=== PATIENT | female | born 1935 | race Caucasian/White ===

== ENCOUNTER 2018-04-28 04:44 | Inpatient (IN) ==
--- NOTE | 2018-04-28 04:56 | Emergency Department Report ---
General Adult HPI - General Stated complaint: dec LOC <Lincoln Lopez - 04/28/18 04:55> Time Seen by Provider: 04/28/18 04:54 <Lincoln Lopez - 04/28/18 04:55> Source: EMS, other (residential staff) <Lincoln Lopez - 04/28/18 05:04> Mode of arrival: EMS <Lincoln Lopez - 04/28/18 05:04> Limitations: other (dementia/non-verbal) <Lincoln Lopez - 04/28/18 05:04> - History of Present Illness HPI narrative: 82-year-old female presents to the emergency department for evaluation of a decline in mental status over the past 48 hours. Patient resides at [facility]. Patient has been requiring supplemental oxygen at 3 L by nasal cannula. She does not typically use supplemental oxygen. Patient does have dementia and is only typically able to say simple statements. Patient had been having difficulty staying awake and when sleeping was more difficult to arouse. History is limited by the patient's current clinical condition. <Lincoln Lopez - 04/28/18 05:14> - Related Data Home Medications Medication Instructions Recorded Confirmed Acetaminophen [Acetaminophen 8 650 mg PO PRN PRN 04/28/18 04/28/18 Hour] Aspirin [Ecotrin] 81 mg PO DAILY 04/28/18 04/28/18 Digoxin [Lanoxin] 125 mcg PO DAILY 04/28/18 04/28/18 Furosemide [Lasix] 40 mg PO DAILY 04/28/18 04/28/18 Ibuprofen [Ibu] 600 mg PO PRN PRN 04/28/18 04/28/18 Levothyroxine Sodium 50 mcg PO DAILY 04/28/18 04/28/18 Metoprolol Succinate [Toprol Xl] 50 mg PO DAILY 04/28/18 04/28/18 Milk of Magnesia [Mom] 30 ml PO PRN PRN 04/28/18 04/28/18 Ondansetron HCl 4 mg PO PRN PRN 04/28/18 04/28/18 Potassium Chloride [Klor-Con M20] 20 meq PO DAILY 04/28/18 04/28/18 Sertraline [Zoloft] 25 mg PO DAILY 04/28/18 04/28/18 <Lincoln Lopez - 04/28/18 05:22> Allergies Allergy/AdvReac Type Severity Reaction Status Date / Time Cephalosporins Allergy Verified 04/28/18 05:03 Sulfonylureas Allergy Verified 04/28/18 05:03 <Lincoln Lopez 04/28/18 05:04> Review of Systems Limitations: ROS unobtainable due to patient's medical condition <Lincoln Lopez 04/28/18 05:06> [facility] Patient Stated Medical History Dementia Yes Cataracts Yes Cardiac Arrhythmia Yes: afib Hypertension Yes Chronic Obstructive Pulmonary Yes Disease (COPD) Other Respiratory Yes: emphysema Other GI Yes: diaphragmatic hernia Hx Incontinence Yes Depression Yes <Isaias Varner - 04/28/18 07:04> Coronary artery disease, anxiety, dementia, depression, cataracts, hypertension , atrial fibrillation, COPD, constipation, altered mental status, generalized weakness, difficulty with gait <Lincoln Lopez 04/28/18 05:14> Surgical History: TKR <Lincoln Lopez 04/28/18 05:06> Family History: Reviewed and Noncontributory. <Lincoln Lopez 04/28/18 05:06> - Social History Smoking status: Unknown if ever smoked <Lincoln Lopez 04/28/18 05:14> Substance use type: does not use <Lincoln Lopez 04/28/18 05:06> Alcohol intake frequency: does not drink <Lincoln Lopez 04/28/18 05:06> Physical Exam - Limitations Limitations: other (Dementia, AMS) <Lincoln Lopez 04/28/18 05:14> - General General appearance: alert, in no apparent distress <Lincoln Lopez 04/28/18 05:14> - Normal Exams: Head:: Normocephalic without trauma <Lincoln Lopez 04/28/18 05:14> Eyes:: Pupils are PERRLA w/ EOMI, No scleral icterus, irritation, or foreign bodies noted <Lincoln Lopez 04/28/18 05:14> ENMT:: No facial trauma, nasal exudates, pharyngeal erythema, or exudates are noted <Lincoln Lopez 04/28/18 05:14> Neck:: Full range of motion, without adenopathy, JVD, bruits or thyromegaly < Lincoln Lopez [facility] 04/28/18 05:14> Chest/Respirations:: with good airflow (Bibasilar rales. ), and symmetry bilaterally <Lincoln Lopez 04/28/18 05:22> Cardiovascular:: Regular rate and rhythm, without murmur or gallop, Pulses 2+ all extremities, capillary refill, <2 seconds all extremities <Lincoln Lopez [facility] 04/28/18 05:14> Abdomen:: Bowel sounds positive, soft, non-tender, non-distended, no hepatosplenomegaly, masses or bruits noted <Lincoln Lopez 04/28/18 05:14> Lymphatic:: No lymphadenopathy, or lymphedema noted <Lincoln Lopez [facility] 04/28/18 05:14> Musculoskeletal:: No tenderness, or deformity noted, good range of motion, all extremities <Lincoln Lopez [facility] 04/28/18 05:14> Integumentary:: No rashes, hives, or bruising noted, hair and nails, without abnormality <Lincoln Lopez [facility] 04/28/18 05:14> Neurological:: Patient is alert <Lincoln Lopez [facility] 04/28/18 05:14> Course Vital Signs Temperature 97.6 F 04/28/18 04:44 Pulse Rate 78 04/28/18 04:44 Respiratory Rate 20 04/28/18 04:44 Blood Pressure 114/72 04/28/18 04:44 Pulse Oximetry 76 L 04/28/18 04:44 Temperature 97.6 F 04/28/18 04:44 Pulse Rate 63 04/28/18 05:33 Respiratory Rate 20 04/28/18 04:44 Blood Pressure 118/59 04/28/18 05:33 Pulse Oximetry 96 04/28/18 05:33 <Isaias Varner Q - 04/28/18 07:08> Medical Decision Making - [facility] Narrative Medical decision making narrative: Patient showing acute left frontal CVA, urinary tract infection, CHF exacerbation. Currently in the emergency Department patient is received 750 mg of Levaquin IV 1, 20 mg of Lasix IV 1. Discuss case with Dr. Owens, she will admit to the floor. <Isaias Varner - 04/28/18 07:08> Patient care turned over to Dr. Almaz Varner at 0600. She was given Levaquin 750 mg IV 1 at 0615 when sepsis was considered. Patient had a lactic acid less than 4 and was never hypotensive in the emergency department. <Lincoln Lopez - 04/28/18 06:11> - Medical Records Medical records reviewed: Yes: I reviewed the patient's medical records. < Isaias Varner Q - 04/28/18 07:08> - Lab Data Lab results reviewed: Yes: I reviewed the patient's lab results. <Isaias Varner - 04/28/18 07:08> Result diagrams: 04/28/18 05:24 04/28/18 05:25 <Lincoln Lopez - 04/28/18 04:55> Lab Results 04/28/18 04/28/18 04/28/18 Range/Units 05:24 05:25 05:25 WBC 5.6 (4.5-11.0) T/MM3 RBC 4.12 (4.00-5.20) M/MM3 Hgb 12.2 (12-16) GM/DL Hct 40.0 (36-46) % MCV 97.1 (80-100) UM3 MCH 29.6 (26-34) UUG MCHC 30.5 L (31-37) GM/DL RDW Std Deviation 51.7 H (36.9-50.2) FL Plt Count 170 (130-400) T/MM3 MPV 9.5 (9.4-12.4) UM3 Immature Gran % (Auto) 0.0 (0.0-0.5) % Neut % (Auto) 62.7 (33-66) % Lymph % (Auto) 24.6 (23-45) % [place] % (Auto) 11.2 H (0-9.0) % Eos % (Auto) 1.1 (0-4) % Baso % (Auto) 0.4 (0-2) % Neut # (Auto) 3.5 (1.8-7.7) T/MM3 Lymph # (Auto) 1.4 (1-4.8) T/MM3 [place] # (Auto) 0.6 (0-0.8) T/MM3 Eos # (Auto) 0.1 (0-0.5) T/MM3 Baso # (Auto) 0.0 (0-0.2) T/MM3 Abs Immat Gran (auto) 0.00 (0.00-0.03) T/MM3 Turbidity < 20 (0-20) Sodium 141 (134-144) MEQ/L Potassium 5.2 H (3.6-5) MEQ/L Chloride 100 (98-107) MEQ/L Carbon Dioxide 32 H (22-30) MEQ/L Anion Gap 9 (5-15) meq/L BUN 24.0 H (7-17) MG/DL Creatinine 0.5 L (0.7-1.2) mg/dL GFR Calculation 118 BUN/Creatinine Ratio 48 H (6-26) RATIO Glucose 90 (65-110) MG/DL Calculated Osmolality 275 (261-280) MOSM/KG Calcium 8.5 (8.4-10.2) MG/DL Total Bilirubin 0.90 (0.20-1.30) MG/DL Icterus Index < 2 (0-7) AST 23 (14-36) U/L ALT 19 (1-35) U/L Alkaline Phosphatase 66 (38-126) U/L Troponin I < 0.012 (0-0.12) ng/ml NT-Pro-B Natriuret Pep 1480 H (0-175) pg/mL Total Protein 6.5 (6.3-8.2) g/dL Albumin 3.8 (3.5-5.0) g/dL Globulin 2.7 (2.4-3.6) G/DL Albumin/Globulin Ratio 1.4 (1.1-2.2) RATIO Plasma Lactate (0.6-2.2) MMOL/L TSH 4.64 (0.47-4.68) mIU/L Specimen Hemolysis 22 (0-25) Ur Collection Type Urine, cath straight Urine Color Yellow (YELLOW) Urine Clarity Cloudy Urine pH 6.0 (5.0-8.0) Ur Specific [place] >=1.030 H (1.015-1.025) Urine Protein Trace A (NEGATIVE) Urine Glucose (UA) Negative (NEGATIVE) Urine Ketones Negative (NEGATIVE) Urine Occult Blood 1+ A (NEGATIVE) Urine Nitrate Positive A (NEGATIVE) Urine Bilirubin Negative (NEGATIVE) Urine Urobilinogen 0.2 (NORMAL) EU/DL Ur Leukocyte Esterase 2+ A (NEGATIVE) Urine RBC 5-10 H (0-3) /HPF Urine WBC 50-200 H (0-5) /HPF Urine Bacteria 3+ H (NEGATIVE) Ur Culture Indicated? Cult reflexed &setup Digoxin 0.6 L (0.8-2.0) NG/ML 04/28/18 Range/Units 06:27 WBC (4.5-11.0) T/MM3 RBC (4.00-5.20) M/MM3 Hgb (12-16) GM/DL Hct (36-46) % MCV (80-100) UM3 MCH (26-34) UUG MCHC (31-37) GM/DL RDW Std Deviation (36.9-50.2) FL Plt Count (130-400) T/MM3 MPV (9.4-12.4) UM3 Immature Gran % (Auto) (0.0-0.5) % Neut % (Auto) (33-66) % Lymph % (Auto) (23-45) % [place] % (Auto) (0-9.0) % Eos % (Auto) (0-4) % Baso % (Auto) (0-2) % Neut # (Auto) (1.8-7.7) T/MM3 Lymph # (Auto) (1-4.8) T/MM3 [place] # (Auto) (0-0.8) T/MM3 Eos # (Auto) (0-0.5) T/MM3 Baso # (Auto) (0-0.2) T/MM3 Abs Immat Gran (auto) (0.00-0.03) T/MM3 Turbidity (0-20) Sodium (134-144) MEQ/L Potassium (3.6-5) MEQ/L Chloride (98-107) MEQ/L Carbon Dioxide (22-30) MEQ/L Anion Gap (5-15) meq/L BUN (7-17) MG/DL Creatinine (0.7-1.2) mg/dL GFR Calculation BUN/Creatinine Ratio (6-26) RATIO Glucose (65-110) MG/DL Calculated Osmolality (261-280) MOSM/KG Calcium (8.4-10.2) MG/DL Total Bilirubin (0.20-1.30) MG/DL Icterus Index (0-7) AST (14-36) U/L ALT (1-35) U/L Alkaline Phosphatase (38-126) U/L Troponin I (0-0.12) ng/ml NT-Pro-B Natriuret Pep (0-175) pg/mL Total Protein (6.3-8.2) g/dL Albumin (3.5-5.0) g/dL Globulin (2.4-3.6) G/DL Albumin/Globulin Ratio (1.1-2.2) RATIO Plasma Lactate 0.9 (0.6-2.2) MMOL/L TSH (0.47-4.68) mIU/L Specimen Hemolysis (0-25) Ur Collection Type Urine Color (YELLOW) Urine Clarity Urine pH (5.0-8.0) Ur Specific [place] (1.015-1.025) Urine Protein (NEGATIVE) Urine Glucose (UA) (NEGATIVE) Urine Ketones (NEGATIVE) Urine Occult Blood (NEGATIVE) Urine Nitrate (NEGATIVE) Urine Bilirubin (NEGATIVE) Urine Urobilinogen (NORMAL) EU/DL Ur Leukocyte Esterase (NEGATIVE) Urine RBC (0-3) /HPF Urine WBC (0-5) /HPF Urine Bacteria (NEGATIVE) Ur Culture Indicated? Digoxin (0.8-2.0) NG/ML <Isaias Varner Q - 04/28/18 07:08> - Radiology Data Radiology results reviewed: Yes: I reviewed the patient's radiology results. < Isaias Varner - 04/28/18 07:08> CT head: Left frontal acute versus subacute infarct Chest x-ray cardiomegaly, edema consistent with CHF exacerbation, cannot completely rule out infiltrate <Isaias Varner - 04/28/18 07:08> - EKG Data EKG #1 EKG results narrative: Atrial Fibrillation. 61 bpm. No STEMI. <Lincoln Lopez - 04/28/18 05:49> Disposition Clinical Impression: CVA (cerebral vascular accident) Qualifiers: CVA mechanism: occlusion Precerebral and cerebral artery: anterior cerebral artery Laterality of affected vessel: left Qualified Code(s): I63.522 - Cerebral infarction due to unspecified occlusion or stenosis of left anterior cerebral artery Urinary tract infection Qualifiers: Urinary tract infection type: acute cystitis Hematuria presence: without hematuria Qualified Code(s): N30.00 - Acute cystitis without hematuria CHF exacerbation Qualifiers: Heart failure type: unspecified Qualified Code(s): I50.9 - Heart failure, unspecified <Lincoln Lopez - 04/28/18 18:13> Disposition: 02 To [facility] Acute Care <Lincoln Lopez - 04/28/18 18:13> Condition: Stable <Lincoln Lopez - 04/28/18 18:13> Instructions: <Lincoln Lopez - 04/28/18 04:55> Prescriptions: No Action Ibuprofen [Ibu] 600 mg PO PRN PRN PRN Reason: Pain Acetaminophen [Acetaminophen 8 Hour] 650 mg PO PRN PRN PRN Reason: Pain Sertraline [Zoloft] 25 mg PO DAILY Metoprolol Succinate [Toprol Xl] 50 mg PO DAILY Potassium Chloride [Klor-Con M20] 20 meq PO DAILY Levothyroxine Sodium 50 mcg PO DAILY Digoxin [Lanoxin] 125 mcg PO DAILY Aspirin [Ecotrin] 81 mg PO DAILY Ondansetron HCl 4 mg PO PRN PRN PRN Reason: Nausea Milk of Magnesia [Mom] 30 ml PO PRN PRN PRN Reason: Constipation Furosemide [Lasix] 40 mg PO DAILY <Lincoln Lopez - 04/28/18 05:22> Referrals: Ayana Woods MD [Primary Care Provider] - <Lincoln Lopez - 04:55> Forms: <Lincoln Lopez - 04/28/18 04:55> Time of Disposition: 07:06 <Isaias Varner - 04/28/18 07:08> - Seen By: physician <Isaias Varner - 04/28/18 07:08>
--- OUTSIDE RECORDS SUMMARY | 2018-04-28 05:02 | External Medical Summary | Continuity of Care Document ---
:1935 Author Organization [employer] Phone Unavailable Care Team Providers Name Role Phone LENO MIRANDA M.D. Unavailable Insurance Providers Guarantor Suki Bennett Address [address] [place] [phone] Payer [employer] Medicare Policy Number [id number] Subscriber's Name Suki Bennett Relationship 01 Self / Same As Patient Effective Date 09 Chief Complaint and Reason for Visit Chief Complaint Chest Pain Reason for Visit Chest pain Problems Active Problems Medical Problem Onset Date Status Anemia Unknown Acute Bradycardia Unknown Resolved [facility]R 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 COPD (chronic obstructive pulmonary disease) 09/30/2011 Acute COPD exacerbation Unknown Acute Chest pain Unknown Acute Encounter for long-term (current) use of other medications Unknown Acute Hypotension Unknown Acute Hypotension Unknown Acute Hypoventilation Unknown Acute Hypoxia Unknown Acute Low back pain Unknown Acute Lumbar strain Unknown Acute Minor head injury Unknown Acute Pneumonia Unknown Acute Pneumonia Unknown Acute Pulmonary HTN Unknown Chronic Respiratory failure, acute Unknown Acute UTI (urinary tract infection) Unknown Acute Urinary tract infection Unknown Acute Past Problems Medical Problem Onset Date Bronchitis Unknown Leg edema Unknown Nonspecific chest pain Unknown Peripheral edema Unknown Peripheral edema Unknown Weakness Unknown Medications Current Home Medications Medication Dose Units Route Directions Days Qty Instructions Start Date Aspirin 81 Mg Oral Daily 10/24/15 (Aspir-81) 81 Mg Tab Digoxin 0.125 Mg 1 Tablet Oral Daily 30 Tablet 12/09/16 Tab Furosemide 40 Mg 2 Tab Oral Daily 65 Tablet TAKE 2 IN THE 03/07/17 Tab AM AND 1 IN THE AFTERNOON FOR 5 DAYS, THEN BACK TO 2 IN THE AM. Levothyroxine 50 Mcg Oral Daily 30 Tablet 03/11/17 Sodium 50 Mcg Tab Metoprolol 1 Tab Oral Daily 30 Tablet 12/09/16 Succinate (Toprol Xl) 50 Mg Tab Potassium 10 Meq Oral Twice A Day 65 Tablet TAKE TID FOR 5 01/27/17 Chloride (K-Tabs) DAYS, THEN BACK 10 Meq Tab TO BID Past Home Medications Medication Directions Ordered Status Albuterol Sulfate (Proventil Hfa) 05/07/16 Discontinued Hfa Aer, 1 Inhalation Ciprofloxacin Hcl (Cipro) 500 Mg Twice A Day 12/03/16 Discontinued Tab, 500 Mg Oral Digoxin 0.125 Mg Tab, 1 Tablet Daily 09/13/16 Discontinued Oral Digoxin (Lanoxin) 0.125 Mg Tab, 1 Daily 02/13/16 Discontinued Tab Oral Digoxin 0.125 Mg Tab, 1 Tablet Daily 09/13/16 Discontinued Oral Digoxin (Lanoxin) 0.125 Mg Tab, 1 Daily 02/09/16 Discontinued Tab Oral Digoxin (Lanoxin) 0.125 Mg Tab, 1 Daily 10/14/15 Discontinued Tab Oral Digoxin (Lanoxin) 0.125 Mg Tab, 1 Daily 09/09/15 Discontinued Tab Oral Digoxin (Lanoxin) 0.125 Mg Tab, 1 Daily 02/10/15 Discontinued Tab Oral Digoxin (Lanoxin) 0.125 Mg Tab, 1 Daily 01/22/15 Discontinued Tab Oral Digoxin (Lanoxin) 0.125 Mg Tab, 1 Daily 12/23/14 Discontinued Tab Oral Digoxin (Lanoxin) 0.125 Mg Tab, 1 Daily 11/13/14 Discontinued Tab Oral Digoxin (Lanoxin) 0.125 Mg Tab, 1 Daily 10/07/14 Discontinued Tab Oral Digoxin (Lanoxin) 0.125 Mg Tab, 1 Daily 09/17/14 Discontinued Tab Oral Digoxin (Lanoxin) 0.125 Mg Tab, 1 Daily 03/13/14 Discontinued Tab Oral Digoxin (Lanoxin) 0.125 Mg Tab, 1 Daily 10/01/13 Discontinued Tab Oral Digoxin (Lanoxin) 0.125 Mg Tab, 1 Daily 08/28/13 Discontinued Tab Oral Digoxin (Lanoxin) 0.125 Mg Tab, 1 Daily 08/22/13 Discontinued Tab Oral Digoxin (Lanoxin) 0.125 Mg Tab, 1 Daily 01/19/13 Discontinued Tab Oral Digoxin (Lanoxin) 0.125 Mg Tab, 1 Daily 09/28/12 Discontinued Tab Oral Digoxin (Lanoxin) 0.125 Mg Tab, 1 Daily 06/05/12 Discontinued Tab Oral Digoxin (Lanoxin) 0.125 Mg Tab, 1 Daily 03/10/12 Discontinued Tab Oral Digoxin (Lanoxin) 0.125 Mg Tab, 1 Daily 12/06/11 Discontinued Tab Oral Digoxin (Lanoxin) 0.125 Mg Tab, 1 Daily 08/03/11 Discontinued Tab Oral Digoxin (Lanoxin) 0.125 Mg Tab, 1 Daily 07/13/10 Discontinued Tab Oral Furosemide 40 Mg Tab, 2 Tab Oral Daily 06/28/16 Discontinued Furosemide 40 Mg Tab, 2 Tab Oral Daily 06/18/16 Discontinued Furosemide 40 Mg Tab, 2 Tab Oral Daily 03/15/16 Discontinued Furosemide 40 Mg Tab, 2 Tab Oral Daily 02/13/16 Discontinued Furosemide 40 Mg Tab, 2 Tab Oral Daily 02/24/15 Discontinued Furosemide 40 Mg Tab, 1 Tab Oral Daily 02/06/15 Discontinued Furosemide (Lasix 40 Mg Po) 40 Mg Daily 12/12/13 Discontinued Tab, 2 Tab Oral Furosemide (Lasix) 40 Mg Tab, 2 Twice A Day 06/18/14 Discontinued Tab Oral Furosemide 40 Mg Tab, 2 Tab Oral Daily 08/26/14 Discontinued Furosemide (Lasix 40 Mg Po) 40 Mg Daily 09/12/13 Discontinued Tab, 2 Tab Oral Furosemide (Lasix 40 Mg Po) 40 Mg Daily 07/03/13 Discontinued Tab, 2 Tab Oral Furosemide (Lasix 40 Mg Po) 40 Mg Daily 06/15/13 Discontinued Tab, 40 Mg Oral Furosemide (Lasix) 20 Mg Tab, 1 Daily 01/19/13 Discontinued Tab Oral Furosemide (Lasix) 20 Mg Tab, 1 Daily 09/28/12 Discontinued Tab Oral Furosemide (Lasix) 20 Mg Tab, 1 Daily 06/05/12 Discontinued Tab Oral Furosemide (Lasix) 20 Mg Tab, 1 Daily 03/10/12 Discontinued Tab Oral Furosemide (Lasix) 20 Mg Tab, 1 Daily 12/06/11 Discontinued Tab Oral Furosemide (Lasix) 20 Mg Tab, 1 Daily 08/03/11 Discontinued Tab Oral Furosemide (Lasix) 20 Mg Tab, 1 Daily 07/13/10 Discontinued Tab Oral Hydrocodone-Acetaminophen (Lortab Every 6 Hours As Needed 09/16/11 Discontinued 5/500) Tab, 1 Tab Oral Levothyroxine Sodium 25 Mcg Tab, Daily 02/17/17 Discontinued 50 Mcg Oral Levothyroxine Sodium 25 Mcg Tab, Daily 12/03/16 Discontinued 25 Mcg Oral Metolazone 2.5 Mg Tab, 2.5 Mg Oral Daily 03/29/16 Discontinued Metoprolol Succinate (Toprol Xl) Daily 09/13/16 Discontinued 50 Mg Tab, 1 Tab Oral Metoprolol Succinate (Toprol Xl) Daily 02/13/16 Discontinued 50 Mg Tab, 1 Tab Oral Metoprolol Succinate (Toprol Xl) Daily 09/09/15 Discontinued 50 Mg Tab, 1 Tab Oral Metoprolol Succinate (Toprol Xl) Daily 02/10/15 Discontinued 50 Mg Tab, 1 Tab Oral Metoprolol Succinate (Toprol Xl) Daily 01/22/15 Discontinued 50 Mg Tab, 1 Tab Oral Metoprolol Succinate (Toprol Xl) Daily 12/23/14 Discontinued 50 Mg Tab, 1 Tab Oral Metoprolol Succinate (Toprol Xl) Daily 11/13/14 Discontinued 50 Mg Tab, 1 Tab Oral Metoprolol Succinate (Toprol Xl) Daily 10/07/14 Discontinued 50 Mg Tab, 1 Tab Oral Metoprolol Succinate (Toprol Xl) Daily 09/17/14 Discontinued 50 Mg Tab, 1 Tab Oral Metoprolol Succinate (Toprol Xl) Daily 03/13/14 Discontinued 50 Mg Tab, 50 Mg Oral Metoprolol Succinate (Toprol Xl) Daily 02/04/14 Discontinued 50 Mg Tab, 50 Mg Oral Metoprolol Succinate (Toprol Xl) Daily 08/22/13 Discontinued 50 Mg Tab, 50 Mg Oral Metoprolol Succinate (Toprol Xl) Daily 02/23/13 Discontinued 50 Mg Tab, 50 Mg Oral Metoprolol Succinate (Toprol Xl) Daily 08/07/12 Discontinued 50 Mg Tab, 50 Mg Oral Metoprolol Succinate (Toprol Xl) Daily 05/09/12 Discontinued 50 Mg Tab, 50 Mg Oral Metoprolol Succinate (Toprol Xl) Daily 03/02/12 Discontinued 50 Mg Tab, 50 Mg Oral Metoprolol Succinate (Toprol Xl) Daily 12/06/11 Discontinued 50 Mg Tab, 50 Mg Oral Metoprolol Succinate (Toprol Xl) Daily 06/11/11 Discontinued 50 Mg Tab, 50 Mg Oral Metoprolol Succinate (Toprol Xl) Daily 07/13/10 Discontinued 25 Mg Tab, 1 Tab Oral Nitrofurantoin Monohyd Macro Twice A Day 12/06/16 Discontinued (Macrobid) 100 Mg Cap, 100 Mg Oral Potassium Bicarbonate Daily 01/19/13 Discontinued (K-Effervescent) 25 Meq Tab, 25 Meq Oral Potassium Bicarbonate Daily 09/28/12 Discontinued (K-Effervescent) 25 Meq Tab, 25 Meq Oral Potassium Bicarbonate Daily 06/05/12 Discontinued (K-Effervescent) 25 Meq Tab, 25 Meq Oral Potassium Bicarbonate Daily 03/10/12 Discontinued (K-Effervescent) 25 Meq Tab, 25 Meq Oral Potassium Bicarbonate Daily 12/06/11 Discontinued (K-Effervescent) 25 Meq Tab, 25 Meq Oral Potassium Bicarbonate Daily 06/11/11 Discontinued (K-Effervescent) 25 Meq Tab, 25 Meq Oral Potassium Bicarbonate Daily 07/13/10 Discontinued (Klor-Con/Ef) 25 Meq Tabef, 25 Meq Oral Potassium Chloride (K-Tabs) 10 Meq Twice A Day 06/18/16 Discontinued Tab, 10 Meq Oral Potassium Chloride (K-Tabs) 10 Meq Twice A Day 02/13/16 Discontinued Tab, 10 Meq Oral Potassium Chloride (K-Tabs) 10 Meq Twice A Day 02/09/16 Discontinued Tab, 10 Meq Oral Potassium Chloride (K-Tabs) 10 Meq Twice A Day 02/09/16 Discontinued Tab, 10 Meq Oral Potassium Chloride (K-Tabs) 10 Meq Twice A Day 10/24/15 Discontinued Tab, 10 Meq Oral Potassium Chloride (Potassium Daily 02/06/15 Discontinued Chloride Er) 10 Meq Tab, 1 Tab Oral Potassium Chloride (Potassium Twice A Day 08/26/14 Discontinued Chloride Er) 10 Meq Tab, 1 Tab Oral Potassium Chloride (Potassium Twice A Day 07/26/14 Discontinued Chloride Er) 10 Meq Tab, 1 Tab Oral Potassium Chloride (Potassium Twice A Day 12/12/13 Discontinued Chloride Er) 10 Meq Tab, 1 Tab Oral Potassium Chloride (Potassium Twice A Day 10/08/13 Discontinued Chloride Er) 10 Meq Tab, 1 Tab Oral Potassium Chloride (Potassium Daily 08/28/13 Discontinued Chloride Er) 10 Meq Tab, 1 Tab Oral Potassium Chloride (Potassium Daily 07/05/13 Discontinued Chloride Er) 10 Meq Tab, 2 Tab Oral Potassium Chloride (Potassium Daily 06/15/13 Discontinued Chloride Er) 10 Meq Tab, 2 Tab Oral Potassium Chloride (Potassium Daily 06/01/13 Discontinued Chloride Er) 10 Meq Tab, 10 Meq Oral Prednisone 10 Mg Tab, 10 Mg Oral As Directed for Copd 06/26/16 Discontinued Prednisone 10 Mg Tab, 10 Mg Oral Twice A Day for Not Specified 04/07/16 Discontinued Prednisone 10 Mg Tab, 10 Mg Oral Daily for Not Specified 04/07/16 Discontinued Social History Social History Problem Response Recorded Date/Time Onset Date Status Hx Alcohol Use No 04/04/2016 7:38pm Not Applicable Not Applicable Hx Smoking Exposure Yes 04/04/2016 7:38pm Not Applicable Not Applicable Smoking Status Former smoker 04/15/2017 9:14am Not Applicable Not Applicable Query Response Start Date Stop Date Smoking Status Former smoker Hospital Discharge Instructions No hospital discharge instructions. Plan of Care Discharge Date 04/15/17 10:28am Disposition 01 HOME, SELF-CARE Condition at Discharge Stable Instructions/Education Provided Instructions from visit on: 02/16/17 Lab today.Encouraged her to explore ways with her family that might however to remember to take her medications in a more reliable manner though I think she has done pretty well for the last month probably.No change in medications. Reassess here in 6-8 weeks. Prescriptions See Medication Section Referrals LENO MIRANDA M.D. Address: [address] [place] [phone] Additional Instructions/Education Please follow up with your doctor in 2-3 days.
Please take your medications and wear oxygen.
Please call primary care doctor or return to emergency department immediately if fever, difficulty of breathing, persistent/worsening pain, or anything concerning. Functional Status No functional status results. Allergies, Adverse Reactions, Alerts Allergen Type Severity Reaction Status Last Updated Cephalosporins ([id number]) Allergy Unknown Active 03/03/17 Sulfonylureas ([id number]) Allergy Unknown Active 03/03/17 Sulfones ([id number]) Allergy Unknown Active 03/03/17 Immunizations Immunization Event Date Type Not Given Dose Number Lot Number Director Cpg Reason Tetanus, 08/31/10 Administered 1 Diphtheria Vaccine Vital Signs Acute Vital Signs Vital Response Date/Time Blood Pressure 126/69 mm Hg 04/15/2017 10:22am Blood Pressure Mean 88 mm Hg 04/15/2017 10:22am Temperature (Fahrenheit) 97.7 degrees F (96.0 - 99.9) 04/15/2017 9:01am Temperature (Calculated Celsius) 36.78994 degrees C 04/15/2017 9:01am Temperature Source Oral 04/07/2016 8:45am Temperature Source Oral 04/15/2017 9:01am Pulse Pulse Rate (adult) 72 bpm (60 - 100) 06/26/2016 7:47pm Pulse Rate: ED 90 bpm 04/15/2017 10:22am Apical Pulse Rate 85 bpm (60 - 90) 04/07/2016 8:47am Respiratory Rate 18 breaths per minute (10 - 20) 04/15/2017 10:22am Height (Feet) 5 ft 04/15/2017 9:01am Height (Inches) 2.0 in. 04/15/2017 9:01am Weight (Pounds) 142.4 lbs 04/15/2017 9:01am Height 5 ft 2 in 04/15/2017 9:01am Weight 142.40 lb 04/15/2017 9:01am Body Mass Index 26.0 kg/m^2 04/15/2017 9:01am Ambulatory Vital Signs Vital Response Date/Time Height 5 ft 1 in 02/16/2017 1:55pm Weight 128 lbs 02/16/2017 1:55pm Blood Pressure, Sitting, Left Arm 125/65 mm Hg 02/16/2017 1:55pm Body Surface Area 1.59 m2 02/16/2017 1:55pm Body Mass Index 24.2 kg/m2 02/16/2017 1:55pm Pulse Oximetry Pulse Oximetry 02/16/2017 1:55pm Results Laboratory Results Test Name Result Units Flags Reference Collection Result Comments Date/Time Date/Time Immature 2.7 % L 3.0-15.9 10/26/2015 10/26/2015 Platelet 6:00am 7:06am Fraction Activated 28.5 SECONDS 24.0-37.0 10/23/2015 10/23/2015 Partial 6:10pm 6:43pm Thromboplas t Time Urine WBC 0-1 /hpf NONE 10/25/2015 10/25/2015 Clumps 10:51am 11:21am Urine Casts 1-3 GRANULAR /lpf NONE 10/25/2015 10/25/2015 10:51am 11:21am Urine 1+ 10/25/2015 10/25/2015 Amorphous 10:51am 11:21am Sediment Urine Other Trichomonas 10/25/2015 10/25/2015 10:51am 11:21am Bedside 167 mg/dL H 70-120 10/25/2015 10/25/2015 Notify Glucose 9:26am 9:51am Nurse &#10 ; Amylase 57 U/L 16-108 10/23/2015 10/23/2015 Level 6:49pm 7:18pm Total 93 U/L 10-180 10/26/2015 10/26/2015 Creatine 6:00am 7:00am Kinase Creatine 1.2 ng/mL # 0.0-6.0 10/26/2015 10/26/2015 Kinase MB 6:00am 7:19am Lactic Acid 2.3 mmol/L H 0.5-2.2 10/23/2015 10/23/2015 Level 6:49pm 7:18pm Arterial 7.44 7.35-7.45 10/27/2015 10/27/2015 Blood pH 2:00pm 2:42pm Blood Gas 58 mmHg H 35-45 10/27/2015 10/27/2015 PCO2 2:00pm 2:42pm Blood Gas 119 mmHg H 89-100 10/27/2015 10/27/2015 PO2 2:00pm 2:42pm Blood Gas 12.9 mEq/L 10/27/2015 10/27/2015 Base Excess 2:00pm 2:42pm Arterial 41.2 mM/L H 21-27 10/27/2015 10/27/2015 Blood Total 2:00pm 2:42pm CO2 Arterial 39.4 mEq/L H 10/27/2015 10/27/2015 Blood HCO3 2:00pm 2:42pm MRSA MRSA NEGATIVE NEGATIVE 04/04/2016 04/04/2016 Surveillanc 6:40pm 9:09pm e Screen Digoxin 0.7 ng/ml L 0.8-2.0 06/26/2016 06/26/2016 Level 7:35pm 8:41pm White Blood 7.1 x10E3/uL 3.4-10.8 12/02/2016 12/03/2016 Count 2:05pm 6:08am Red Blood 4.58 x10E6/uL 3.77-5.28 12/02/2016 12/03/2016 Count 2:05pm 6:08am Hemoglobin 13.8 g/dL 11.1-15.9 12/02/2016 12/03/2016 2:05pm 6:08am Hematocrit 43.5 % 34.0-46.6 12/02/2016 12/03/2016 2:05pm 6:08am Mean 95 fL 79-97 12/02/2016 12/03/2016 Corpuscular 2:05pm 6:08am Volume Mean 30.1 pg 26.6-33.0 12/02/2016 12/03/2016 Corpuscular 2:05pm 6:08am Hemoglobin Mean 31.7 g/dL 31.5-35.7 12/02/2016 12/03/2016 Corpuscular 2:05pm 6:08am Hemoglobin Concent Red Cell 13.9 % 12.3-15.4 12/02/2016 12/03/2016 Distributio 2:05pm 6:08am n Width Platelet 206 x10E3/uL 150-379 12/02/2016 12/03/2016 Count 2:05pm 6:08am Neutrophils 74 % . 12/02/2016 12/03/2016 % (Send 2:05pm 6:08am Out) Lymphocytes 19 % . 12/02/2016 12/03/2016 2:05pm 6:08am Monocytes 6 % . 12/02/2016 12/03/2016 2:05pm 6:08am Eosinophils 1 % . 12/02/2016 12/03/2016 2:05pm 6:08am Basophils 0 % . 12/02/2016 12/03/2016 2:05pm 6:08am Absolute 5.2 x10E3/uL 1.4-7.0 12/02/2016 12/03/2016 Neutrophils 2:05pm 6:08am (auto) Absolute 1.4 x10E3/uL 0.7-3.1 12/02/2016 12/03/2016 Lymphocytes 2:05pm 6:08am (auto) Absolute 0.4 x10E3/uL 0.1-0.9 12/02/2016 12/03/2016 Monocytes 2:05pm 6:08am (auto) Absolute 0.1 x10E3/uL 0.0-0.4 12/02/2016 12/03/2016 Eosinophils 2:05pm 6:08am (auto) Absolute 0.0 x10E3/uL 0.0-0.2 12/02/2016 12/03/2016 Basophils 2:05pm 6:08am (auto) Immature 0 % . 12/02/2016 12/03/2016 Granulocyte 2:05pm 6:08am s Absolute 0.0 x10E3/uL 0.0-0.1 12/02/2016 12/03/2016 Immature 2:05pm 6:08am Granulocyte (auto Sedimentati 24 mm/hr 0-40 12/02/2016 12/03/2016 Performed at: [facility]
on Rate, 2:05pm 7:11am [address] [place] [phone]
[employer] Tech: DIDI Cao MD, Phone: [phone] &# 10; C-Reactive 1.4 mg/L 0.0-4.9 12/02/2016 12/03/2016 Performed at: [facility]
Protein, 2:05pm 11:10am [address] [place] [phone]
[employer] Tech: DIDI Cao MD, Phone: [phone] &# 10; e Serum Total 7.0 g/dL 6.0-8.5 12/02/2016 12/03/2016 Protein 2:05pm 1:02pm Albumin 4.5 g/dL 3.5-4.7 12/02/2016 12/03/2016 2:05pm 1:02pm Globulin 2.5 g/dL 1.5-4.5 12/02/2016 12/03/2016 2:05pm 1:02pm Albumin/Jenny 1.8 1.1-2.5 12/02/2016 12/03/2016 bulin Ratio 2:05pm 1:02pm Total 0.5 mg/dL 0.0-1.2 12/02/2016 12/03/2016 Bilirubin 2:05pm 1:02pm Alkaline 69 IU/L 39-117 12/02/2016 12/03/2016 Phosphatase 2:05pm 1:02pm Aspartate 12 IU/L 0-40 12/02/2016 12/03/2016 Amino 2:05pm 1:02pm Transf (AST/SGOT) Alanine 6 IU/L 0-32 12/02/2016 12/03/2016 Performed at: [facility]
Aminotransf 2:05pm 1:02pm [address] [place] [address] [address], [place], [place] [phone]
[employer] Tech: DIDI Cao MD, Phone: [phone]
(ALT/SGPT) Urine 1.024 1.005-1.030 12/02/2016 12/03/2016 Specific 2:05pm 6:08am [place] Urine pH 6.0 5.0-7.5 12/02/2016 12/03/2016 2:05pm 6:08am Urine Color Yellow Yellow 12/02/2016 12/03/2016 2:05pm 6:08am Urine Cloudy H Clear 12/02/2016 12/03/2016 Appearance 2:05pm 6:08am Urine 2+ H Negative 12/02/2016 12/03/2016 Leukocyte 2:05pm 6:08am Esterase Urine Trace 12/02/2016 12/03/2016 Reference Protein 2:05pm 6:08am Range: Negative/Trace
Urine Negative Negative 12/02/2016 12/03/2016 Glucose 2:05pm 6:08am Urine Negative Negative 12/02/2016 12/03/2016 Ketones 2:05pm 6:08am Urine 1+ H Negative 12/02/2016 12/03/2016 Occult 2:05pm 6:08am Blood Urine Negative Negative 12/02/2016 12/03/2016 Bilirubin 2:05pm 6:08am Urine 0.2 mg/dL 0.2-1.0 12/02/2016 12/03/2016 Urobilinoge 2:05pm 6:08am n Urine Positive H Negative 12/02/2016 12/03/2016 Nitrite 2:05pm 6:08am Direct See below: . 12/02/2016 12/03/2016 Microscopic was indicated and was performed.
Microscopic 2:05pm 12:10pm Performed at: [facility] - [facility] &# 10; Examination [address] [place] [address], [place], [place] [phone]&#13 ;
([facility] [employer] Tech: DIDI Cao MD, Phone: [phone]

Microscopic was indicated and was performed.

--- 12/03/16 1210 ---
MICROSCOPIC EX previously reported as:
See below:
Microscopic was indicated and was performed.
Performed at: [facility]
[address] [phone]
[employer] Tech: DIDI Cao MD, Phone: [phone]

Urine >30 /hpf H 0 - 5 12/02/2016 12/03/2016 Microscopic 2:05pm 12:10pm WBC Urine 3-10 /hpf H 0 - 2 12/02/2016 12/03/2016 Microscopic 2:05pm 12:10pm RBC Urine >10 /hpf H 0 - 10 12/02/2016 12/03/2016 Epithelial 2:05pm 12:10pm Cells Urine Mucus Present Not Estab. 12/02/2016 12/03/2016 2:05pm 12:10pm Urine Moderate H None 12/02/2016 12/03/2016 Bacteria seen/Few 2:05pm 12:10pm URINALYSIS This specimen has reflexed to a Urine Culture.
. 12/05/2016 REFLEX Performed at: [facility]
2:05pm 5:06pm [address] [place] [phone]
[employer] Tech: DIDI Cao MD, Phone: [phone]

This specimen has reflexed to a Urine Culture.

--- 12/05/16 1706 ---
URINALYSIS REFL previously reported as:

This specimen has reflexed to a Urine Culture.
Performed at: [facility]
[address] [facility] [address], [place], [place] [phone]
[employer] Tech: DIDI Cao MD, Phone: [phone]

Urine Final report H . 12/02/2016 12/05/2016 Culture 2:05pm 5:06pm Reflexed Urine Escherichia coli, identified by an automated biochemical
. 12/02/2016 12/05/2016 Culture system.
2:05pm 5:06pm Result 1 Greater than 100,000 colony forming units per mL
Urine Cult S=Susceptible; I=Intermediate; R=Resistant
. 12/02/2016 12/05/2016 Antimic P=Positive; N=Negative
2:05pm 5: 06pm Susceptibil MICS are expressed in micrograms per mL
ity Antibiotic RSLT#1 RSLT#2 RSLT#3 RSLT#4 &# 10; Amoxicillin/Clavulanic Acid I
Ampicillin R
Cefazolin R
Cefepime S
Ceftriaxone S
Cefuroxime I
Cephalothin R
Ciprofloxacin R
Ertapenem S
Gentamicin S
Imipenem S
Levofloxacin R
Nitrofurantoin S
Piperacillin R
Tetracycline S
Tobramycin S
Trimethoprim/Sulfa S
Performed at: [facility]
[address] [facility] [address], [place], [place] [phone]
[employer] Tech: DIDI Cao MD, Phone: [phone]
Urine Color YELLOW 01/03/2017 01/03/2017 7:18pm 7:39pm Urine SL CLOUDY 01/03/2017 01/03/2017 Appearance 7:18pm 7:39pm Urine NEGATIVE NEGATIVE 01/03/2017 01/03/2017 Glucose 7:18pm 7:39pm (UA) Urine NEGATIVE NEGATIVE 01/03/2017 01/03/2017 Bilirubin 7:18pm 7:39pm Urine NEGATIVE NEGATIVE 01/03/2017 01/03/2017 Ketones 7:18pm 7:39pm Urine 1.025 1.005-1.030 01/03/2017 01/03/2017 Specific 7:18pm 7:39pm [place] Urine 1+ H NEGATIVE 01/03/2017 01/03/2017 Occult 7:18pm 7:39pm Blood Urine pH 6.0 4.5-8.0 01/03/2017 01/03/2017 7:18pm 7:39pm Urine NEGATIVE NEGATIVE 01/03/2017 01/03/2017 Protein 7:18pm 7:39pm Urine 2.0 E.U./dL 0.2-1.0 01/03/2017 01/03/2017 Urobilinoge 7:18pm 7:39pm n Urine NEGATIVE NEGATIVE 01/03/2017 01/03/2017 Nitrate 7:18pm 7:39pm Urine 1+ H NEGATIVE 01/03/2017 01/03/2017 Leukocyte 7:18pm 7:39pm Esterase Urine RBC 3-5 /hpf H NONE 01/03/2017 01/03/2017 7:18pm 7:41pm Urine WBC 3-5 /hpf NONE 01/03/2017 01/03/2017 7:18pm 7:41pm Urine 75-100 /lpf 01/03/2017 01/03/2017 Epithelial 7:18pm 7:41pm Cells Urine 2+ /hpf H NONE 01/03/2017 01/03/2017 THIS SPECIMEN MEETS MEDICAL STAFF CRITERIA
Bacteria 7:18pm 7:41pm FOR A URINE CULTURE. A CULTURE HAS BEEN SET. Urine Mucus TRACE /lpf NONE 01/03/2017 01/03/2017 7:18pm 7:41pm B-Type 162 pg/mL H 15-100 01/03/2017 01/03/2017 Natriuretic 7:05pm 8:14pm Peptide Free 1.18 ng/dL 0.82-1.77 02/16/2017 02/17/2017 Thyroxine 2:15pm 8:14am (T4) Calculated Thyroid 5.670 uIU/mL H 0.450-4.500 02/16/2017 02/17/2017 Performed at: [facility] - [facility] [place]
Stimulating 2:15pm 8:14am [address] [address], [place], [place] [phone]
[employer] Tech: DIDI Cao MD, Phone: [phone]
(TSH) Glucose 99 mg/dL 65-99 02/16/2017 02/17/2017 Level 2:15pm 8:14am Blood Urea 19 mg/dL 8-02/16/2017 02/17/2017 Nitrogen 2:15pm 8:14am Creatinine 0.86 mg/dL 0.57-1.00 02/16/2017 02/17/2017 2:15pm 8:14am BUN/Creatin 22 11-02/16/2017 02/17/2017 Effective February 21, 2017 BUN/Creatinine Ratio
ine Ratio 2:15pm 8:14am reference interval will be changing to:&# 13;
Age Male Female
0 days - 7 days 9 - 9 -
8 days - 30 days 8 - 32 10 - 33
1 month - 6 months 11 - 57 11 - 54
7 months - 1 year 20 - 71 20 - 71
2 years - 5 years 19 - 51 19 - 49
6 years - 12 years 14 - 34 13 - 32
13 years - 17 years 10 - 22 10 - 22
18 years - 59 years 9 - 20 9 - 23
>59 years 10 - 24 12 - 28 &# 10; Sodium 145 mmol/L H 134-144 02/16/2017 02/17/2017 Level 2:15pm 8:14am Potassium 3.6 mmol/L 3.5-5.2 02/16/2017 02/17/2017 Level 2:15pm 8:14am Chloride 94 mmol/L L 96-106 02/16/2017 02/17/2017 Level 2:15pm 8:14am Carbon 36 mmol/L H 18-29 02/16/2017 02/17/2017 Dioxide 2:15pm 8:14am Level Calcium 8.9 mg/dL 8.7-10.3 02/16/2017 02/17/2017 Level 2:15pm 8:14am EGFR IF 64 >59 02/16/2017 02/17/2017 Result Units: NONAFRICN 2:15pm 8:14am mL/min/1.73&#1 AM 3;
EGFR IF 74 >59 02/16/2017 02/17/2017 Result Units: AFRICN AM 2:15pm 8:14am mL/min/1.73&#1 3;
White Blood 6.5 K/uL 5.0-10.0 04/15/2017 04/15/2017 Count 9:05am 9:18am Red Blood 4.66 M/uL 4.20-5.40 04/15/2017 04/15/2017 Count 9:05am 9:18am Hemoglobin 14.0 g/dL 12.0-16.0 04/15/2017 04/15/2017 9:05am 9:18am Hematocrit 43.4 % 38.0-47.0 04/15/2017 04/15/2017 9:05am 9:18am Mean 93.1 fL 82.0-100.0 04/15/2017 04/15/2017 Corpuscular 9:05am 9:18am Volume Mean 30.0 pg 26.0-33.0 04/15/2017 04/15/2017 Corpuscular 9:05am 9:18am Hemoglobin Mean 32.3 g/dL 31.0-36.0 04/15/2017 04/15/2017 Corpuscular 9:05am 9:18am Hemoglobin Concent Red Cell 14.6 % H 11.5-14.5 04/15/2017 04/15/2017 Distributio 9:05am 9:18am n Width RDW 50.2 fL H 36.4-46.3 04/15/2017 04/15/2017 Standard 9:05am 9:18am Deviation Platelet 207 K/uL 130-400 04/15/2017 04/15/2017 Count 9:05am 9:18am Mean 9.7 fL 7.0-11.0 04/15/2017 04/15/2017 Platelet 9:05am 9:18am Volume Neutrophils 69.7 % 42.0-75.0 04/15/2017 04/15/2017 (%) (Auto) 9:05am 9:18am Lymphocytes 21.2 % 16.0-44.0 04/15/2017 04/15/2017 (%) (Auto) 9:05am 9:18am Monocytes 7.3 % 2.0-9.0 04/15/2017 04/15/2017 (%) (Auto) 9:05am 9:18am Eosinophils 1.2 % 0-7.0 04/15/2017 04/15/2017 (%) (Auto) 9:05am 9:18am Basophils 0.3 % 0-1 04/15/2017 04/15/2017 (%) (Auto) 9:05am 9:18am Immature 0.3 % 0-0.5 04/15/2017 04/15/2017 Granulocyte 9:05am 9:18am % (Auto) Nucleated 0.0 /100WBC 0-0 04/15/2017 04/15/2017 Red Blood 9:05am 9:18am Cells % Neutrophils 4.5 K/uL 1.9-8.0 04/15/2017 04/15/2017 # (Auto) 9:05am 9:18am Lymphocytes 1.4 K/uL 0.9-5.2 04/15/2017 04/15/2017 # (Auto) 9:05am 9:18am Monocytes # 0.5 K/uL 0.16-1.0 04/15/2017 04/15/2017 (Auto) 9:05am 9:18am Eosinophils 0.1 K/uL 0-0.8 04/15/2017 04/15/2017 # (Auto) 9:05am 9:18am Basophils # 0.0 K/uL 0-0.2 04/15/2017 04/15/2017 (Auto) 9:05am 9:18am Immature 0.02 K/uL 0-0.40 04/15/2017 04/15/2017 Granulocyte 9:05am 9:18am # (Auto) Nucleated 0.00 K/uL 0.0-0.012 04/15/2017 04/15/2017 Red Blood 9:05am 9:18am Cells # Prothrombin 12.8 SECONDS H 9.0-12.0 04/15/2017 04/15/2017 Time 9:05am 9:21am Prothromb 1.17 L 2.0-3.0 04/15/2017 04/15/2017 Time THERAPEUTIC 9:05am 9:21am Internation al Ratio D-Dimer < 150 ng/mL 0-230 04/15/2017 04/15/2017 Results <230 ng/ mL yeild a negative
Quantitativ 9:05am 10:10am predictability for DVT or PE e (PE/DVT) Random 103 mg/dL 65-115 04/15/2017 04/15/2017 Glucose 9:05am 9:29am Blood Urea 13 mg/dL 8-25 04/15/2017 04/15/2017 Nitrogen 9:05am 9:29am Creatinine 0.69 mg/dL L 0.9-1.6 04/15/2017 04/15/2017 9:05am 9:29am Glomerular 81.86 mL/min 04/15/2017 04/15/2017 MULTIPLY RESULT BY 1.210 IF THE PATIENT IS -[place]IZ[place]
Filtration 9:05am 9:29am Units are mL/min/1.73 m2
Rate Calc
> 60 Normal kidney function
30-59 Moderately decreased kidney function
15-29 Severely decreased kidney function
<15 End-stage kidney failure
BUN/Creatin 18.8 04/15/2017 04/15/2017 ine Ratio 9:05am 9:29am Sodium 136 mEq/L 133-145 04/15/2017 04/15/2017 Level 9:05am 9:29am Potassium 3.8 mEq/L 3.5-5.1 04/15/2017 04/15/2017 Level 9:05am 9:29am Chloride 100 mEq/L 98-116 04/15/2017 04/15/2017 Level 9:05am 9:29am Carbon 31 mEq/L 22-34 04/15/2017 04/15/2017 Dioxide 9:05am 9:29am Level Anion Gap 8.8 6-13 04/15/2017 04/15/2017 9:05am 9:29am Calcium 8.8 mg/dL 8.2-10.6 04/15/2017 04/15/2017 Level 9:05am 9:29am Total 7.3 gm/dL 6.0-8.4 04/15/2017 04/15/2017 Protein 9:05am 9:29am Albumin 4.1 gm/dL 3.2-5.0 04/15/2017 04/15/2017 9:05am 9:29am Globulin 3.2 gm/dL H 2.0-3.0 04/15/2017 04/15/2017 9:05am 9:29am Albumin/Jenny 1.3 L 1.4-2.4 04/15/2017 04/15/2017 bulin Ratio 9:05am 9:29am Total 1.2 mg/dL 0.1-1.3 04/15/2017 04/15/2017 Bilirubin 9:05am 9:29am Alkaline 63 U/L 35-125 04/15/2017 04/15/2017 Phosphatase 9:05am 9:29am Aspartate 18 U/L 5-40 04/15/2017 04/15/2017 Amino 9:05am 9:29am Transf (AST/SGOT) Alanine 11 U/L 5-40 04/15/2017 04/15/2017 Aminotransf 9:05am 9:29am erase (ALT/SGPT) Troponin I 0.01 ng/mL 0.0-0.02 04/15/2017 04/15/2017 9:05am 9:32am Lipase 22 U/L 8-57 04/15/2017 04/15/2017 9:05am 9:29am Microbiology Results Procedure Source Organism/Result Collection Result Result Date/Time Date/Time Status Blood Culture Blood No growth. 10/23/2015 10/24/2015 Final 6:49pm 6:54am Urine Culture Urine,Clean >100,000 CFU/ML 01/03/2017 01/05/2017 Final Catch MIXED BODY SUSAN 7:18pm 8:57am AFTER 2 DAYS Procedures No known history of procedures. Encounters Encounter Location Arrival/Admit Date Discharge/Depart Date Attending Provider Departed [facility] 04/15/17 9:00am 04/15/17 10:28am LONNIE BISHOP M.D. Emergency Room [facility] Departed [facility] 03/03/17 1:40pm 03/03/17 3:00pm MAZIN Emergency Room [facility] MADELINE Champion D.O. Office Visit LENO MIRANDA 02/16/17 2:30pm LENO MIRANDA M.D. Registered Leno Miranda 02/16/17 2:30pm LENO MIRANDA M.D. Registered [facility] 02/16/17 2:04pm LENO MIRANDA [facility] Walker Benjamin Office Visit LENO MIRANDA 01/06/17 3:30pm LENO MIRANDA M.D. Departed [facility] 01/03/17 6:46pm 01/03/17 8:40pm LONNIE BISHOP M.D. Emergency Room [facility] Registered [facility] 12/02/16 1:49pm LEDYLENO BRANDON [facility] Pedro Cardoso M.D. Office Visit LENO MIRANDA 12/02/16 1:30pm LENO MIRANDA M.D. Registered [facility] 07/29/16 2:47pm LEDYLENO BRANDON [facility] Walker Benjamin Office Visit LENO MIRANDA 07/29/16 2:30pm LENO MIRANDA M.D. Departed [facility] 06/26/16 7:22pm 06/26/16 9:43pm LANDEN GANT Emergency Room [facility] Eliezer Benjamin Departed [facility] 05/07/16 9:50pm 05/07/16 11:45pm LANDEN GANT Emergency Room [facility] Florencio.D. Office Visit LENO MIRANDA 04/30/16 10:45am SHRAVAN WHELAN M.D. Office Visit LNEO MIRANDA 04/22/16 3:15pm LENO MIRANDA M.D. Discharged [facility] 04/05/16 8:20am 04/07/16 10:20am LENO MIRANDA Inpatient [facility] Walker Benjamin Registered [facility] Small 02/03/16 1:54pm OTHER, DOCTOR Referred [facility] Discharged [facility] Small 10/23/15 7:58pm 11/04/15 12:20pm SCOTTIE SADLER Inpatient [facility] Pedro LITTLE Registered [facility] 02/06/15 3:15pm LENO MIRANDA [facility] Walker Benjamin Office Visit LENO MIRANDA 02/06/15 3:00pm LENO MIRANDA M.D. Recent Diagnosis
--- OUTSIDE RECORDS SUMMARY | 2018-04-28 05:02 | External Medical Summary | Continuity of Care Document ---
:1935 Author Organization [facility] Phone Unavailable Care Team Providers Name Role Phone LENO MIRANDA M.D. Primary Care Physician Insurance Providers Guarantor Suki Bennett Address [address] [place] [address] Payer s Medicare Policy Number [id number] Subscriber's Name Suki Bennett Relationship 01 Self / Same As Patient Effective Date 09 Chief Complaint and Reason for Visit Chief Complaint Chest Pain Reason for Visit Nonspecific chest pain Peripheral edema Problems Active Problems Medical Problem Onset Date Status Anemia Unknown Acute Bradycardia Unknown Resolved CHR 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 COPD (chronic obstructive pulmonary disease) 09/30/2011 Acute COPD exacerbation Unknown Acute Encounter for long-term (current) use [...] Acute Past Problems Medical Problem Onset Date Nonspecific chest pain Unknown Peripheral edema Unknown Medications Current Home Medications Medication Dose Units Route Directions Days Qty Instructions Start Date Albuterol 1 Mapped 05/07/16 Sulfate To Inh, (Proventil Do Not Use Hfa) Hfa Aer Aspirin 81 Mg Oral Daily 10/24/15 (Aspir-81) 81 Mg Tab Digoxin 1 Tab Oral Daily 30 Tablet Take 1 tab po 02/13/16 (Lanoxin) every morning 0.125 Mg Tab Furosemide 40 2 Tab Oral Daily 60 Tablet 03/15/16 Mg Tab Metolazone 2.5 2.5 Mg Oral Daily 3 Tablet 03/29/16 Mg Tab Metoprolol 1 Tab Oral Daily 30 Tablet 02/13/16 Succinate (Toprol Xl) 50 Mg Tab Potassium 10 Meq Oral Twice A Day 60 Tablet 02/13/16 Chloride (K-Tabs) 10 Meq Tab Past Home Medications Medication Directions Ordered Status Digoxin (Lanoxin) 0.125 Mg Tab, 1 Daily [...] 09/16/11 Discontinued 5/500) Tab, 1 Tab Oral Metoprolol Succinate (Toprol [...] Discontinued 25 Mg Tab, 1 Tab Oral Potassium Bicarbonate Daily 01/19/13 Discontinued (K-Effervescent) [...] 25 Meq Oral Potassium Chloride (K-Tabs) 10 Twice A Day 02/09/16 Discontinued Meq Tab, 10 Meq Oral Potassium Chloride (K-Tabs) 10 Twice A Day 02/09/16 Discontinued Meq Tab, 10 Meq Oral Potassium Chloride (K-Tabs) 10 Twice A Day 10/24/15 Discontinued Meq Tab, 10 Meq Oral Potassium Chloride (Potassium [...] Applicable Not Applicable Smoking Status Former smoker 05/07/2016 10:06pm Not Applicable Not Applicable Query Response Start Date Stop Date Smoking Status Former smoker Hospital Discharge Instructions No hospital discharge instructions. Plan of Care Discharge Date 05/07/16 11:45pm Disposition 01 HOME, SELF-CARE Condition at Discharge Stable Instructions/Education Provided Chest Pain (ED) Leg Edema (ED) Prescriptions See Medication Section Referrals LENO MIRANDA M.D. Address: [address] [place] [id number] Additional Instructions/Education no signs of heart or lung problems were found tonite
make sure to see your doctor in followup this week Functional Status No functional status results. Allergies, Adverse Reactions, Alerts Allergen Type Severity Reaction Status Last Updated Cephalosporins Allergy Unknown Active 10/27/15 Sulfonylureas Allergy Unknown Active 10/23/14 Sulfones Allergy Unknown Active 10/23/14 Immunizations Immunization Event Date Type Not Given Dose Number Lot Number Label Paster Reason Tetanus, 08/31/10 Administered 1 Diphtheria Vaccine Vital Signs Acute Vital Signs Vital Response Date/Time Blood Pressure 107/58 mm Hg 05/07/2016 11:19pm Blood Pressure Mean 74 mm Hg 05/07/2016 11:19pm Temperature (Fahrenheit) 98.3 degrees F (96.0 - 99.9) 05/07/2016 9:50pm Temperature (Calculated Celsius) 36.21732 degrees C 05/07/2016 9:50pm Temperature Source Oral 04/07/2016 8:45am Temperature Source Oral 05/07/2016 9:50pm Pulse Pulse Rate (adult) 94 bpm (60 - 100) 04/07/2016 9:15am Pulse Rate: ED 74 bpm 05/07/2016 11:19pm Apical Pulse Rate 85 bpm (60 - 90) 04/07/2016 8:47am Pulse Pulse Rate (adult) 94 bpm (60 - 100) 04/07/2016 9:15am Respiratory Rate 18 breaths per minute (10 - 20) 05/07/2016 11:19pm Height (Feet) 5 ft 05/07/2016 9:50pm Height (Inches) 2.0 in. 05/07/2016 9:50pm Weight (Pounds) 139.0 lbs 05/07/2016 9:50pm Height 5 ft 2 in 05/07/2016 9:50pm Weight 139 lb 05/07/2016 9:50pm Body Mass Index 25.4 kg/m^2 05/07/2016 9:50pm Ambulatory Vital Signs Vital Response Date/Time Height 5 ft 1 in 04/30/2016 10:45am Weight 130 lbs 04/30/2016 10:45am Blood Pressure 90/60 mm Hg 04/30/2016 10:45am Body Surface Area 1.60 m2 04/30/2016 10:45am Body Mass Index 24.6 kg/m2 04/30/2016 10:45am Pulse Oximetry Pulse Oximetry 04/30/2016 10:45am Results Laboratory Results Test Name Result Units Flags Reference Collection Result Comments Date/Time Date/Time White Blood 8.1 x10E3/uL 3.4-10.8 02/06/2015 02/07/2015 Count 3:40pm 5:11am Red Blood 4.62 x10E6/uL 3.77-5.28 02/06/2015 02/07/2015 Count 3:40pm 5:11am Hemoglobin 14.2 g/dL 11.1-15.9 02/06/2015 02/07/2015 3:40pm 5:11am Hematocrit 43.6 % 34.0-46.6 02/06/2015 02/07/2015 3:40pm 5:11am Mean 94 fL 79-97 02/06/2015 02/07/2015 Corpuscular 3:40pm 5:11am Volume Mean 30.7 pg 26.6-33.0 02/06/2015 02/07/2015 Corpuscular 3:40pm 5:11am Hemoglobin Mean 32.6 g/dL 31.5-35.7 02/06/2015 02/07/2015 Corpuscular 3:40pm 5:11am Hemoglobin Concent Red Cell 14.2 % 12.3-15.4 02/06/2015 02/07/2015 Distribution 3:40pm 5:11am Width Platelet 226 x10E3/uL 150-379 02/06/2015 02/07/2015 Count 3:40pm 5:11am Neutrophils % 73 % . 02/06/2015 02/07/2015 (Send Out) 3:40pm 5:11am Lymphocytes 19 % . 02/06/2015 02/07/2015 3:40pm 5:11am Monocytes 7 % . 02/06/2015 02/07/2015 3:40pm 5:11am Eosinophils 1 % . 02/06/2015 02/07/2015 3:40pm 5:11am Basophils 0 % . 02/06/2015 02/07/2015 3:40pm 5:11am Absolute 5.8 x10E3/uL 1.4-7.0 02/06/2015 02/07/2015 Neutrophils 3:40pm 5:11am (auto) Absolute 1.5 x10E3/uL 0.7-3.1 02/06/2015 02/07/2015 Lymphocytes 3:40pm 5:11am (auto) Absolute 0.5 x10E3/uL 0.1-0.9 02/06/2015 02/07/2015 Monocytes 3:40pm 5:11am (auto) Absolute 0.1 x10E3/uL 0.0-0.4 02/06/2015 02/07/2015 Eosinophils 3:40pm 5:11am (auto) Absolute 0.0 x10E3/uL 0.0-0.2 02/06/2015 02/07/2015 Basophils 3:40pm 5:11am (auto) Immature 0 % . 02/06/2015 02/07/2015 Granulocytes 3:40pm 5:11am Absolute 0.0 x10E3/uL 0.0-0.1 02/06/2015 02/07/2015 Performed at: [facility] - [facility]
Immature 3:40pm 5:11am [address] [address], [place], [place] [id number]
Granulocyte Mult Au Matic Operator: DIDI Cao MD, Phone: [phone]; (auto Glucose Level 93 mg/dL 65-99 02/06/2015 02/07/2015 3:40pm 9:11am Blood Urea 15 mg/dL 8-27 02/06/2015 02/07/2015 Nitrogen 3:40pm 9:11am Creatinine 0.93 mg/dL 0.57-1.00 02/06/2015 02/07/2015 3:40pm 9:11am BUN/Creatinin 16 11-26 02/06/2015 02/07/2015 e Ratio 3:40pm 9:11am Sodium Level 141 mmol/L 134-144 02/06/2015 02/07/2015 3:40pm 9:11am Potassium 4.3 mmol/L 3.5-5.2 02/06/2015 02/07/2015 Level 3:40pm 9:11am Chloride 95 mmol/L L 97-108 02/06/2015 02/07/2015 Level 3:40pm 9:11am Carbon 32 mmol/L H 18-29 02/06/2015 02/07/2015 Dioxide Level 3:40pm 9:11am Calcium Level 9.1 mg/dL 8.7-10.3 02/06/2015 02/07/2015 3:40pm 9:11am Serum Total 7.2 g/dL 6.0-8.5 02/06/2015 02/07/2015 Protein 3:40pm 9:11am Albumin 4.4 g/dL 3.5-4.8 02/06/2015 02/07/2015 3:40pm 9:11am Globulin 2.8 g/dL 1.5-4.5 02/06/2015 02/07/2015 3:40pm 9:11am Albumin/Globu 1.6 1.1-2.5 02/06/2015 02/07/2015 angelito Ratio 3:40pm 9:11am Total 0.6 mg/dL 0.0-1.2 02/06/2015 02/07/2015 Bilirubin 3:40pm 9:11am Alkaline 69 IU/L 39-117 02/06/2015 02/07/2015 Phosphatase 3:40pm 9:11am Aspartate 14 IU/L 0-40 02/06/2015 02/07/2015 Amino Transf 3:40pm 9:11am (AST/SGOT) Alanine 9 IU/L 0-32 02/06/2015 02/07/2015 Performed at[facility]
Aminotransfer 3:40pm 9:11am [address] [phone]
ase Mult Au Matic Operator: DIDI Cao MD, Phone: [phone]
(ALT/SGPT) EGFR IF 59 L >59 02/06/2015 02/07/2015 Result Units: NONAFRICN AM 3:40pm 9:11am mL/min/1.73&#13 ;
EGFR IF 68 >59 02/06/2015 02/07/2015 Result Units: AFRICN AM 3:40pm 9:11am mL/min/1.73&#13 ;
Immature 2.7 % L 3.0-15.9 10/26/2015 10/26/2015 Platelet 6:00am 7:06am Fraction Prothrombin 16.9 SECONDS H 9.0-12.0 10/23/2015 10/23/2015 Time 6:10pm 6:43pm Prothromb 1.54 L 2.0-3.0 10/23/2015 10/23/2015 Time 6:10pm 6:43pm International Ratio Activated 28.5 SECONDS 24.0-37.0 10/23/2015 10/23/2015 Partial 6:10pm 6:43pm Thromboplast Time D-Dimer 2487 ng/mL <230 10/25/2015 10/25/2015 CRITICAL RESULT VERIFIED AND CALLED TO MARGARET AT 1148 BY Quantitative 9:50am 11:48am [id number].
(PE/DVT) Results <230 ng/mL yeild a negative
predictability for DVT or PE Urine Color YELLOW 10/25/2015 10/25/2015 10:51am 11:04am Urine CLOUDY 10/25/2015 10/25/2015 Appearance 10:51am 11:04am Urine Glucose TRACE NEGATIVE 10/25/2015 10/25/2015 (UA) 10:51am 11:04am Urine 1+ NEGATIVE 10/25/2015 10/25/2015 Bilirubin 10:51am 11:04am Urine Ketones TRACE NEGATIVE 10/25/2015 10/25/2015 10:51am 11:04am Urine 1.025 1.005-1.03 10/25/2015 10/25/2015 Specific 0 10:51am 11:04am Wayne Urine Occult 1+ H NEGATIVE 10/25/2015 10/25/2015 Blood 10:51am 11:04am Urine pH 6.0 4.5-8.0 10/25/2015 10/25/2015 10:51am 11:04am Urine Protein 3+ H NEGATIVE 10/25/2015 10/25/2015 10:51am 11:04am Urine 4.0 E.U./dL 0.2-1.0 10/25/2015 10/25/2015 Urobilinogen 10:51am 11:04am Urine Nitrate NEGATIVE NEGATIVE 10/25/2015 10/25/2015 10:51am 11:04am Urine NEGATIVE NEGATIVE 10/25/2015 10/25/2015 Leukocyte 10:51am 11:04am Esterase Urine RBC 5-10 /hpf H NONE 10/25/2015 10/25/2015 10:51am 11:21am Urine WBC 50-75 /hpf H NONE 10/25/2015 10/25/2015 THIS SPECIMEN MEETS MEDICAL STAFF CRITERIA
10:51am 11:21am FOR A URINE CULTURE. A CULTURE HAS BEEN SET. Urine WBC 0-1 /hpf NONE 10/25/2015 10/25/2015 Clumps 10:51am 11:21am Urine MANY /lpf 10/25/2015 10/25/2015 Epithelial 10:51am 11:21am Cells Urine 2+ /hpf H NONE 10/25/2015 10/25/2015 THIS SPECIMEN MEETS MEDICAL STAFF CRITERIA
Bacteria 10:51am 11:21am FOR A URINE CULTURE. A CULTURE HAS BEEN SET. Urine Casts 1-3 /lpf NONE 10/25/2015 10/25/2015 GRANULAR 10:51am 11:21am Urine Mucus 1+ /lpf NONE 10/25/2015 10/25/2015 10:51am 11:21am Urine 1+ 10/25/2015 10/25/2015 Amorphous 10:51am 11:21am Sediment Urine Other Trichomonas 10/25/2015 10/25/2015 10:51am 11:21am Bedside 167 mg/dL H 70-120 10/25/2015 10/25/2015 Notify Glucose 9:26am 9:51am Nurse
Amylase Level 57 U/L 16-108 10/23/2015 10/23/2015 6:49pm 7:18pm Lipase 27 U/L 8-57 10/23/2015 10/23/2015 6:49pm 7:18pm Total 93 U/L 10-180 10/26/2015 10/26/2015 Creatine 6:00am 7:00am Kinase Creatine 1.2 ng/mL # 0.0-6.0 10/26/2015 10/26/2015 Kinase MB 6:00am 7:19am Lactic Acid 2.3 mmol/L H 0.5-2.2 10/23/2015 10/23/2015 Level 6:49pm 7:18pm Digoxin Level < 0.1 ng/ml L 0.8-2.0 10/23/2015 10/23/2015 6:49pm 7:18pm Arterial 7.44 7.35-7.45 10/27/2015 10/27/2015 Blood pH 2:00pm 2:42pm Blood Gas 58 mmHg H 35-45 10/27/2015 10/27/2015 PCO2 2:00pm 2:42pm Blood Gas PO2 119 mmHg H 89-100 10/27/2015 10/27/2015 2:00pm 2:42pm Blood Gas 12.9 mEq/L 10/27/2015 10/27/2015 Base Excess 2:00pm 2:42pm Arterial 41.2 mM/L H 21-27 10/27/2015 10/27/2015 Blood Total 2:00pm 2:42pm CO2 Arterial 39.4 mEq/L H 2110/27/2015 10/27/2015 Blood HCO3 2:00pm 2:42pm MRSA MRSA NEGATIVE 04/04/2016 04/04/2016 Surveillance NEGATIVE 6:40pm 9:09pm Screen White Blood 7.2 K/uL 5.0-10.0 05/07/2016 05/07/2016 Count 10:15pm 10:24pm Red Blood 4.03 M/uL L 4.20-5.40 05/07/2016 05/07/2016 Count 10:15pm 10:24pm Hemoglobin 12.3 g/dL 12.0-16.0 05/07/2016 05/07/2016 10:15pm 10:24pm Hematocrit 37.9 % L 38.0-47.0 05/07/2016 05/07/2016 10:15pm 10:24pm Mean 94.0 fL 82.0-100.0 05/07/2016 05/07/2016 Corpuscular 10:15pm 10:24pm Volume Mean 30.5 pg 26.0-33.0 05/07/2016 05/07/2016 Corpuscular 10:15pm 10:24pm Hemoglobin Mean 32.5 g/dL 31.0-36.0 05/07/2016 05/07/2016 Corpuscular 10:15pm 10:24pm Hemoglobin Concent Red Cell 14.5 % 11.5-14.5 05/07/2016 05/07/2016 Distribution 10:15pm 10:24pm Width RDW Standard 49.8 fL H 36.4-46.3 05/07/2016 05/07/2016 Deviation 10:15pm 10:24pm Platelet 192 K/uL 130-400 05/07/2016 05/07/2016 Count 10:15pm 10:24pm Mean Platelet 9.1 fL 7.0-11.0 05/07/2016 05/07/2016 Volume 10:15pm 10:24pm Neutrophils 61.8 % 42.0-75.0 05/07/2016 05/07/2016 (%) (Auto) 10:15pm 10:24pm Lymphocytes 26.5 % 16.0-44.0 05/07/2016 05/07/2016 (%) (Auto) 10:15pm 10:24pm Monocytes (%) 10.0 % H 2.0-9.0 05/07/2016 05/07/2016 (Auto) 10:15pm 10:24pm Eosinophils 0.8 % 0-7.0 05/07/2016 05/07/2016 (%) (Auto) 10:15pm 10:24pm Basophils (%) 0.3 % 0-1 05/07/2016 05/07/2016 (Auto) 10:15pm 10:24pm Immature 0.6 % H 0-0.5 05/07/2016 05/07/2016 Granulocyte % 10:15pm 10:24pm (Auto) Nucleated Red 0.0 /100WBC 0-0 05/07/2016 05/07/2016 Blood Cells % 10:15pm 10:24pm Neutrophils # 4.5 K/uL 1.9-8.0 05/07/2016 05/07/2016 (Auto) 10:15pm 10:24pm Lymphocytes # 1.9 K/uL 0.9-5.2 05/07/2016 05/07/2016 (Auto) 10:15pm 10:24pm Monocytes # 0.7 K/uL 0.16-1.0 05/07/2016 05/07/2016 (Auto) 10:15pm 10:24pm Eosinophils # 0.1 K/uL 0-0.8 05/07/2016 05/07/2016 (Auto) 10:15pm 10:24pm Basophils # 0.0 K/uL 0-0.2 05/07/2016 05/07/2016 (Auto) 10:15pm 10:24pm Immature 0.04 K/uL 0-0.40 05/07/2016 05/07/2016 Granulocyte # 10:15pm 10:24pm (Auto) Nucleated Red 0.00 K/uL 0.0-0.012 05/07/2016 05/07/2016 Blood Cells # 10:15pm 10:24pm Random 111 mg/dL 65-115 05/07/2016 05/07/2016 Glucose 10:15pm 10:39pm Blood Urea 25 mg/dL 8-25 05/07/2016 05/07/2016 Nitrogen 10:15pm 10:39pm Creatinine 0.69 mg/dL L 0.9-1.6 05/07/2016 05/07/2016 10:15pm 10:39pm Glomerular 82.07 mL/min 05/07/2016 05/07/2016 MULTIPLY RESULT BY 1.210 IF THE PATIENT IS -[place]
Filtration 10:15pm 10:39pm Units are mL/min/1.73 m2
Rate Calc
> 60 Normal kidney function
30-59 Moderately decreased kidney function
15-29 Severely decreased kidney function
<15 End-stage kidney failure
BUN/Creatinin 36.2 05/07/2016 05/07/2016 e Ratio 10:15pm 10:39pm Sodium Level 140 mEq/L 133-145 05/07/2016 05/07/2016 10:15pm 10:39pm Potassium 3.8 mEq/L 3.5-5.1 05/07/2016 05/07/2016 Level 10:15pm 10:39pm Chloride 96 mEq/L L 98-116 05/07/2016 05/07/2016 Level 10:15pm 10:39pm Carbon 33 mEq/L 22-34 05/07/2016 05/07/2016 Dioxide Level 10:15pm 10:39pm Anion Gap 14.8 H 6-13 05/07/2016 05/07/2016 10:15pm 10:39pm Calcium Level 8.9 mg/dL 8.2-10.6 05/07/2016 05/07/2016 10:15pm 10:39pm Total Protein 6.6 gm/dL 6.0-8.4 05/07/2016 05/07/2016 10:15pm 10:39pm Albumin 3.6 gm/dL 3.2-5.0 05/07/2016 05/07/2016 10:15pm 10:39pm Globulin 3.0 gm/dL 2.0-3.0 05/07/2016 05/07/2016 10:15pm 10:39pm Albumin/Globu 1.2 L 1.4-2.4 05/07/2016 05/07/2016 angelito Ratio 10:15pm 10:39pm Total 0.5 mg/dL 0.1-1.3 05/07/2016 05/07/2016 Bilirubin 10:15pm 10:39pm Alkaline 60 U/L 35-125 05/07/2016 05/07/2016 Phosphatase 10:15pm 10:39pm Aspartate 15 U/L 5-40 05/07/2016 05/07/2016 Amino Transf 10:15pm 10:39pm (AST/SGOT) Alanine 10 U/L 5-40 05/07/2016 05/07/2016 Aminotransfer 10:15pm 10:39pm ase (ALT/SGPT) Troponin I 0.02 ng/mL 0.0-0.02 05/07/2016 05/07/2016 10:15pm 10:44pm B-Type 148 pg/mL H 15-100 05/07/2016 05/07/2016 Natriuretic 10:15pm 10:54pm Peptide Microbiology Results Procedure Source Organism/Result Collection Result Result Date/Time Date/Time Status Blood Culture Blood No growth. 10/23/2015 10/24/2015 Final 6:49pm 6:54am Urine Culture Urine,Clean NO GROWTH AFTER 2 10/25/2015 10/27/2015 Final Catch DAYS 10:51am 10:44am Procedures Procedure Status Date Provider(s) INSERTION OF ENDOTRACHEAL AIRWAY INTO TRACHEA, Completed 10/25/15 IRAJ LÓPEZ M.D. VIA OPENING Encounters Encounter Location Arrival/Admit Date Discharge/Depart Date Attending Provider Departed [facility] 05/07/16 9:50pm 05/07/16 11:45pm LANDEN GANT Emergency Room [facility] Sourav Office Visit LENO MIRANDA 04/30/16 10:45am SHRAVAN WHELAN M.D. Registered Leno Miranda 04/30/16 10:45am LENO MIRANDA M.D. Office Visit LENO MIRANDA 04/22/16 3:15pm LENO MIRANDA M.D. Discharged [facility] 04/05/16 8:20am 04/07/16 10:20am LENO MIRANDA Inpatient [facility] Walker Benjamin Registered [facility] 02/03/16 1:54pm OTHER, DOCTOR Referred [facility] Discharged [facility]ser[facility] Small 10/23/15 7:58pm 12/15/15 12:20pm SCOTTIE SADLER Inpatient [facility] Pedro LITTLE Registered [facility] 02/06/15 3:15pm LENO MIRANDA [facility] Pedro Cardoso M.D. Office Visit LENO MIRANDA 02/06/15 3:00pm LENO MIRANDA M.D. Office Visit LENO MIRANDA 10/08/13 11:00am LENO MIRANDA M.D. Departed [facility] 09/03/13 12:12am 09/03/13 1:52am LANDEN GANT Emergency Room [facility] Eliezer Benjamin Recent Diagnosis
--- OUTSIDE RECORDS SUMMARY | 2018-04-28 05:03 | External Medical Summary | Continuity of Care Document ---
:1935 Author Organization [facility] [employer] Phone Unavailable Care Team Providers Name Role Phone LENO MIRANDA M.D. Unavailable Insurance Providers Guarantor Suki Bennett Address [id number] [place] [address] Payer [employer] Medicare Policy Number [id number] Subscriber's Name Suki Bennett Relationship 01 Self / Same As Patient Effective Date 09 Chief Complaint and Reason for Visit Chief Complaint Syncope Reason for Visit Weakness Hypoxia Peripheral edema Problems Active Problems Medical Problem [...] Directions Days Qty Instructions Start Date Albuterol 2 Puffs Inhalation Every 4 Hours 1 Each Sulfate As Needed for 6 (Proair Hfa) Dyspnea/Wheez 108 Mcg/Act e Aer Albuterol 1 Mapped To Sulfate Inh, Do Not 6 (Proventil Use Hfa) Hfa Aer Aspirin 81 Mg Oral Daily (Aspir-81) 81 5 Mg Tab Digoxin 1 Tab Oral Daily 30 Tablet Take 1 tab po (Lanoxin) every morning 6 0.125 Mg Tab Furosemide 40 2 Tab Oral Daily 65 Tablet TAKE 2 IN THE Mg Tab AM AND 1 IN 6 THE AFTERNOON FOR 5 DAYS, THEN BACK TO 2 IN THE AM. Metolazone 2.5 Mg Oral Daily 3 Tablet 2.5 Mg Tab 6 Metoprolol 1 Tab Oral Daily 30 Tablet Succinate 6 (Toprol Xl) 50 Mg Tab Potassium 10 Meq Oral Twice A Day 65 Tablet TAKE TID FOR 5 Chloride DAYS, THEN 6 (K-Tabs) 10 BACK TO BID Meq Tab Prednisone 10 10 Mg Oral As Directed 30 Tablet Prednisone Mg Tab for Copd Taper 40 mg po 6 daily x 3 days then 30 mg po daily x 3 days then 20 mg po daily x 3 days then 10 mg po daily x 3 days then stop Past Home Medications Medication Directions Ordered Status [...] Potassium Chloride (K-Tabs) 10 Twice A Day 02/13/16 Discontinued Meq Tab, 10 Meq Oral Potassium [...] Applicable Not Applicable Smoking Status Former smoker 06/26/2016 7:29pm Not Applicable Not Applicable Query Response Start Date Stop Date Smoking Status Former smoker Hospital Discharge Instructions No hospital discharge instructions. Plan of Care Discharge Date 06/26/16 9:43pm Disposition 01 HOME, SELF-CARE Condition at Discharge Stable Instructions/Education Provided Instructions from visit on: 04/22/16 Continue current medications.Reassess here in 3 months. Plan at least a BMP at that time. Prescriptions See Medication Section Referrals LENO MIRANDA M.D. Address: [address] [place], [place] [address], [place] [address] Additional Instructions/Education RETURN FOR ANY CONCERNS OR WORSENING &# 10;
USE YOUR OXYGEN ALL THE TIME AND SPEAK TO YOUR DOCTOR ABOUT AN OXYGEN HUMIDIFIER TO HELP WITH THE DRYING OUT OF YOUR NASAL PASSAGES Functional Status No functional status results. Allergies, Adverse Reactions, Alerts Allergen Type Severity Reaction Status Last Updated Cephalosporins ([id number]) Allergy Unknown Active 10/27/15 Sulfonylureas ([id number]) Allergy Unknown Active 10/23/14 Sulfones ([id number]) Allergy Unknown Active 10/23/14 Immunizations Immunization Event Date Type Not Given Dose Number Lot Number Truant Officer Reason Tetanus, 08/31/10 Administered 1 Diphtheria Vaccine Vital Signs Acute Vital Signs Vital Response Date/Time Blood Pressure 135/68 mm Hg 06/26/2016 9:32pm Blood Pressure Mean 90 mm Hg 06/26/2016 9:32pm Temperature (Fahrenheit) 97.9 degrees F (96.0 - 99.9) 06/26/2016 7:25pm Temperature (Calculated Celsius) 36.39116 degrees C 06/26/2016 7:25pm Temperature Source Oral 04/07/2016 8:45am Temperature Source Oral 06/26/2016 7:25pm Pulse Pulse Rate (adult) 72 bpm (60 - 100) 06/26/2016 7:47pm Pulse Rate: ED 80 bpm 06/26/2016 9:32pm Apical Pulse Rate 85 bpm (60 - 90) 04/07/2016 8:47am Respiratory Rate 18 breaths per minute (10 - 20) 05/07/2016 11:19pm Height (Feet) 5 ft 06/26/2016 7:25pm Height (Inches) 2.0 in. 06/26/2016 7:25pm Weight (Pounds) 135.0 lbs 06/26/2016 7:25pm Height 5 ft 2 in 06/26/2016 7:25pm Weight 135 lb 06/26/2016 7:25pm Body Mass Index 24.7 kg/m^2 06/26/2016 7:25pm Ambulatory Vital Signs Vital Response Date/Time Height [...] 02/06/2015 02/07/2015 Performed at: DA - [facility] [place]
Immature 3:40pm 5:11am [address] [place] [address], [place], [place] [id number]
[employer] Inventory Clerk: DIDI Cao MD, Phone: [phone] &# 10; (auto Glucose Level 93 mg/dL 65-99 02/06/2015 02/07/2015 3:40pm 9:11am Blood Urea 15 mg/dL 8-27 02/06/2015 02/07/2015 Nitrogen 3:40pm 9:11am Creatinine 0.93 mg/dL 0.57-1.00 02/06/2015 02/07/2015 3:40pm 9:11am BUN/Creatinin 16 11-02/06/2015 02/07/2015 e Ratio 3:40pm 9:11am Sodium Level [...] 9 IU/L 0-32 02/06/2015 02/07/2015 [facility]
Aminotransfer 3:40pm 9:11am [address] [address], [place], [place] [phone]
ase Warehouse Inventory Clerk: DIDI Cao MD, Phone: [phone]
(ALT/SGPT) EGFR IF 59 L >59 02/06/2015 [...] MARGARET AT 1148 BY Quantitative 9:50am 11:48am [id number].
(PE/DVT) Results <230 ng/mL yeild a negative
predictability for DVT or PE Urine WBC 0-1 /hpf NONE 10/25/2015 10/25/2015 Clumps 10:51am 11:21am Urine Casts 1-3 /lpf NONE 10/25/2015 10/25/2015 [...] Excess 2:00pm 2:42pm Arterial 41.2 mM/L H 2110/27/2015 10/27/2015 Blood Total 2:00pm 2:42pm CO2 Arterial 39.4 mEq/L H 10/27/2015 10/27/2015 Blood HCO3 2:00pm 2:42pm MRSA MRSA NEGATIVE 04/04/2016 04/04/2016 Surveillance NEGATIVE 6:40pm 9:09pm Screen White Blood 7.9 K/uL 5.0-10.0 06/26/2016 06/26/2016 Count 7:35pm 7:54pm Red Blood 4.36 M/uL 4.20-5.40 06/26/2016 06/26/2016 Count 7:35pm 7:54pm Hemoglobin 13.3 g/dL 12.0-16.0 06/26/2016 06/26/2016 7:35pm 7:54pm Hematocrit 41.8 % 38.0-47.0 06/26/2016 06/26/2016 7:35pm 7:54pm Mean 95.9 fL 82.0-100.0 06/26/2016 06/26/2016 Corpuscular 7:35pm 7:54pm Volume Mean 30.5 pg 26.0-33.0 06/26/2016 06/26/2016 Corpuscular 7:35pm 7:54pm Hemoglobin Mean 31.8 g/dL 31.0-36.0 06/26/2016 06/26/2016 Corpuscular 7:35pm 7:54pm Hemoglobin Concent Red Cell 14.0 % 11.5-14.5 06/26/2016 06/26/2016 Distribution 7:35pm 7:54pm Width RDW Standard 49.1 fL H 36.4-46.3 06/26/2016 06/26/2016 Deviation 7:35pm 7:54pm Platelet 195 K/uL 130-400 06/26/2016 06/26/2016 Count 7:35pm 7:54pm Mean Platelet 9.9 fL 7.0-11.0 06/26/2016 06/26/2016 Volume 7:35pm 7:54pm Neutrophils 75.2 % H 42.0-75.0 06/26/2016 06/26/2016 (%) (Auto) 7:35pm 7:54pm Lymphocytes 16.6 % 16.0-44.0 06/26/2016 06/26/2016 (%) (Auto) 7:35pm 7:54pm Monocytes (%) 6.6 % 2.0-9.0 06/26/2016 06/26/2016 (Auto) 7:35pm 7:54pm Eosinophils 0.9 % 0-7.0 06/26/2016 06/26/2016 (%) (Auto) 7:35pm 7:54pm Basophils (%) 0.3 % 0-1 06/26/2016 06/26/2016 (Auto) 7:35pm 7:54pm Immature 0.4 % 0-0.5 06/26/2016 06/26/2016 Granulocyte % 7:35pm 7:54pm (Auto) Nucleated Red 0.0 /100WBC 0-0 06/26/2016 06/26/2016 Blood Cells % 7:35pm 7:54pm Neutrophils # 5.9 K/uL 1.9-8.0 06/26/2016 06/26/2016 (Auto) 7:35pm 7:54pm Lymphocytes # 1.3 K/uL 0.9-5.2 06/26/2016 06/26/2016 (Auto) 7:35pm 7:54pm Monocytes # 0.5 K/uL 0.16-1.0 06/26/2016 06/26/2016 (Auto) 7:35pm 7:54pm Eosinophils # 0.1 K/uL 0-0.8 06/26/2016 06/26/2016 (Auto) 7:35pm 7:54pm Basophils # 0.0 K/uL 0-0.2 06/26/2016 06/26/2016 (Auto) 7:35pm 7:54pm Immature 0.03 K/uL 0-0.40 06/26/2016 06/26/2016 Granulocyte # 7:35pm 7:54pm (Auto) Nucleated Red 0.00 K/uL 0.0-0.012 06/26/2016 06/26/2016 Blood Cells # 7:35pm 7:54pm Urine Color YELLOW 06/26/2016 06/26/2016 8:14pm 8:23pm Urine CLEAR 06/26/2016 06/26/2016 Appearance 8:14pm 8:23pm Urine Glucose NEGATIVE NEGATIVE 06/26/2016 06/26/2016 (UA) 8:14pm 8:23pm Urine NEGATIVE NEGATIVE 06/26/2016 06/26/2016 Bilirubin 8:14pm 8:23pm Urine Ketones NEGATIVE NEGATIVE 06/26/2016 06/26/2016 8:14pm 8:23pm Urine 1.015 1.005-1.03 06/26/2016 06/26/2016 Specific 0 8:14pm 8:23pm [place] Urine Occult TRACE-INTACT NEGATIVE 06/26/2016 06/26/2016 Blood 8:14pm 8:23pm Urine pH 7.0 4.5-8.0 06/26/2016 06/26/2016 8:14pm 8:23pm Urine Protein NEGATIVE NEGATIVE 06/26/2016 06/26/2016 8:14pm 8:23pm Urine 0.2 E.U./dL 0.2-1.0 06/26/2016 06/26/2016 Urobilinogen 8:14pm 8:23pm Urine Nitrate NEGATIVE NEGATIVE 06/26/2016 06/26/2016 8:14pm 8:23pm Urine NEGATIVE NEGATIVE 06/26/2016 06/26/2016 Leukocyte 8:14pm 8:23pm Esterase Urine RBC 0-1 /hpf NONE 06/26/2016 06/26/2016 8:14pm 8:31pm Urine WBC 1-3 /hpf NONE 06/26/2016 06/26/2016 8:14pm 8:31pm Urine MODERATE /lpf 06/26/2016 06/26/2016 Epithelial 8:14pm 8:31pm Cells Urine TRACE /hpf H NONE 06/26/2016 06/26/2016 Bacteria 8:14pm 8:31pm Random 159 mg/dL H 65-115 06/26/2016 06/26/2016 Glucose 7:35pm 8:10pm Blood Urea 13 mg/dL 8-25 06/26/2016 06/26/2016 Nitrogen 7:35pm 8:10pm Creatinine 0.70 mg/dL L 0.9-1.6 06/26/2016 06/26/2016 7:35pm 8:10pm Glomerular 80.51 mL/min 06/26/2016 06/26/2016 MULTIPLY RESULT BY 1.210 IF THE PATIENT IS -DOMINICAN
Filtration 7:35pm 8:10pm Units are mL/min/1.73 m2
Rate Calc
> 60 Normal kidney function
30-59 Moderately decreased kidney function
15-29 Severely decreased kidney function
<15 End-stage kidney failure
BUN/Creatinin 18.6 06/26/2016 06/26/2016 e Ratio 7:35pm 8:10pm Sodium Level 140 mEq/L 133-145 06/26/2016 06/26/2016 7:35pm 8:10pm Potassium 4.0 mEq/L 3.5-5.1 06/26/2016 06/26/2016 Level 7:35pm 8:10pm Chloride 99 mEq/L 98-116 06/26/2016 06/26/2016 Level 7:35pm 8:10pm Carbon 34 mEq/L 22-34 06/26/2016 06/26/2016 Dioxide Level 7:35pm 8:10pm Anion Gap 11.0 6-13 06/26/2016 06/26/2016 7:35pm 8:10pm Calcium Level 8.8 mg/dL 8.2-10.6 06/26/2016 06/26/2016 7:35pm 8:10pm Total Protein 7.3 gm/dL 6.0-8.4 06/26/2016 06/26/2016 7:35pm 8:10pm Albumin 3.8 gm/dL 3.2-5.0 06/26/2016 06/26/2016 7:35pm 8:10pm Globulin 3.5 gm/dL H 2.0-3.0 06/26/2016 06/26/2016 7:35pm 8:10pm Albumin/Globu 1.1 L 1.4-2.4 06/26/2016 06/26/2016 angelito Ratio 7:35pm 8:10pm Total 0.6 mg/dL 0.1-1.3 06/26/2016 06/26/2016 Bilirubin 7:35pm 8:10pm Alkaline 58 U/L 35-125 06/26/2016 06/26/2016 Phosphatase 7:35pm 8:10pm Aspartate 21 U/L 5-40 06/26/2016 06/26/2016 Amino Transf 7:35pm 8:10pm (AST/SGOT) Alanine 10 U/L 5-40 06/26/2016 06/26/2016 Aminotransfer 7:35pm 8:10pm ase (ALT/SGPT) Troponin I 0.01 ng/mL 0.0-0.02 06/26/2016 06/26/2016 7:35pm 8:10pm Digoxin Level 0.7 ng/ml L 0.8-2.0 06/26/2016 06/26/2016 7:35pm 8:41pm B-Type 200 pg/mL H 15-100 06/26/2016 06/26/2016 Natriuretic 7:35pm 8:25pm Peptide Microbiology Results Procedure Source Organism/Result Collection Result Result Date/Time Date/Time Status Blood Culture Blood No growth. 10/23/2015 10/24/2015 Final 6:49pm 6:54am Urine Culture Urine,Clean NO GROWTH AFTER 2 10/25/2015 10/27/2015 Final Catch DAYS 10:51am 10:44am Procedures No known history of procedures. Encounters Encounter Location Arrival/Admit Date Discharge/Depart Date Attending Provider Departed [facility] 06/26/16 7:22pm 06/26/16 9:43pm LANDEN GANT Emergency Room [facility] Eliezer Benjamin Departed [facility] 05/07/16 9:50pm 05/07/16 11:45pm LANDEN GANT Emergency Room [facility] Eliezer Benjamin Office Visit LENO MIRANDA 04/30/16 10:45am SHRAVAN WHELAN M.D. Registered [facility] Miranda 04/30/16 10:45am LENO MIRANDA M.D. Office Visit LENO MIRANDA 04/22/16 3:15pm LENO MIRANDA M.D. Discharged [facility] 04/05/16 8:20am 04/07/16 10:20am LENO MIRANDA [place] [facility] [place]. Registered [facility] 02/03/16 1:54pm OTHER, DOCTOR Referred [facility] Hospital Discharged [facility] 10/23/15 7:58pm 11/04/15 12:20pm SCOTTIE SADLER Inpatient [facility] MD Registered [facility] 02/06/15 3:15pm LENO MIRANDA [facility] Walker Benjamin Office Visit LENO MIRANDA 02/06/15 3:00pm LENO MIRANDA M.D. Office Visit LENO MIRANDA 10/08/13 11:00am LENO MIRANDA M.D. Recent Diagnosis
--- OUTSIDE RECORDS SUMMARY | 2018-04-28 05:03 | External Medical Summary | Continuity of Care Document ---
:1935 Author Organization [facility] [employer] Phone Unavailable Care Team Providers Name Role Phone LENO MIRANDA M.D. Unavailable Insurance Providers Guarantor Suki Bennett Address [address] [place] [phone] Payer [employer] Medicare Policy Number [id number] Subscriber's Name Suki Bennett Relationship 01 Self / Same As Patient Effective Date 09 Chief Complaint and Reason for Visit Chief Complaint Fall Reason for Visit Dementia [id number] Problems Active Problems Medical Problem Onset Date Status Anemia Unknown Acute Bradycardia Unknown Resolved [facility]R 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 COPD (chronic obstructive pulmonary disease) 09/30/2011 Acute COPD exacerbation Unknown Acute Dementia Unknown Acute Encounter for long-term (current) use of other medications Unknown Acute Hypotension Unknown Acute Hypotension Unknown Acute Hypoventilation Unknown Acute Hypoxia Unknown Acute Low back pain Unknown Acute Lumbar strain Unknown Acute Minor head injury Unknown Acute Pedal edema Unknown Acute Pneumonia Unknown Acute Pneumonia Unknown Acute Pulmonary HTN Unknown Chronic Respiratory failure, acute Unknown Acute UTI (urinary tract infection) Unknown Acute Urinary tract infection Unknown Acute Past Problems Medical Problem Onset Date Bronchitis Unknown Chest pain Unknown Leg edema Unknown Nonspecific chest pain [...] Applicable Not Applicable Smoking Status Former smoker 04/17/2017 4:59pm Not Applicable Not Applicable Query Response Start Date Stop Date Smoking Status Former smoker Hospital Discharge Instructions No hospital discharge instructions. Plan of Care Discharge Date 04/17/17 6:24pm Disposition 01 HOME, SELF-CARE Condition at Discharge [...] Medication Section Referrals LENO MIRANDA M.D. Address: [address] [place] [phone] Additional Instructions/Education Patient's family was instructed to increase the patient's Lasix to 3 pills a day. Patient is to followup with PCP in 2-5 days. Patient should be weighed every day, with an attempt to lose a pound a day. Patient should continue her other medical regimen. Functional Status No functional status results. Allergies, Adverse Reactions, Alerts Allergen Type Severity Reaction Status Last Updated Cephalosporins ([id number]) Allergy Unknown Active 03/03/17 Sulfonylureas ([id number]) Allergy Unknown Active 03/03/17 Sulfones ([id number]) Allergy Unknown Active 03/03/17 Immunizations Immunization Event Date Type Not Given Dose Number Lot Number Waste Picker Reason Tetanus, 08/31/10 Administered 1 Diphtheria Vaccine Vital Signs Acute Vital Signs Vital Response Date/Time Blood Pressure 117/74 mm Hg 04/17/2017 5:00pm Blood Pressure Mean 88 mm Hg 04/17/2017 5:00pm Temperature (Fahrenheit) 97.9 degrees F (96.0 - 99.9) 04/17/2017 5:00pm Temperature (Calculated Celsius) 36.50912 degrees C 04/17/2017 5:00pm Temperature Source Oral 04/07/2016 8:45am Temperature Source Axillary 04/17/2017 6:22pm Pulse Pulse Rate (adult) 72 bpm (60 - 100) 06/26/2016 7:47pm Pulse Rate: ED 72 bpm 04/17/2017 6:22pm Apical Pulse Rate 85 bpm (60 - 90) 04/07/2016 8:47am Respiratory Rate 16 breaths per minute (10 - 20) 04/17/2017 6:22pm Height (Feet) 5 ft 04/17/2017 5:00pm Height (Inches) 2.0 in. 04/17/2017 5:00pm Weight (Pounds) 121.0 lbs 04/17/2017 5:00pm Height 5 ft 2 in 04/17/2017 5:00pm Weight 121 lb 04/17/2017 5:00pm Body Mass Index 22.1 kg/m^2 04/17/2017 5:00pm Ambulatory Vital Signs Vital Response Date/Time Height [...] Excess 2:00pm 2:42pm Arterial 41.2 mM/L H 2127 10/27/2015 10/27/2015 Blood Total 2:00pm 2:42pm CO2 [...] 24 mm/hr 0-40 12/02/2016 12/03/2016 Performed at: [facility]
on Rate, 2:05pm 7:11am [address] [place] [phone]
[place] Navigation Teacher: DIDI Cao MD, Phone: [phone] &# 10; C-Reactive 1.4 mg/L 0.0-4.9 12/02/2016 12/03/2016 Performed at: [facility]
Protein, 2:05pm 11:10am [address] [place] [phone]
Quantitativ Navigation Teacher: DIDI Cao MD, Phone: [phone] &# 10; e Serum Total 7.0 g/dL [...] 6 IU/L 0-32 12/02/2016 12/03/2016 Performed at: [facility]
Aminotransf 2:05pm 1:02pm [address] [place] [phone]
erase Navigation Teacher: DIDI Cao MD, Phone: [phone]
(ALT/SGPT) Urine 1.024 1.005-1.030 12/02/2016 12/03/2016 Specific 2:05pm 6:08am [place] Urine pH 6.0 5.0-7.5 12/02/2016 12/03/2016 2:05pm [...] was performed.
Microscopic 2:05pm 12:10pm Performed at: [facility] &# 10; Examination [address] [place] [phone]&#13 ;
(LAB Navigation Teacher: DIDI Cao MD, Phone: [phone]

Microscopic was indicated and was performed.

--- 12/03/16 1210 ---
MICROSCOPIC EX previously reported as:
See below:
Microscopic was indicated and was performed.
Performed at: [facility]
[address] [address], [place], [place] [id number]
Navigation Teacher: DIDI Cao MD, Phone: [phone]

Urine >30 /hpf H 0 - 5 [...] Urine Culture.
. 12/05/2016 REFLEX Performed at: [facility]
2:05pm 5:06pm [address] [place] [address] [address], [place], [place] [phone]
Navigation Teacher: DIDI Cao MD, Phone: [phone]

This specimen has reflexed to a Urine Culture.

--- 12/05/16 1706 ---
URINALYSIS REFL previously reported as:

This specimen has reflexed to a Urine Culture.
Performed at: [facility]
[address] [facility] [address], [place], [place] [id number]
Navigation Teacher: DIDI Cao MD, Phone: [phone]

Urine Final report H . 12/02/2016 12/05/2016 [...] S
Tobramycin S
Trimethoprim/Sulfa S
Performed at: [facility]
[address] [facility] [address], [place], [place] [id number]
Navigation Teacher: DIDI Cao MD, Phone: [phone]
B-Type 162 pg/mL H 15-100 01/03/2017 01/03/2017 Natriuretic 7:05pm 8:14pm Peptide Free 1.18 ng/dL 0.82-1.77 02/16/2017 02/17/2017 Thyroxine 2:15pm 8:14am (T4) Calculated Thyroid 5.670 uIU/mL H 0.450-4.500 02/16/2017 02/17/2017 Performed at: [facility] [place]
Stimulating 2:15pm 8:14am [address] [facility] [address], [place], [place] [id number]
Hormone Navigation Teacher: DIDI Cao MD, Phone: [phone]
(TSH) Glucose 99 mg/dL 65-99 02/16/2017 02/17/2017 Level 2:15pm 8:14am Blood Urea 19 mg/dL 8-27 02/16/2017 02/17/2017 Nitrogen 2:15pm 8:14am Creatinine 0.86 mg/dL 0.57-1.00 02/16/2017 02/17/2017 2:15pm 8:14am BUN/Creatin 22 11-02/16/2017 02/17/2017 Effective February 21, 2017 BUN/Creatinine Ratio
ine Ratio 2:15pm 8:14am reference interval will be changing to:&# 13;
Age Male Female
0 days - 7 days 9 - 25 9 - 26
8 days - 30 days 8 - [...] Units: AFRICN AM 2:15pm 8:14am mL/min/1.73&#1 3;
Prothrombin 12.8 SECONDS H 9.0-12.0 04/15/2017 04/15/2017 Time 9:05am 9:21am Prothromb 1.17 L 2.0-3.0 04/15/2017 04/15/2017 Time THERAPEUTIC 9:05am 9:21am Internation al Ratio D-Dimer < 150 ng/mL 0-230 04/15/2017 04/15/2017 Results <230 ng/ mL yeild a negative
Quantitativ 9:05am 10:10am predictability for DVT or PE e (PE/DVT) Total 7.3 gm/dL 6.0-8.4 04/15/2017 04/15/2017 Protein [...] 22 U/L 8-57 04/15/2017 04/15/2017 9:05am 9:29am White Blood 6.5 K/uL 5.0-10.0 04/17/2017 04/17/2017 Count 5:20pm 5:32pm Red Blood 4.50 M/uL 4.20-5.40 04/17/2017 04/17/2017 Count 5:20pm 5:32pm Hemoglobin 13.5 g/dL 12.0-16.0 04/17/2017 04/17/2017 5:20pm 5:32pm Hematocrit 42.3 % 38.0-47.0 04/17/2017 04/17/2017 5:20pm 5:32pm Mean 94.0 fL 82.0-100.0 04/17/2017 04/17/2017 Corpuscular 5:20pm 5:32pm Volume Mean 30.0 pg 26.0-33.0 04/17/2017 04/17/2017 Corpuscular 5:20pm 5:32pm Hemoglobin Mean 31.9 g/dL 31.0-36.0 04/17/2017 04/17/2017 Corpuscular 5:20pm 5:32pm Hemoglobin Concent Red Cell 14.6 % H 11.5-14.5 04/17/2017 04/17/2017 Distributio 5:20pm 5:32pm n Width RDW 50.4 fL H 36.4-46.3 04/17/2017 04/17/2017 Standard 5:20pm 5:32pm Deviation Platelet 192 K/uL 130-400 04/17/2017 04/17/2017 Count 5:20pm 5:32pm Mean 9.7 fL 7.0-11.0 04/17/2017 04/17/2017 Platelet 5:20pm 5:32pm Volume Neutrophils 71.0 % 42.0-75.0 04/17/2017 04/17/2017 (%) (Auto) 5:20pm 5:32pm Lymphocytes 20.2 % 16.0-44.0 04/17/2017 04/17/2017 (%) (Auto) 5:20pm 5:32pm Monocytes 7.5 % 2.0-9.0 04/17/2017 04/17/2017 (%) (Auto) 5:20pm 5:32pm Eosinophils 0.5 % 0-7.0 04/17/2017 04/17/2017 (%) (Auto) 5:20pm 5:32pm Basophils 0.5 % 0-1 04/17/2017 04/17/2017 (%) (Auto) 5:20pm 5:32pm Immature 0.3 % 0-0.5 04/17/2017 04/17/2017 Granulocyte 5:20pm 5:32pm % (Auto) Nucleated 0.0 /100WBC 0-0 04/17/2017 04/17/2017 Red Blood 5:20pm 5:32pm Cells % Neutrophils 4.6 K/uL 1.9-8.0 04/17/2017 04/17/2017 # (Auto) 5:20pm 5:32pm Lymphocytes 1.3 K/uL 0.9-5.2 04/17/2017 04/17/2017 # (Auto) 5:20pm 5:32pm Monocytes # 0.5 K/uL 0.16-1.0 04/17/2017 04/17/2017 (Auto) 5:20pm 5:32pm Eosinophils 0.0 K/uL 0-0.8 04/17/2017 04/17/2017 # (Auto) 5:20pm 5:32pm Basophils # 0.0 K/uL 0-0.2 04/17/2017 04/17/2017 (Auto) 5:20pm 5:32pm Immature 0.02 K/uL 0-0.40 04/17/2017 04/17/2017 Granulocyte 5:20pm 5:32pm # (Auto) Nucleated 0.00 K/uL 0.0-0.012 04/17/2017 04/17/2017 Red Blood 5:20pm 5:32pm Cells # Urine Color YELLOW 04/17/2017 04/17/2017 5:10pm 5:42pm Urine CLOUDY 04/17/2017 04/17/2017 Appearance 5:10pm 5:42pm Urine NEGATIVE NEGATIVE 04/17/2017 04/17/2017 Glucose 5:10pm 5:42pm (UA) Urine 2+ NEGATIVE 04/17/2017 04/17/2017 Bilirubin 5:10pm 5:42pm Urine TRACE NEGATIVE 04/17/2017 04/17/2017 Ketones 5:10pm 5:42pm Urine >=1.030 1.005-1.030 04/17/2017 04/17/2017 Specific 5:10pm 5:42pm [place] Urine NEGATIVE NEGATIVE 04/17/2017 04/17/2017 Occult 5:10pm 5:42pm Blood Urine pH 5.5 4.5-8.0 04/17/2017 04/17/2017 5:10pm 5:42pm Urine TRACE NEGATIVE 04/17/2017 04/17/2017 Protein 5:10pm 5:42pm Urine 1.0 E.U./dL 0.2-1.0 04/17/2017 04/17/2017 Urobilinoge 5:10pm 5:42pm n Urine NEGATIVE NEGATIVE 04/17/2017 04/17/2017 Nitrate 5:10pm 5:42pm Urine NEGATIVE NEGATIVE 04/17/2017 04/17/2017 Leukocyte 5:10pm 5:42pm Ester[place] Urine RBC 1-3 /hpf H NONE 04/17/2017 04/17/2017 5:10pm 5:42pm Urine WBC 3-5 /hpf NONE 04/17/2017 04/17/2017 5:10pm 5:42pm Urine 75-100 /lpf 04/17/2017 04/17/2017 Epithelial 5:10pm 5:42pm Cells Urine 2+ /hpf H NONE 04/17/2017 04/17/2017 THIS SPECIMEN MEETS MEDICAL STAFF CRITERIA
Bacteria 5:10pm 5:42pm FOR A URINE CULTURE. A CULTURE HAS BEEN SET. Urine Mucus 2+ /lpf NONE 04/17/2017 04/17/2017 5:10pm 5:42pm Random 96 mg/dL 65-115 04/17/2017 04/17/2017 Glucose 5:20pm 5:44pm Blood Urea 14 mg/dL 8-25 04/17/2017 04/17/2017 Nitrogen 5:20pm 5:44pm Creatinine 0.84 mg/dL # L 0.9-1.6 04/17/2017 04/17/2017 5:20pm 5:44pm Glomerular 65.24 mL/min 04/17/2017 04/17/2017 MULTIPLY RESULT BY 1.210 IF THE PATIENT IS -PARAGUAYAN
Filtration 5:20pm 5:43pm Units are mL/min/1.73 m2
Rate Calc
> 60 Normal kidney function
30-59 Moderately decreased kidney function
15-29 Severely decreased kidney function
<15 End-stage kidney failure
BUN/Creatin 16.7 04/17/2017 04/17/2017 ine Ratio 5:20pm 5:44pm Sodium 141 mEq/L 133-145 04/17/2017 04/17/2017 Level 5:20pm 5:44pm Potassium 3.7 mEq/L 3.5-5.1 04/17/2017 04/17/2017 Level 5:20pm 5:44pm Chloride 102 mEq/L 98-116 04/17/2017 04/17/2017 Level 5:20pm 5:44pm Carbon 29 mEq/L 22-34 04/17/2017 04/17/2017 Dioxide 5:20pm 5:44pm Level Anion Gap 13.7 H 6-13 04/17/2017 04/17/2017 5:20pm 5:44pm Calcium 9.0 mg/dL 8.2-10.6 04/17/2017 04/17/2017 Level 5:20pm 5:44pm Microbiology Results Procedure Source Organism/Result Collection Result Result Date/Time Date/Time Status Blood Culture Blood No growth. 10/23/2015 10/24/2015 Final 6:49pm 6:54am Urine Culture Urine,Clean >100,000 CFU/ML 01/03/2017 01/05/2017 Final Catch MIXED BODY SUSAN 7:18pm 8:57am AFTER 2 DAYS Procedures No known history of procedures. Encounters Encounter Location Arrival/Admit Date Discharge/Depart Date Attending Provider Departed [facility] 04/17/17 4:58pm 04/17/17 6:24pm DIANE Emergency Room [facility] Jaycee Lacey Departed [facility] 04/15/17 9:00am 04/15/17 10:28am LONNIE BISHOP M.D. Emergency Room [facility] Departed [facility] 03/03/17 1:40pm 03/03/17 3:00pm CEFER[facility] Emergency Room [facility] ERRANDAL Champion D.O. Office Visit LENO MIRANDA 02/16/17 2:30pm LENO MIRANDA M.D. Registered [facility] Miranda 02/16/17 2:30pm LENO MIRANDA M.D. Registered [facility] 02/16/17 2:04pm [facility] LENO MIRANDA 01/06/17 3:30pm LENO MIRANDA M.D. Departed [facility] 01/03/17 6:46pm 01/03/17 8:40pm LONNIE BISHOP M.D. Emergency Room [facility] Registered [facility] 12/02/16 1:49pm [facility] LENO WILDTON 12/02/16 1:30pm LENO MIRANDA M.D. Registered [facility] 07/29/16 2:47pm LENO MIRANDA [facility] Walker Benjamin Office Visit LENO MIRANDA 07/29/16 2:30pm LENO MIRANDA M.D. Departed [facility] 06/26/16 7:22pm 06/26/16 9:43pm LANDEN GANT Emergency Room [facility] Eliezer Benjamin Departed [facility] 05/07/16 9:50pm 05/07/16 11:45pm LANDEN GANT Emergency Room [facility] Eliezer Benjamin Office Visit LENO MIRANDA 04/30/16 10:45am SHRAVAN WHELAN M.D. Office Visit LENO MIRANDA 04/22/16 3:15pm LENO MIRANDA M.D. Discharged [facility] 04/05/16 8:20am 04/07/16 10:20am LENO MIRANDA [facility] Pedro Cardoso M.D. Registered [facility] 02/03/16 1:54pm OTHER, DOCTOR Referred [facility]. Hospital Discharged [facility] 10/23/15 7:58pm 11/04/15 12:20pm SCOTTIE SADLER Inpatient [facility] Pedro LITTLE Registered [facility] 02/06/15 3:15pm LENO MIRANDA [facility] Walker Benjamin Office Visit LENO MIRANDA 02/06/15 3:00pm LENO MIRANDA M.D. Recent Diagnosis
--- OUTSIDE RECORDS SUMMARY | 2018-04-28 05:03 | External Medical Summary | Continuity of Care Document ---
:1935 Author Organization [facility] Phone Unavailable Care Team Providers Name Role Phone LENO MIRANDA M.D. Unavailable Insurance Providers Guarantor Suki Bennett Address [address] [place] [address] Payer [employer] Medicare Policy Number [id number] Subscriber's Name Suki Bennett Relationship 01 Self / Same As Patient Effective Date 09 Chief Complaint and Reason for Visit Chief Complaint Leg Swelling Reason for Visit Leg edema Problems Active Problems Medical Problem Onset [...] Acute Past Problems Medical Problem Onset Date Leg edema Unknown Nonspecific chest pain Unknown Peripheral edema Unknown Peripheral edema Unknown Weakness Unknown Medications Current Home Medications Medication Dose Units Route Directions Days Qty Instructions Start Date Albuterol 2 Puffs Inhalation Every 4 1 Each 06/26/ Sulfate (Proair Hours As 16 Hfa) 108 Mcg/Act Needed for Aer Dyspnea/Whee ze Aspirin 81 Mg Oral Daily 10/24/ (Aspir-81) 81 Mg 15 Tab Digoxin 0.125 Mg 1 Tablet Oral Daily 30 Tablet 12/09/ Tab 17 Furosemide 40 Mg 2 Tab Oral Daily 65 Tablet TAKE 2 IN THE 06/28/ Tab AM AND 1 IN 16 THE AFTERNOON FOR 5 DAYS, THEN BACK TO 2 IN THE AM. Levothyroxine 25 Mcg Oral Daily 30 Tablet 12/03/ Sodium 25 Mcg 17 Tab Metoprolol 1 Tab Oral Daily 30 Tablet 12/09/ Succinate 17 (Toprol Xl) 50 Mg Tab Nitrofurantoin 100 Mg Oral Twice A Day 14 12/06/ Monohyd Macro Capsule 17 (Macrobid) 100 Mg Cap Potassium 10 Meq Oral Twice A Day 65 Tablet TAKE TID FOR 5 06/18/ Chloride DAYS, THEN 16 (K-Tabs) 10 Meq BACK TO BID Tab Past Home Medications Medication Directions Ordered Status Albuterol Sulfate (Proventil Hfa) 05/07/16 Discontinued Hfa Aer, 1 Mapped To Inh, Do Not Use Ciprofloxacin Hcl (Cipro) 500 Mg Twice A [...] 09/16/11 Discontinued 5/500) Tab, 1 Tab Oral Metolazone 2.5 Mg Tab, 2.5 Mg Daily 03/29/16 Discontinued Oral Metoprolol Succinate (Toprol Xl) Daily 09/13/16 Discontinued [...] Applicable Not Applicable Smoking Status Former smoker 01/03/2017 6:51pm Not Applicable Not Applicable Query Response Start Date Stop Date Smoking Status Former smoker Hospital Discharge Instructions No hospital discharge instructions. Plan of Care Discharge Date 01/03/17 8:40pm Disposition 01 HOME, SELF-CARE Condition at Discharge Improved/Stable Instructions/Education Provided Instructions from visit on: 12/02/16 Lab and chest x-ray. If unremarkable plan CT brain.Discussed findings with patient and daughter. If this is from cerebrovascular disease expect slow progression.Patient continues to decline heart catheterization as previously recommended by pre coder. Daughter is aware of this.Reassess in one month. Prescriptions See Medication Section Referrals LENO MIRANDA M.D. Address: [address] [place] [id number] Additional Instructions/Education Please call Dr. Miranda tomorrow morning.&#13 ;
Elevate your legs.
Please call primary care doctor or return to emergency department immediately if difficulty of breathing, persistent/worsening chest pain, syncope, worsening edema, or anything concerning. Functional Status No functional status results. Allergies, Adverse Reactions, Alerts Allergen Type Severity Reaction Status Last Updated Cephalosporins ([id number]) Allergy Unknown Active 10/27/15 Sulfonylureas ([id number]) Allergy Unknown Active 10/23/14 Sulfones ([id number]) Allergy Unknown Active 10/23/14 Immunizations Immunization Event Date Type Not Given Dose Number Lot Number Department Chair Reason Tetanus, 08/31/10 Administered 1 Diphtheria Vaccine Vital Signs Acute Vital Signs Vital Response Date/Time Blood Pressure 112/66 mm Hg 01/03/2017 8:17pm Blood Pressure Mean 81 mm Hg 01/03/2017 8:17pm Temperature (Fahrenheit) 97.8 degrees F (96.0 - 99.9) 01/03/2017 6:47pm Temperature (Calculated Celsius) 36.84912 degrees C 01/03/2017 6:47pm Temperature Source Oral 04/07/2016 8:45am Temperature Source Oral 01/03/2017 6:47pm Pulse Pulse Rate (adult) 72 bpm (60 - 100) 06/26/2016 7:47pm Pulse Rate: ED 71 bpm 01/03/2017 8:17pm Apical Pulse Rate 85 bpm (60 - 90) 04/07/2016 8:47am Respiratory Rate 16 breaths per minute (10 - 20) 01/03/2017 8:17pm Height (Feet) 5 ft 01/03/2017 6:47pm Height (Inches) 2.0 in. 01/03/2017 6:47pm Weight (Pounds) 133.0 lbs 01/03/2017 6:47pm Height 5 ft 2 in 01/03/2017 6:47pm Weight 133 lb 01/03/2017 6:47pm Body Mass Index 24.3 kg/m^2 01/03/2017 6:47pm Ambulatory Vital Signs Vital Response Date/Time Height 5 ft 1 in 12/02/2016 1:33pm Weight 134 lbs 12/02/2016 1:33pm Blood Pressure, Sitting, Right Arm 110/60 mm Hg 12/02/2016 1:33pm Body Surface Area 1.63 m2 12/02/2016 1:33pm Body Mass Index 25.3 kg/m2 12/02/2016 1:33pm Pulse Oximetry Pulse Oximetry 12/02/2016 1:33pm Results Laboratory Results Test Name Result Units Flags Reference Collection Result Comments Date/Time Date/Time Immature 2.7 % L 3.0-15.9 10/26/2015 10/26/2015 Platelet 6:00am 7:06am Fraction Prothrombin 16.9 SECONDS H 9.0-12.0 10/23/2015 10/23/2015 Time 6:10pm 6:43pm Prothromb 1.54 L 2.0-3.0 10/23/2015 10/23/2015 Time 6:10pm 6:43pm Internationa l Ratio Activated 28.5 SECONDS 24.0-37.0 10/23/2015 10/23/2015 Partial 6:10pm 6:43pm Thromboplast Time D-Dimer 2487 ng/mL <230 10/25/2015 10/25/2015 CRITICAL RESULT VERIFIED AND CALLED TO MARGARET AT 1148 BY Quantitative 9:50am 11:48am [id number].
(PE/DVT) Results <230 ng/mL yeild a negative
predictability for DVT or PE Urine WBC 0-1 /hpf NONE 10/25/2015 10/25/2015 Clumps 10:51am 11:21am Urine Casts 1-3 GRANULAR /lpf NONE 10/25/2015 10/25/2015 10:51am 11:21am Urine 1+ 10/25/2015 10/25/2015 Amorphous 10:51am 11:21am Sediment Urine Other Trichomonas 10/25/2015 10/25/2015 10:51am 11:21am Bedside 167 mg/dL H 70-120 10/25/2015 10/25/2015 Notify Glucose 9:26am 9:51am Nurse
Amylase 57 U/L 16-108 10/23/2015 10/23/2015 Level 6:49pm 7:18pm Lipase 27 U/L 8-57 10/23/2015 [...] 2:00pm 2:42pm CO2 Arterial 39.4 mEq/L H 21-27 10/27/2015 10/27/2015 Blood HCO3 2:00pm 2:42pm MRSA MRSA NEGATIVE NEGATIVE 04/04/2016 04/04/2016 Surveillance 6:40pm 9:09pm Screen Digoxin 0.7 ng/ml L 0.8-2.0 06/26/2016 06/26/2016 Level 7:35pm 8:41pm Free 0.95 ng/dL 0.82-1.77 12/02/2016 12/03/2016 Thyroxine 2:05pm 8:08am (T4) Calculated Thyroid 8.480 uIU/mL H 0.450-4.50 12/02/2016 12/03/2016 Performed at: DA - [facility]
Stimulating 0 2:05pm 8:08am [address] [address], [place], [place] [id number]
Hormone Clerk Secretary: DIDI Cao MD, Phone: [phone]
(TSH) White Blood 7.1 x10E3/uL 3.4-10.8 12/02/2016 12/03/2016 [...] Red Cell 13.9 % 12.3-15.4 12/02/2016 12/03/2016 Distribution 2:05pm 6:08am Width Platelet 206 x10E3/uL 150-379 12/02/2016 12/03/2016 Count 2:05pm 6:08am Neutrophils 74 % . 12/02/2016 12/03/2016 % (Send Out) 2:05pm 6:08am Lymphocytes 19 % . 12/02/2016 12/03/2016 2:05pm [...] (auto) Immature 0 % . 12/02/2016 12/03/2016 Granulocytes 2:05pm 6:08am Absolute 0.0 x10E3/uL 0.0-0.1 12/02/2016 12/03/2016 Immature 2:05pm 6:08am Granulocyte (auto Sedimentatio 24 mm/hr 0-40 12/02/2016 12/03/2016 Performed at: [facility]
n Rate, 2:05pm 7:11am [address] [place] [phone]
[place] Clerk Secretary: DIDI Cao MD, Phone: [phone] &# 10; C-Reactive 1.4 mg/L 0.0-4.9 12/02/2016 12/03/2016 Performed at: [facility]
Protein, 2:05pm 11:10am [address] [place] [phone]
Quantitative Clerk Secretary: DIDI Cao MD, Phone: [phone] & #10; Glucose 85 mg/dL 65-99 12/02/2016 12/03/2016 Level 2:05pm 1:02pm Blood Urea 19 mg/dL 8-27 12/02/2016 12/03/2016 Nitrogen 2:05pm 1:02pm Creatinine 0.74 mg/dL 0.57-1.00 12/02/2016 12/03/2016 2:05pm 1:02pm BUN/Creatini 26 11-26 12/02/2016 12/03/2016 ne Ratio 2:05pm 1:02pm Sodium Level 144 mmol/L 134-144 12/02/2016 12/03/2016 2:05pm 1:02pm Potassium 4.1 mmol/L 3.5-5.2 12/02/2016 12/03/2016 Level 2:05pm 1:02pm Chloride 95 mmol/L L 96-106 12/02/2016 12/03/2016 Level 2:05pm 1:02pm Carbon 29 mmol/L 18-29 12/02/2016 12/03/2016 Dioxide 2:05pm 1:02pm Level Calcium 9.2 mg/dL 8.7-10.3 12/02/2016 12/03/2016 Level 2:05pm 1:02pm Serum Total 7.0 g/dL 6.0-8.5 12/02/2016 12/03/2016 Protein 2:05pm 1:02pm Albumin 4.5 g/dL 3.5-4.7 12/02/2016 12/03/2016 2:05pm 1:02pm Globulin 2.5 g/dL 1.5-4.5 12/02/2016 12/03/2016 2:05pm 1:02pm Albumin/Glob 1.8 1.1-2.5 12/02/2016 12/03/2016 ulin Ratio 2:05pm 1:02pm Total 0.5 mg/dL 0.0-1.2 12/02/2016 12/03/2016 Bilirubin 2:05pm 1:02pm Alkaline 69 IU/L 39-117 12/02/2016 12/03/2016 Phosphatase 2:05pm 1:02pm Aspartate 12 IU/L 0-40 12/02/2016 12/03/2016 Amino Transf 2:05pm 1:02pm (AST/SGOT) Alanine 6 IU/L 0-32 12/02/2016 12/03/2016 Performed at: DA - [facility]
Aminotransfe 2:05pm 1:02pm [address], [place], [place] [id number]
abel Clerk Secretary: DIDI Cao MD, Phone: [phone]
(ALT/SGPT) EGFR IF 77 >59 12/02/2016 12/03/2016 Result Units: NONAFRICN AM 2:05pm 1:02pm mL/min/1.73&#13 ;
EGFR IF 88 >59 12/02/2016 12/03/2016 Result Units: AFRICN AM 2:05pm 1:02pm mL/min/1.73&#13 ;
Urine 1.024 1.005-1.03 12/02/2016 12/03/2016 Specific 0 2:05pm 6:08am [place] Urine pH 6.0 5.0-7.5 12/02/2016 12/03/2016 2:05pm 6:08am Urine Color Yellow Yellow 12/02/2016 12/03/2016 2:05pm 6:08am Urine Cloudy H Clear 12/02/2016 12/03/2016 Appearance 2:05pm 6:08am Urine 2+ H Negative 12/02/2016 12/03/2016 Leukocyte 2:05pm 6:08am Esterase Urine Trace 12/02/2016 12/03/2016 Reference Protein 2:05pm 6:08am Range: Negative/Trace& #13;
Urine Negative Negative 12/02/2016 12/03/2016 Glucose 2:05pm 6:08am Urine Negative Negative 12/02/2016 12/03/2016 Ketones 2:05pm 6:08am Urine Occult 1+ H Negative 12/02/2016 12/03/2016 Blood 2:05pm 6:08am Urine Negative Negative 12/02/2016 12/03/2016 Bilirubin 2:05pm 6:08am Urine 0.2 mg/dL 0.2-1.0 12/02/2016 12/03/2016 Urobilinogen 2:05pm 6:08am Urine Positive H Negative 12/02/2016 12/03/2016 Nitrite 2:05pm 6:08am Direct See below: . 12/02/2016 12/03/2016 Microscopic was indicated and was performed.
Microscopic 2:05pm 12:10pm Performed at: [facility] &# 10; Examination [address] [place] [phone]&#13 ;
(LAB Clerk Secretary: DIDI Cao MD, Phone: [phone]

Microscopic was indicated and was performed.

--- 12/03/16 1210 ---
MICROSCOPIC EX previously reported as:
See below:
Microscopic was indicated and was performed.
Performed at: [facility]
[address] [place] [address], [place], [place] [id number]
Clerk Secretary: DIDI Cao MD, Phone: [phone]

Urine >30 /hpf H 0 - 5 [...] Urine Culture.
. 12/05/2016 REFLEX Performed at: [facility]
2:05pm 5:06pm [address] [place] [address], [place], [place] [phone]
Clerk Secretary: DIDI Cao MD, Phone: [phone]

This specimen has reflexed to a Urine Culture.

--- 12/05/16 1706 ---
URINALYSIS REFL previously reported as:

This specimen has reflexed to a Urine Culture.
Performed at: - [facility]
[address], [place], [place] [id number]
Clerk Secretary: DIDI Cao MD, Phone: [phone]

Urine Final report H . 12/02/2016 12/05/2016 Culture 2:05pm 5:06pm Reflexed Urine Escherichia coli, identified by an automated biochemical
. 12/02/2016 12/05/2016 Culture system.
2:05pm 5:06pm Result 1 Greater than 100,000 colony forming units per mL
Urine Cult S=Susceptible; I=Intermediate; R=Resistant
. 12/02/2016 12/05/2016 Antimic P=Positive; N=Negative
2:05pm 5: 06pm Susceptibili MICS are expressed in micrograms per mL
ty Antibiotic RSLT#1 RSLT#2 RSLT#3 RSLT#4 &#10 ; Amoxicillin/Clavulanic Acid I
Ampicillin R
Cefazolin R
Cefepime S
Ceftriaxone S
Cefuroxime I
Cephalothin R
Ciprofloxacin R
Ertapenem S
Gentamicin S
Imipenem S
Levofloxacin R
Nitrofurantoin S
Piperacillin R
Tetracycline S
Tobramycin S
Trimethoprim/Sulfa S
Performed at: DA - [facility]
[address] [address], [place], [place] [id number]
Clerk Secretary: DIDI Cao MD, Phone: [phone]
White Blood 6.5 K/uL 5.0-10.0 01/03/2017 01/03/2017 Count 7:05pm 7:15pm Red Blood 4.51 M/uL 4.20-5.40 01/03/2017 01/03/2017 Count 7:05pm 7:15pm Hemoglobin 13.8 g/dL 12.0-16.0 01/03/2017 01/03/2017 7:05pm 7:15pm Hematocrit 43.3 % 38.0-47.0 01/03/2017 01/03/2017 7:05pm 7:15pm Mean 96.0 fL 82.0-100.0 01/03/2017 01/03/2017 Corpuscular 7:05pm 7:15pm Volume Mean 30.6 pg 26.0-33.0 01/03/2017 01/03/2017 Corpuscular 7:05pm 7:15pm Hemoglobin Mean 31.9 g/dL 31.0-36.0 01/03/2017 01/03/2017 Corpuscular 7:05pm 7:15pm Hemoglobin Concent Red Cell 13.7 % 11.5-14.5 01/03/2017 01/03/2017 Distribution 7:05pm 7:15pm Width RDW Standard 48.7 fL H 36.4-46.3 01/03/2017 01/03/2017 Deviation 7:05pm 7:15pm Platelet 169 K/uL 130-400 01/03/2017 01/03/2017 Count 7:05pm 7:15pm Mean 9.7 fL 7.0-11.0 01/03/2017 01/03/2017 Platelet 7:05pm 7:15pm Volume Neutrophils 69.9 % 42.0-75.0 01/03/2017 01/03/2017 (%) (Auto) 7:05pm 7:15pm Lymphocytes 21.4 % 16.0-44.0 01/03/2017 01/03/2017 (%) (Auto) 7:05pm 7:15pm Monocytes 6.8 % 2.0-9.0 01/03/2017 01/03/2017 (%) (Auto) 7:05pm 7:15pm Eosinophils 0.9 % 0-7.0 01/03/2017 01/03/2017 (%) (Auto) 7:05pm 7:15pm Basophils 0.5 % 0-1 01/03/2017 01/03/2017 (%) (Auto) 7:05pm 7:15pm Immature 0.5 % 0-0.5 01/03/2017 01/03/2017 Granulocyte 7:05pm 7:15pm % (Auto) Nucleated 0.0 /100WBC 0-0 01/03/2017 01/03/2017 Red Blood 7:05pm 7:15pm Cells % Neutrophils 4.5 K/uL 1.9-8.0 01/03/2017 01/03/2017 # (Auto) 7:05pm 7:15pm Lymphocytes 1.4 K/uL 0.9-5.2 01/03/2017 01/03/2017 # (Auto) 7:05pm 7:15pm Monocytes # 0.4 K/uL 0.16-1.0 01/03/2017 01/03/2017 (Auto) 7:05pm 7:15pm Eosinophils 0.1 K/uL 0-0.8 01/03/2017 01/03/2017 # (Auto) 7:05pm 7:15pm Basophils # 0.0 K/uL 0-0.2 01/03/2017 01/03/2017 (Auto) 7:05pm 7:15pm Immature 0.03 K/uL 0-0.40 01/03/2017 01/03/2017 Granulocyte 7:05pm 7:15pm # (Auto) Nucleated 0.00 K/uL 0.0-0.012 01/03/2017 01/03/2017 Red Blood 7:05pm 7:15pm Cells # Urine Color YELLOW 01/03/2017 01/03/2017 7:18pm 7:39pm Urine SL CLOUDY 01/03/2017 01/03/2017 Appearance 7:18pm 7:39pm Urine NEGATIVE NEGATIVE 01/03/2017 01/03/2017 Glucose (UA) 7:18pm 7:39pm Urine NEGATIVE NEGATIVE 01/03/2017 01/03/2017 Bilirubin 7:18pm 7:39pm Urine NEGATIVE NEGATIVE 01/03/2017 01/03/2017 Ketones 7:18pm 7:39pm Urine 1.025 1.005-1.03 01/03/2017 01/03/2017 Specific 0 7:18pm 7:39pm [place] Urine Occult 1+ H NEGATIVE 01/03/2017 01/03/2017 Blood 7:18pm 7:39pm Urine pH 6.0 4.5-8.0 01/03/2017 01/03/2017 7:18pm 7:39pm Urine NEGATIVE NEGATIVE 01/03/2017 01/03/2017 Protein 7:18pm 7:39pm Urine 2.0 E.U./dL 0.2-1.0 01/03/2017 01/03/2017 Urobilinogen 7:18pm 7:39pm Urine NEGATIVE NEGATIVE 01/03/2017 01/03/2017 Nitrate 7:18pm [...] TRACE /lpf NONE 01/03/2017 01/03/2017 7:18pm 7:41pm Random 136 mg/dL H 65-115 01/03/2017 01/03/2017 Glucose 7:05pm 7:29pm Blood Urea 17 mg/dL 8-25 01/03/2017 01/03/2017 Nitrogen 7:05pm 7:29pm Creatinine 0.74 mg/dL L 0.9-1.6 01/03/2017 01/03/2017 7:05pm 7:29pm Glomerular 75.51 mL/min 01/03/2017 01/03/2017 MULTIPLY RESULT BY 1.210 IF THE PATIENT IS -MALIAN
Filtration 7:05pm 7:28pm Units are mL/min/1.73 m2
Rate Calc
> 60 Normal kidney function
30-59 Moderately decreased kidney function
15-29 Severely decreased kidney function
<15 End-stage kidney failure
BUN/Creatini 23.0 01/03/2017 01/03/2017 ne Ratio 7:05pm 7:29pm Sodium Level 137 mEq/L 133-145 01/03/2017 01/03/2017 7:05pm 7:29pm Potassium 3.6 mEq/L 3.5-5.1 01/03/2017 01/03/2017 Level 7:05pm 7:29pm Chloride 100 mEq/L 98-116 01/03/2017 01/03/2017 Level 7:05pm 7:29pm Carbon 34 mEq/L 22-34 01/03/2017 01/03/2017 Dioxide 7:05pm 7:29pm Level Anion Gap 6.6 601/03/2017 01/03/2017 7:05pm 7:29pm Calcium 8.5 mg/dL 8.2-10.6 01/03/2017 01/03/2017 Level 7:05pm 7:29pm Total 7.1 gm/dL 6.0-8.4 01/03/2017 01/03/2017 Protein 7:05pm 7:29pm Albumin 3.9 gm/dL 3.2-5.0 01/03/2017 01/03/2017 7:05pm 7:29pm Globulin 3.2 gm/dL H 2.0-3.0 01/03/2017 01/03/2017 7:05pm 7:29pm Albumin/Glob 1.2 L 1.4-2.4 01/03/2017 01/03/2017 ulin Ratio 7:05pm 7:29pm Total 0.7 mg/dL 0.1-1.3 01/03/2017 01/03/2017 Bilirubin 7:05pm 7:29pm Alkaline 62 U/L 35-125 01/03/2017 01/03/2017 Phosphatase 7:05pm 7:29pm Aspartate 14 U/L 5-40 01/03/2017 01/03/2017 Amino Transf 7:05pm 7:29pm (AST/SGOT) Alanine 11 U/L 5-40 01/03/2017 01/03/2017 Aminotransfe 7:05pm 7:29pm rase (ALT/SGPT) Troponin I 0.02 ng/mL 0.0-0.02 01/03/2017 01/03/2017 7:05pm 7:47pm B-Type 162 pg/mL H 15-100 01/03/2017 01/03/2017 Natriuretic 7:05pm 8:14pm Peptide Microbiology Results Procedure Source Organism/Result Collection Result Result Date/Time Date/Time Status Blood Culture Blood No growth. 10/23/2015 10/24/2015 Final 6:49pm 6:54am Urine Culture Urine,Clean NO GROWTH AFTER 2 10/25/2015 10/27/2015 Final Catch DAYS 10:51am 10:44am Procedures No known history of procedures. Encounters Encounter Location Arrival/Admit Date Discharge/Depart Date Attending Provider Departed [facility] 01/03/17 6:46pm 01/03/17 8:40pm LONNIE BISHOP M.D. Emergency Room [facility] Registered [facility] 12/02/16 1:49pm LENO MIRANDA [facility] Office Visit LENO MIRANDA 12/02/16 1:30pm LENO MIRANDA M.D. Registered [facility] 12/02/16 1:30pm LENO MIRANDA M.D. Registered [facility] 07/29/16 2:47pm LENO MIRANDA [facility] Office Visit LENO MIRANDA 07/29/16 2:30pm LENO MIRANDA M.D. Departed [facility] 06/26/16 7:22pm 06/26/16 9:43pm LANDEN GANT Emergency Room [facility]. [facility] Eliezer Benjamin Departed [facility] 05/07/16 9:50pm 05/07/16 11:45pm LANDEN GANT Emergency Room [facility] Pedro Martins M.D. Office Visit LENO MIRANDA 04/30/16 10:45am SHRAVAN WHELAN M.D. Office Visit LENO MIRANDA 04/22/16 3:15pm LENO MIRANDA M.D. Discharged [facility] 04/05/16 8:20am 04/07/16 10:20am LNEO MIRANDA Inpatient [facility] Pedro Cardoso M.D. Registered [facility] 02/03/16 1:54pm OTHER, DOCTOR Referred [facility]. Hospital Discharged [facility] 10/23/15 7:58pm 11/04/15 12:20pm SCOTTIE SADLER Inpatient [facility] Pedro LITTLE Registered [facility] 02/06/15 3:15pm LENO MIRANDA [facility] Office Visit LENO MIRANDA 02/06/15 3:00pm LENO MIRANDA M.D. Recent Diagnosis
--- OUTSIDE RECORDS SUMMARY | 2018-04-28 05:04 | External Medical Summary | Continuity of Care Document ---
:1935 Author Organization [facility] Care Team Providers Name Role Phone LENO MIRANDA M.D. Unavailable Unavailable Insurance Providers Payer Name Policy Number Subscriber Name Relationship s Medicare [id number] Suki Bennett 01 Self / Same As Patient Advance Directives Directive Response Recorded Date/Time Patient Resuscitation Status Full Code 04/04/16 7:41pm Advance Directives No 04/04/16 7:41pm Living Will No 04/04/16 7:41pm Health Care Power of Program Coordinator For Residence Life No 04/04/16 7:41pm Chief Complaint and Reason for Visit Chief Complaint fall Reason for Visit Bradycardia COPD exacerbation Pulmonary HTN Respiratory failure, acute UTI (urinary tract infection) Urinary tract infection Problems Active Problems Medical Problem Onset Date Status Anemia Unknown Acute Bradycardia Unknown Resolved [facility] 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 CONGESTIVE HEART FAILURE 09/30/2011 Acute COPD exacerbation Unknown Acute Encounter [...] Unknown Acute Urinary tract infection Unknown Acute Medications Current Home Medications Medication Dose Units Route Directions Days/Qty Instructions Start Date Aspirin 81 Mg 81 Mg Oral Daily 10/24/15 Metoprolol 1 Tab Oral Daily 30 02/13/16 Succinate 50 Mg Potassium 10 Meq Oral Twice A Day 60 02/13/16 Chloride 10 Meq Digoxin 0.125 1 Tab Oral Daily 30 Take 1 tab po 02/13/16 Mg every morning Furosemide 40 2 Tab Oral Daily 60 03/15/16 Mg Metolazone 2.5 2.5 Mg Oral Daily 3 03/29/16 Mg Albuterol 2.5 1 Un Inhalation Every 4 Hours 1 04/04/16 Mg/3 Ml as needed for Wheezing Prednisone 10 10 Mg Oral Tapered Dose 18 04/07/16 Mg for Not Specified Past Home Medications Medication Directions Ordered Status Potassium Bicarbonate 25 Meq Daily 07/13/10 Discontinued Tabef, 25 Meq Oral Digoxin 0.125 Mg Tab, 1 Tab Oral Daily 07/13/10 Discontinued Furosemide 20 Mg Tab, 1 Tab Oral Daily 07/13/10 Discontinued Metoprolol Succinate 25 Mg Tab, 1 Daily 07/13/10 Discontinued Tab Oral Potassium Bicarbonate 25 Meq Tab, Daily 06/11/11 Discontinued 25 Meq Oral Metoprolol Succinate 50 Mg Tab, Daily 06/11/11 Discontinued 50 Mg Oral Furosemide 20 Mg Tab, 1 Tab Oral Daily 08/03/11 Discontinued Digoxin 0.125 Mg Tab, 1 Tab Oral Daily 08/03/11 Discontinued Hydrocodone-Acetaminophen Tab, 1 Every 6 Hours As Needed 09/16/11 Discontinued Tab Oral Metoprolol Succinate 50 Mg Tab, Daily 12/06/11 Discontinued 50 Mg Oral Digoxin 0.125 Mg Tab, 1 Tab Oral Daily 12/06/11 Discontinued Furosemide 20 Mg Tab, 1 Tab Oral Daily 12/06/11 Discontinued Potassium Bicarbonate 25 Meq Tab, Daily 12/06/11 Discontinued 25 Meq Oral Metoprolol Succinate 50 Mg Tab, Daily 03/02/12 Discontinued 50 Mg Oral Potassium Bicarbonate 25 Meq Tab, Daily 03/10/12 Discontinued 25 Meq Oral Digoxin 0.125 Mg Tab, 1 Tab Oral Daily 03/10/12 Discontinued Furosemide 20 Mg Tab, 1 Tab Oral Daily 03/10/12 Discontinued Metoprolol Succinate 50 Mg Tab, Daily 05/09/12 Discontinued 50 Mg Oral Furosemide 20 Mg Tab, 1 Tab Oral Daily 06/05/12 Discontinued Potassium Bicarbonate 25 Meq Tab, Daily 06/05/12 Discontinued 25 Meq Oral Digoxin 0.125 Mg Tab, 1 Tab Oral Daily 06/05/12 Discontinued Metoprolol Succinate 50 Mg Tab, Daily 08/07/12 Discontinued 50 Mg Oral Digoxin 0.125 Mg Tab, 1 Tab Oral Daily 09/28/12 Discontinued Potassium Bicarbonate 25 Meq Tab, Daily 09/28/12 Discontinued 25 Meq Oral Furosemide 20 Mg Tab, 1 Tab Oral Daily 09/28/12 Discontinued Potassium Bicarbonate 25 Meq Tab, Daily 01/19/13 Discontinued 25 Meq Oral Digoxin 0.125 Mg Tab, 1 Tab Oral Daily 01/19/13 Discontinued Furosemide 20 Mg Tab, 1 Tab Oral Daily 01/19/13 Discontinued Metoprolol Succinate 50 Mg Tab, Daily 02/23/13 Discontinued 50 Mg Oral Potassium Chloride 10 Meq Tab, 10 Daily 06/01/13 Discontinued Meq Oral Furosemide 40 Mg Tab, 40 Mg Oral Daily 06/15/13 Discontinued Potassium Chloride 10 Meq Tab, 2 Daily 06/15/13 Discontinued Tab Oral Furosemide 40 Mg Tab, 2 Tab Oral Daily 07/03/13 Discontinued Potassium Chloride 10 Meq Tab, 2 Daily 07/05/13 Discontinued Tab Oral Digoxin 0.125 Mg Tab, 1 Tab Oral Daily 08/22/13 Discontinued Metoprolol Succinate 50 Mg Tab, Daily 08/22/13 Discontinued 50 Mg Oral Potassium Chloride 10 Meq Tab, 1 Daily 08/28/13 Discontinued Tab Oral Digoxin 0.125 Mg Tab, 1 Tab Oral Daily 08/28/13 Discontinued Furosemide 40 Mg Tab, 2 Tab Oral Daily 09/12/13 Discontinued Digoxin 0.125 Mg Tab, 1 Tab Oral Daily 10/01/13 Discontinued Potassium Chloride 10 Meq Tab, 1 Twice A Day 10/08/13 Discontinued Tab Oral Potassium Chloride 10 Meq Tab, 1 Twice A Day 12/12/13 Discontinued Tab Oral Furosemide 40 Mg Tab, 2 Tab Oral Daily 12/12/13 Discontinued Metoprolol Succinate 50 Mg Tab, Daily 02/04/14 Discontinued 50 Mg Oral Digoxin 0.125 Mg Tab, 1 Tab Oral Daily 03/13/14 Discontinued Metoprolol Succinate 50 Mg Tab, Daily 03/13/14 Discontinued 50 Mg Oral Furosemide 40 Mg Tab, 2 Tab Oral Twice A Day 06/18/14 Discontinued Potassium Chloride 10 Meq Tab, 1 Twice A Day 07/26/14 Discontinued Tab Oral Potassium Chloride 10 Meq Tab, 1 Twice A Day 08/26/14 Discontinued Tab Oral Furosemide 40 Mg Tab, 2 Tab Oral Daily 08/26/14 Discontinued Metoprolol Succinate 50 Mg Tab, 1 Daily 09/17/14 Discontinued Tab Oral Digoxin 0.125 Mg Tab, 1 Tab Oral Daily 09/17/14 Discontinued Digoxin 0.125 Mg Tab, 1 Tab Oral Daily 10/07/14 Discontinued Metoprolol Succinate 50 Mg Tab, 1 Daily 10/07/14 Discontinued Tab Oral Digoxin 0.125 Mg Tab, 1 Tab Oral Daily 11/13/14 Discontinued Metoprolol Succinate 50 Mg Tab, 1 Daily 11/13/14 Discontinued Tab Oral Digoxin 0.125 Mg Tab, 1 Tab Oral Daily 12/23/14 Discontinued Metoprolol Succinate 50 Mg Tab, 1 Daily 12/23/14 Discontinued Tab Oral Metoprolol Succinate 50 Mg Tab, 1 Daily 01/22/15 Discontinued Tab Oral Digoxin 0.125 Mg Tab, 1 Tab Oral Daily 01/22/15 Discontinued Potassium Chloride 10 Meq Tab, 1 Daily 02/06/15 Discontinued Tab Oral Furosemide 40 Mg Tab, 1 Tab Oral Daily 02/06/15 Discontinued Metoprolol Succinate 50 Mg Tab, 1 Daily 02/10/15 Discontinued Tab Oral Digoxin 0.125 Mg Tab, 1 Tab Oral Daily 02/10/15 Discontinued Furosemide 40 Mg Tab, 2 Tab Oral Daily 02/24/15 Discontinued Metoprolol Succinate 50 Mg Tab, 1 Daily 09/09/15 Discontinued Tab Oral Digoxin 0.125 Mg Tab, 1 Tab Oral Daily 09/09/15 Discontinued Digoxin 0.125 Mg Tab, 1 Tab Oral Daily 10/14/15 Discontinued Potassium Chloride 10 Meq Tab, 10 Twice A Day 10/24/15 Discontinued Meq Oral Potassium Chloride 10 Meq Tab, 10 Twice A Day 02/09/16 Discontinued Meq Oral Potassium Chloride 10 Meq Tab, 10 Twice A Day 02/09/16 Discontinued Meq Oral Digoxin 0.125 Mg Tab, 1 Tab Oral Daily 02/09/16 Discontinued Furosemide 40 Mg Tab, 2 Tab Oral Daily 02/13/16 Discontinued Prednisone 10 Mg Tab, 10 Mg Oral Twice A Day for Not Specified 04/07/16 Discontinued Prednisone 10 Mg Tab, 10 Mg Oral Daily for Not Specified 04/07/16 Discontinued Social History Social History Problem Response Recorded Date/Time Hx Alcohol Use No 04/04/2016 7:38pm Hx Smoking Exposure Yes 04/04/2016 7:38pm Smoking Status Former smoker 04/07/2016 9:22am Query Response Start Date Stop Date Smoking Status Former smoker Hospital Discharge Instructions Medication Information Medication information Medications taken today: TAKEN AT 8:47AM: DIGOXIN 0.125MG PREDNISONE 30MG K-DUR 10MEQ TOPROL XL 50MG LASIX 40MG ZAROXOLYN 2.5MG Discharge Instructions Nursing Instructions Physician Follow-up Appointment: Dr Miranda [phone] Call for Appointment: Yes Signs and Symptoms to notify your Doctor about:: Fever above 101 deg, Chest Pain , Shortness of Breath, Uncontrolled Pain, Reaction to Medication Diet: As Tolerated Activity: As Tolerated Heart Failure Discharge Instructions: Read food labels, Avoid high sodium foods, Do not add salt to food, Bring weight record to , Record weight daily, Weigh same time each day, Weigh with empty bladder, Report weight gains 2-3lb, No Smoking, Call Dr for appointment Pain Management Brochure given: Yes Plan of Care Discharge Date 04/07/16 10:20am Disposition 01 HOME, SELF-CARE Prescriptions See Medication Section Care Plan and Goals See Discharge Instructions Section Functional Status Query Response Date Recorded Overall Activities Daily Living Independ/No setup help April 04, 2016 7:43pm Ability/Staff Support Toileting Ability/Staff Support Independ/No setup help April 07, 2016 1:47am Oral Care Ability/Staff Support Independ/No setup help April 07, 2016 1:47am Upper Body Dressing Ability/Staff Activity did not occur April 07, 2016 1:47am Support Lower Body Dressing Ability/Staff Independ/No setup help April 07, 2016 1:47am Support Bed Mobility Sit to Supine Ability 6/7 Modified [place] April 06, 2016 10: 50am Bed Transfer Ability /7 Supervision/Set-up April 06, 2016 10:50am Toilet Transfer Ability /7 Supervision/Set-up April 06, 2016 10:50am Memory Description alf intact April 07, 2016 10:50am Short term impaired Cognitive Skills Modified independence April 06, 2016 11:03pm Making self understood Sometimes understood April 06, 2016 11:03pm Indicators of depression Sad,pained,worried facial April 07, 2016 10:50am Repetitve physical movmnt Allergies, Adverse Reactions, Alerts Allergen Type Severity Reaction Status Last Updated Cephalosporins Allergy Unknown Active 10/27/15 Sulfonylureas Allergy Unknown Active 10/23/14 Sulfones Allergy Unknown Active 10/23/14 Immunizations No immunization records. Vital Signs Acute Vital Signs Vital Response Date/Time Blood Pressure 116/71 mm Hg 04/06/2016 11:35pm Blood Pressure Mean 86 mm Hg 04/06/2016 11:35pm Temperature (Fahrenheit) 97.4 degrees F (96.0 - 99.9) 04/06/2016 11:35pm Temperature (Calculated Celsius) 36.78971 degrees C 04/06/2016 11:35pm Temperature Source Axillary 04/06/2016 11:35pm Temperature Source Oral 04/04/2016 11:39am Pulse Pulse Rate (adult) 94 bpm (60 - 100) 04/07/2016 9:15am Pulse Rate: ED 98 bpm 04/04/2016 6:01pm Apical Pulse Rate 85 bpm (60 - 90) 04/07/2016 8:47am Pulse Pulse Rate (adult) 94 bpm (60 - 100) 04/07/2016 9:15am Respiratory Rate 22 breaths per minute (10 - 20) 04/06/2016 11:35pm Height (Feet) 5 ft 04/04/2016 7:43pm Height (Inches) 2.0 in. 04/04/2016 7:43pm Weight (Pounds) 126.5 lbs 04/07/2016 4:02am Height 5 ft 2 in Weight 126 lb Body Mass Index 23.1 kg/m^2 Ambulatory Vital Signs Vital Response Date/Time Weight 130 lbs 02/06/2015 3:08pm Blood Pressure, Sitting, Left Arm 122/70 mm Hg 02/06/2015 3:08pm Pulse Oximetry Pulse Oximetry 02/06/2015 3:08pm Results Pending Laboratory Results Test Name Collection Date/Time Pending Microbiology Results Procedure Source Collection Date/Time Procedures No known history of procedures. Encounters Encounter Location Arrival/Admit Date Discharge/Depart Date Attending Provider Discharged [facility] 04/05/16 8:20am 04/07/16 10:20am LENO MIRANDA [place]patient [facility] [place] Cardoso M.D. Registered [facility] 02/03/16 1:54pm OTHER, DOCTOR Referred [facility] Discharged [facility] 10/23/15 7:58pm 11/04/15 12:20pm SCOTTIE SADLER Inpatient [facility] Registered [facility] 02/06/15 3:15pm LENO MIRANDA [facility] Pedro Cardoso M.D. Office Visit [facility] 02/06/15 3:00pm LENO MIRANDA M.D. Registered [facility] 02/06/15 3:00pm LENO MIRANDA M.D. Office Visit [facility] 10/08/13 11:00am LENO MIRANDA M.D. Departed [facility] 09/03/13 12:12am 09/03/13 1:52am LANDEN GANT Emergency Room [facility] Registered [facility] 08/02/13 7:00am SANDOVAL MELCHOR [facility] Office Visit LENO MIRANDA 07/25/13 11:30am LENO MIRANDA M.D. Recent Diagnosis Bradycardia COPD exacerbation Pulmonary HTN Respiratory failure, acute UTI (urinary tract infection) Urinary tract infection
--- OUTSIDE RECORDS SUMMARY | 2018-04-28 05:04 | External Medical Summary | Continuity of Care Document ---
:1935 Author Organization [employer] Phone Unavailable Care Team Providers Name Role Phone LENO VILLAFANA M.D. Primary Care Physician Insurance Providers Guarantor Suki Bennett Address [address] [place] [address] Payer [employer] Medicare Policy Number [id number] Subscriber's Name Suki Bennett Relationship 01 Self / Same As Patient Effective Date 09 Payer [facility] Policy Number [id number] Subscriber's Name Suki Bennett Relationship 01 Self / Same As Patient Advance Directives Directive Response Recorded Date/Time Patient Resuscitation Status Full Code 03/14/18 2:18pm Advance Directives No 03/14/18 2:18pm Living Will No 03/14/18 2:18pm Health Care Power of Water Treatment Specialist No 03/14/18 2:18pm Chief Complaint and Reason for Visit Chief Complaint FALL Reason for Visit Altered mental status Encounter for long-term (current) use of other medications Pedal edema Altered mental status Hypoxia Hypotension CHF exacerbation Pedal edema Hypotension Anemia Low back pain Hypoventilation CHR AIRWAY OBSTRUCT NEC Problems Medical Problem Onset Date Status Altered mental status Unknown Chronic Anemia Unknown Acute Bradycardia Unknown Resolved CHF exacerbation Unknown CHR 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 COPD (chronic obstructive pulmonary disease) 09/30/2011 Acute COPD exacerbation Unknown Acute Encounter for long-term (current) use of other medications Unknown Acute Hypotension Unknown Acute Hypotension Unknown Acute Hypoventilation Unknown Acute Hypoxia Unknown Acute Low back pain Unknown Acute Lumbar strain Unknown Acute Minor head injury Unknown Acute Pedal edema Unknown Resolved Pneumonia Unknown Acute Pneumonia Unknown Acute Pulmonary HTN Unknown Chronic Respiratory failure, acute Unknown Acute UTI (urinary tract infection) Unknown Acute Urinary tract infection Unknown Acute Past Problems Medical Problem Onset Date Status Acute CHF Unknown Acute Acute CHF Unknown Acute Bronchitis Unknown Acute Cellulitis of leg, right Unknown Acute Cellulitis of leg, right Unknown Acute Chest pain Unknown Acute Dementia Unknown Acute Dementia Unknown Acute Dementia Unknown Acute Fall Unknown Acute Fall Unknown Acute History of atrial fibrillation Unknown Acute History of atrial fibrillation Unknown Acute Leg edema Unknown Acute Nonspecific chest pain Unknown Acute Occipital scalp laceration Unknown Acute Pedal edema Unknown Acute Peripheral edema Unknown Acute Peripheral edema Unknown Acute Weakness Unknown Acute Medications Current Home Medications Medication Dose Units Route Directions Days Qty Instructions Start Date Acetaminophen 325 650 Mg Oral Every 4 Hours Mg Tab As Needed for General Discomfort Aspirin 81 Mg Oral Daily (Aspir-81) 81 Mg Tab Digoxin 0.125 Mg 1 Tablet Oral Daily 30 Tablet 12/09/16 Tab Furosemide 20 Mg 20 Mg Oral Daily for Heart Tab Failure, Chronic Ibuprofen 600 Mg 600 Mg Oral Every 4 Hours Tab As Needed for General Discomfort Levothyroxine 50 Mcg Oral Daily 30 Tablet 03/11/17 Sodium 50 Mcg Tab Magnesium 30 Ml Oral Daily As Needed Hydroxide (Milk for Of Magnesia 400 Constipation Mg/5ML) 1 Natacha Natacha Metoprolol 1 Tab Oral Daily 30 Tablet 12/09/16 Succinate (Toprol Xl) 50 Mg Tab Ondansetron 4 Mg Oral Every 4 Hours (Ondansetron Hcl) As Needed for 4 Mg Tab Nausea Potassium 20 Meq Oral Daily for Heart Chloride Failure, (Potassium Chronic Chloride Er) 20 Meq Tab Sertraline Hcl 25 25 Mg Oral Daily Mg Tab Past Home Medications Medication Directions Ordered Status Albuterol Sulfate (Proventil Hfa) Discontinued Hfa Aer, 1 Inhalation Ciprofloxacin Hcl [...] Digoxin (Lanoxin) 0.125 Mg Tab, 1 Daily Discontinued Tab Oral Furosemide 40 Mg Tab, 2 Tab Oral Daily 03/07/17 Discontinued Furosemide 40 Mg Tab, 2 Tab [...] (Lasix 40 Mg Po) 40 Mg Daily Discontinued Tab, 40 Mg Oral Furosemide (Lasix) [...] Furosemide (Lasix) 20 Mg Tab, 1 Daily Discontinued Tab Oral Hydrocodone-Acetaminophen (Lortab Every 6 Hours As Needed 09/16/11 Discontinued 5/500) Tab, 1 Tab Oral Levothyroxine Sodium 25 Mcg Tab, Daily 02/17/17 Discontinued 50 Mcg Oral Levothyroxine Sodium 25 Mcg Tab, Daily 12/03/16 Discontinued 25 Mcg Oral Lorazepam 0.5 Mg Tab, 0.5 Mg Oral Every 6 Hours As Needed as 04/26/17 Discontinued needed for Anxiety Metolazone 2.5 Mg Tab, 2.5 Mg Oral [...] Mg Oral Metoprolol Succinate (Toprol Xl) Daily Discontinued 25 Mg Tab, 1 Tab Oral [...] Tab, 25 Meq Oral Potassium Bicarbonate Daily Discontinued (Klor-Con/Ef) 25 Meq Tabef, 25 Meq Oral Potassium Chloride (K-Tabs) 10 Meq Twice A Day 01/27/17 Discontinued Tab, 10 Meq Oral Potassium Chloride [...] Chloride (K-Tabs) 10 Meq Twice A Day Discontinued Tab, 10 Meq Oral Potassium Chloride [...] Oral Twice A Day for Not Specified Discontinued Prednisone 10 Mg Tab, 10 Mg Oral Daily for Not Specified Discontinued Social History Social History Problem Response Recorded Date/Time Onset Date Status Hx Alcohol Use No 03/14/2018 1:51pm Not Applicable Not Applicable Hx Smoking Exposure No 03/14/2018 1:51pm Not Applicable Not Applicable Smoking Status Former smoker 03/14/2018 1:50pm Not Applicable Not Applicable Smoking Status Start Date Stop Date Former smoker Hospital Discharge Instructions No hospital discharge instruction information available. Plan of Care Discharge Date 03/15/18 11:52am Disposition [facility] ([facility]) Prescriptions See Medication Section Functional Status Query Response Date Recorded Overall Activities Daily Living Total/Two+ assist March 14, 2018 2:22pm Ability/Staff Support Memory Description Short term impaired March 15, 2018 7:45am terminal supervisor impaired Cognitive Skills Moderately impaired March 15, 2018 7:45am Making self understood Sometimes understood March 15, 2018 7:45am Indicators of depression Reduced social interactio March 15, 2018 7:45am Allergies, Adverse Reactions, Alerts Allergen Type Severity Reaction Status Last Updated Cephalosporins ([id number]) Allergy Unknown Active 03/03/17 Sulfonylureas ([id number]) Allergy Unknown Active 03/03/17 Sulfones ([id number]) Allergy Unknown Active 03/03/17 Immunizations Immunization Event Date Type Not Given Dose Number Lot Number Copra Processor Reason Tetanus, 08/31/10 Administered 1 Diphtheria Vaccine Query Response on File Recorded Date/Time Had a Tetanus Toxoid Vaccination less than 10yrs Y - 08/31/2010 03/14/18 2: 23pm ago Vital Signs Acute Vital Signs Vital Response Date/Time Blood Pressure 78/49 mm Hg 03/15/2018 8:31am Blood Pressure Mean 59 mm Hg 03/15/2018 8:31am Temperature (Fahrenheit) 97.6 degrees F (96.0 - 99.9) 03/15/2018 8:31am Temperature (Calculated Celsius) 36.43534 degrees C 03/15/2018 8:31am Temperature Source Oral 03/15/2018 8:31am Temperature Source Oral 03/14/2018 8:14am Pulse Pulse Rate (adult) 67 bpm (60 - 100) 03/15/2018 8:31am Pulse Rate: ED 97 bpm 03/14/2018 8:47am Apical Pulse Rate 75 bpm (60 - 90) 04/21/2017 9:04am Respiratory Rate 24 breaths per minute (10 - 20) 03/15/2018 8:31am Height (Feet) 5 ft 03/14/2018 1:20pm Height (Inches) 5.0 in. 03/14/2018 1:20pm Weight (Pounds) 134.7 lbs 03/15/2018 4:27am Height 5 ft 5 in 03/14/2018 1:20pm Weight 134.70 lb 03/15/2018 4:27am Body Mass Index 22.4 kg/m^2 03/15/2018 4:27am Ambulatory Vital Signs Vital Response Date/Time Height [...] 167 mg/dL H 70-120 10/25/2015 10/25/2015 Notify Nurse Glucose 9:26am 9:51am Amylase 57 U/L 16-108 10/23/2015 10/23/2015 Level 6:49pm 7:18pm Creatine 1.2 ng/mL # 0.0-6.0 10/26/2015 10/26/2015 Kinase MB 6:00am 7:19am Arterial 7.44 7.35-7.45 10/27/2015 10/27/2015 Blood pH 2:00pm 2:42pm Blood Gas 58 mmHg H 35-45 10/27/2015 10/27/2015 PCO2 2:00pm 2:42pm Blood Gas 119 mmHg H 89-100 10/27/2015 10/27/2015 PO2 2:00pm 2:42pm Blood Gas 12.9 mEq/L 10/27/2015 10/27/2015 Base Excess 2:00pm 2:42pm Arterial 41.2 mM/L H 10/27/2015 10/27/2015 Blood Total 2:00pm 2:42pm CO2 Arterial 39.4 mEq/L H 10/27/2015 10/27/2015 Blood HCO3 2:00pm 2:42pm White Blood 7.1 x10E3/uL 3.4-10.8 12/02/2016 12/03/2016 [...] 24 mm/hr 0-40 12/02/2016 12/03/2016 Performed at: [facility], 2:05pm 7:11am [address] [place] [id number] [place] Supervisor: DIDI Cao MD, Phone: [phone] C-Reactive 1.4 mg/L 0.0-4.9 12/02/2016 12/03/2016 Performed at: [facility] Protein, 2:05pm 11:10am [address] [place] [id number] [facility]itativ Study Hall Supervisor: DIDI Cao MD, Phone: [phone] e Serum Total 7.0 g/dL 6.0-8.5 12/02/2016 [...] 12/02/2016 12/03/2016 Performed at: [facility] - [facility] [place] Aminotransf 2:05pm 1:02pm [address] [facility] [address], [place], [place] [id number] erase Study Hall Supervisor: DIDI Cao MD, Phone: [phone] (ALT/SGPT) Urine 1.024 1.005-1.030 12/02/2016 12/03/2016 Specific 2:05pm 6:08am [place] Urine pH 6.0 5.0-7.5 12/02/2016 12/03/2016 2:05pm [...] was performed. Microscopic 2:05pm 12:10pm Performed at: [facility] Examination [address] [place] [id number] (LAB Study Hall Supervisor: DIDI Cao MD, Phone: [phone] Microscopic was indicated and was performed. --- 12/03/16 1210 --- MICROSCOPIC EX previously reported as: See below: Microscopic was indicated and was performed. Performed at: [address] [id number] Study Hall Supervisor: DIDI Cao MD, Phone: [phone] Urine >30 /hpf H 0 - 5 [...] has reflexed to a Urine Culture. . 12/02/2016 12/05/2016 REFLEX Performed at: [facility] 2:05pm 5:06pm [address] [place] [id number] Study Hall Supervisor: DIDI Cao MD, Phone: [phone] This specimen has reflexed to a Urine Culture. --- 12/05/16 1706 --- URINALYSIS REFL previously reported as: This specimen has reflexed to a Urine Culture. Performed at: [address] [id number] Study Hall Supervisor: DIDI Cao MD, Phone: [phone] Urine Final report H . 12/02/2016 12/05/2016 Culture 2:05pm 5:06pm Reflexed Urine Escherichia coli, identified by an automated biochemical . 201612/05/2016 Culture system. 2:05pm 5:06pm Result 1 Greater than 100,000 colony forming units per mL Urine Cult S=Susceptible; I=Intermediate; R=Resistant . 10/201712/05/2016 Antimic P=Positive; N=Negative 2:05pm 5:06pm Susceptibil MICS are expressed in micrograms per mL ity Antibiotic RSLT#1 RSLT#2 RSLT#3 RSLT#4 Amoxicillin/Clavulanic Acid I Ampicillin R Cefazolin R Cefepime S Ceftriaxone S Cefuroxime I Cephalothin R Ciprofloxacin R Ertapenem S Gentamicin S Imipenem S Levofloxacin R Nitrofurantoin S Piperacillin R Tetracycline S Tobramycin S Trimethoprim/Sulfa S Performed at: [address] [id number] Study Hall Supervisor: DIDI Cao MD, Phone: [phone] Free 1.18 ng/dL 0.82-1.77 02/16/2017 02/17/2017 Thyroxine 2:15pm 8:14am (T4) Calculated Thyroid 5.670 uIU/mL H 0.450-4.500 02/16/2017 02/17/2017 Performed at: [facility] 2:15pm 8:14am [address] [place] [id number] Hormone Study Hall Supervisor: DIDI Cao MD, Phone: [phone] (TSH) Glucose 99 mg/dL 65-99 02/16/2017 02/17/2017 Level 2:15pm 8:14am Blood Urea 19 mg/dL 8-02/16/2017 02/17/2017 Nitrogen 2:15pm 8:14am Creatinine 0.86 mg/dL 0.57-1.00 02/16/2017 02/17/2017 2:15pm 8:14am BUN/Creatin 22 11-02/16/2017 02/17/2017 Effective February 21, 2017 BUN/Creatinine Ratio ine Ratio 2:15pm 8:14am reference interval will be changing to: Age Male Female 0 days - 7 [...] years 10 - 24 12 - 28 Sodium 145 mmol/L H 134-144 02/16/2017 02/17/2017 Level 2:15pm 8:14am Potassium 3.6 mmol/L 3.5-5.2 02/16/2017 02/17/2017 Level 2:15pm 8:14am Chloride 94 mmol/L L 96-106 02/16/2017 02/17/2017 Level 2:15pm 8:14am Carbon 36 mmol/L H 18-29 02/16/2017 02/17/2017 Dioxide 2:15pm 8:14am Level Calcium 8.9 mg/dL 8.7-10.3 02/16/2017 02/17/2017 Level 2:15pm 8:14am EGFR IF 64 >59 02/16/2017 02/17/2017 Result Units: NONAFRICN 2:15pm 8:14am mL/min/1.73 AM EGFR IF 74 >59 02/16/2017 02/17/2017 Result Units: AFRICN AM 2:15pm 8:14am mL/min/1.73 Prothrombin 12.8 SECONDS H 9.0-12.0 04/15/2017 04/15/2017 Time 9:05am 9:21am Prothromb 1.17 L 2.0-3.0 04/15/2017 04/15/2017 Time THERAPEUTIC 9:05am 9:21am Internation al Ratio D-Dimer < 150 ng/mL 0-230 04/15/2017 04/15/2017 Results <230 ng/ mL yeild a negative Quantitativ 9:05am 10:10am predictability for DVT or PE e (PE/DVT) Lipase 22 U/L 8-57 04/15/2017 04/15/2017 9:05am 9:29am Urine Color YELLOW 04/19/2017 04/19/2017 6:55am 7:31am Urine HAZY 04/19/2017 04/19/2017 Appearance 6:55am 7:31am Urine NEGATIVE NEGATIVE 04/19/2017 04/19/2017 Glucose 6:55am 7:31am (UA) Urine NEGATIVE NEGATIVE 04/19/2017 04/19/2017 Bilirubin 6:55am 7:31am Urine NEGATIVE NEGATIVE 04/19/2017 04/19/2017 Ketones 6:55am 7:31am Urine 1.020 1.005-1.030 04/19/2017 04/19/2017 Specific 6:55am 7:31am [place] Urine NEGATIVE NEGATIVE 04/19/2017 04/19/2017 Occult 6:55am 7:31am Blood Urine pH 6.5 4.5-8.0 04/19/2017 04/19/2017 6:55am 7:31am Urine NEGATIVE NEGATIVE 04/19/2017 04/19/2017 Protein 6:55am 7:31am Urine 2.0 E.U./dL 0.2-1.0 04/19/2017 04/19/2017 Urobilinoge 6:55am 7:31am n Urine NEGATIVE NEGATIVE 04/19/2017 04/19/2017 Nitrate 6:55am 7:31am Urine TRACE H NEGATIVE 04/19/2017 04/19/2017 Leukocyte 6:55am 7:31am Esterase Urine RBC 0-1 /hpf NONE 04/19/2017 04/19/2017 6:55am 7:33am Urine WBC 5-10 /hpf H NONE 04/19/2017 04/19/2017 THIS SPECIMEN MEETS MEDICAL STAFF CRITERIA 6:55am 7:33am FOR A URINE CULTURE. A CULTURE HAS BEEN SET. Urine 75-100 /lpf 04/19/2017 04/19/2017 Epithelial 6:55am 7:33am Cells Urine 2+ /hpf H NONE 04/19/2017 04/19/2017 THIS SPECIMEN MEETS MEDICAL STAFF CRITERIA Bacteria 6:55am 7:33am FOR A URINE CULTURE. A CULTURE HAS BEEN SET. Urine Mucus 2+ /lpf NONE 04/19/2017 04/19/2017 6:55am 7:33am Thyroid 3.06 uIU/ml 0.34-5.60 04/18/2017 04/18/2017 Stimulating 2:01pm 3:14pm Hormone (TSH) Digoxin < 0.1 ng/ml L 0.8-2.0 04/18/2017 04/18/2017 Level 2:01pm 2:29pm White Blood 4.6 K/uL L 5.0-10.0 03/15/2018 03/15/2018 Count 5:17am 6:17am Red Blood 4.06 M/uL L 4.20-5.40 03/15/2018 03/15/2018 Count 5:17am 6:17am Hemoglobin 12.1 g/dL 12.0-16.0 03/15/2018 03/15/2018 5:17am 6:17am Hematocrit 38.7 % 38.0-47.0 03/15/2018 03/15/2018 5:17am 6:17am Mean 95.3 fL 82.0-100.0 03/15/2018 03/15/2018 Corpuscular 5:17am 6:17am Volume Mean 29.8 pg 26.0-33.0 03/15/2018 03/15/2018 Corpuscular 5:17am 6:17am Hemoglobin Mean 31.3 g/dL 31.0-36.0 03/15/2018 03/15/2018 Corpuscular 5:17am 6:17am Hemoglobin Concent Red Cell 13.6 % 11.5-14.5 03/15/2018 03/15/2018 Distributio 5:17am 6:17am n Width RDW 47.8 fL H 36.4-46.3 03/15/2018 03/15/2018 Standard 5:17am 6:17am Deviation Platelet 151 K/uL 130-400 03/15/2018 03/15/2018 Count 5:17am 6:17am Mean 9.8 fL 7.0-11.0 03/15/2018 03/15/2018 Platelet 5:17am 6:17am Volume Neutrophils 68.9 % 42.0-75.0 03/15/2018 03/15/2018 (%) (Auto) 5:17am 6:17am Lymphocytes 17.5 % 16.0-44.0 03/15/2018 03/15/2018 (%) (Auto) 5:17am 6:17am Monocytes 10.6 % H 2.0-9.0 03/15/2018 03/15/2018 (%) (Auto) 5:17am 6:17am Eosinophils 2.4 % 0-7.0 03/15/2018 03/15/2018 (%) (Auto) 5:17am 6:17am Basophils 0.4 % 0-1 03/15/2018 03/15/2018 (%) (Auto) 5:17am 6:17am Immature 0.2 % 0-0.5 03/15/2018 03/15/2018 Granulocyte 5:17am 6:17am % (Auto) Nucleated 0.0 /100WBC 0-0 03/15/2018 03/15/2018 Red Blood 5:17am 6:17am Cells % Neutrophils 3.2 K/uL 1.9-8.0 03/15/2018 03/15/2018 # (Auto) 5:17am 6:17am Lymphocytes 0.8 K/uL L 0.9-5.2 03/15/2018 03/15/2018 # (Auto) 5:17am 6:17am Monocytes # 0.5 K/uL 0.16-1.0 03/15/2018 03/15/2018 (Auto) 5:17am 6:17am Eosinophils 0.1 K/uL 0-0.8 03/15/2018 03/15/2018 # (Auto) 5:17am 6:17am Basophils # 0.0 K/uL 0-0.2 03/15/2018 03/15/2018 (Auto) 5:17am 6:17am Immature 0.01 K/uL 0-0.40 03/15/2018 03/15/2018 Granulocyte 5:17am 6:17am # (Auto) Nucleated 0.00 K/uL 0.0-0.012 03/15/2018 03/15/2018 Red Blood 5:17am 6:17am Cells # Urine Color LIGHT YELLOW 03/14/2018 03/14/2018 9:40am 10:04am Urine Negative Negative 03/14/2018 03/14/2018 Turbidity 9:40am 10:04am Urine 1.015 1.000-1.050 03/14/2018 03/14/2018 Specific 9:40am 10:04am [place] Urine Negative Negative 03/14/2018 03/14/2018 Glucose 9:40am 10:04am (UA) Urine Negative Negative 03/14/2018 03/14/2018 Protein 9:40am 10:04am Urine NORMAL Normal 03/14/2018 03/14/2018 Urobilinoge 9:40am 10:04am n Urine Negative Negative 03/14/2018 03/14/2018 Bilirubin 9:40am 10:04am Urine pH 7.0 5.0-8.0 03/14/2018 03/14/2018 9:40am 10:04am Urine Negative Negative 03/14/2018 03/14/2018 Ketones 9:40am 10:04am Urine Negative Negative 03/14/2018 03/14/2018 Leukocyte 9:40am 10:04am Esterase Urine Blood Negative Negative 03/14/2018 03/14/2018 9:40am 10:04am Urine Negative Negative 03/14/2018 03/14/2018 Nitrite 9:40am 10:04am Urine RBC 2.1 /hpf H 0.0-2.0 03/14/2018 03/14/2018 (Auto) 9:40am 10:04am Urine WBC 1.2 /hpf 0.0-5.0 03/14/2018 03/14/2018 (Auto) 9:40am 10:04am Urine 2.8 /lpf 0.0-10.0 03/14/2018 03/14/2018 Epithelial 9:40am 10:04am Cells (Auto) Urine Casts 0.1 /lpf 0.0-10.0 03/14/2018 03/14/2018 (Auto) 9:40am 10:04am Urine 111.3 /hpf 0.0-500.0 03/14/2018 03/14/2018 Bacteria 9:40am 10:04am (Auto) Random 78 mg/dL 65-115 03/15/2018 03/15/2018 Glucose 5:17am 6:34am Blood Urea 16 mg/dL 8-03/15/2018 03/15/2018 Nitrogen 5:17am 6:34am Creatinine 0.70 mg/dL # L 0.9-1.6 03/15/2018 03/15/2018 5:17am 6:34am Glomerular 80.31 mL/min 03/15/2018 03/15/2018 MULTIPLY RESULT BY 1.210 IF THE PATIENT IS -PANAMANIAN Filtration 5:17am 6:34am Units are mL/min/1.73 m2 Rate Calc > 60 Normal kidney function 30-59 Moderately decreased kidney function 15-29 Severely decreased kidney function <15 End-stage kidney failure BUN/Creatin 22.9 03/15/2018 03/15/2018 ine Ratio 5:17am 6:34am Sodium 136 mEq/L 133-145 03/15/2018 03/15/2018 Level 5:17am 6:34am Potassium 3.9 mEq/L 3.5-5.1 03/15/2018 03/15/2018 Level 5:17am 6:34am Chloride 99 mEq/L 98-116 03/15/2018 03/15/2018 Level 5:17am 6:34am Carbon 33 mEq/L 22-34 03/15/2018 03/15/2018 Dioxide 5:17am 6:34am Level Anion Gap 7.9 6-13 03/15/2018 03/15/2018 5:17am 6:34am Calcium 8.5 mg/dL 8.2-10.6 03/15/2018 03/15/2018 Level 5:17am 6:34am Total 6.2 gm/dL 6.0-8.4 03/14/2018 03/14/2018 Protein 9:40am 10:34am Albumin 3.5 gm/dL 3.2-5.0 03/14/2018 03/14/2018 9:40am 10:34am Globulin 2.7 gm/dL 2.0-3.0 03/14/2018 03/14/2018 9:40am 10:34am Albumin/Jenny 1.3 L 1.4-2.4 03/14/2018 03/14/2018 bulin Ratio 9:40am 10:34am Total 0.8 mg/dL 0.1-1.3 03/14/2018 03/14/2018 Bilirubin 9:40am 10:34am Alkaline 57 U/L 35-125 03/14/2018 03/14/2018 Phosphatase 9:40am 10:34am Aspartate 16 U/L 5-40 03/14/2018 03/14/2018 Amino 9:40am 10:34am Transf (AST/SGOT) Alanine 12 U/L 5-40 03/14/2018 03/14/2018 Aminotransf 9:40am 10:34am erase (ALT/SGPT) Troponin I 0.01 ng/mL 0.0-0.02 03/14/2018 03/14/2018 9:40am 10:34am Total 56 U/L 10-180 03/14/2018 03/14/2018 Creatine 9:40am 10:34am Kinase Lactic Acid 0.7 mmol/L 0.5-1.9 03/14/2018 03/14/2018 Level 11:39am 12:14pm MRSA MRSA NEGATIVE NEGATIVE 03/14/2018 03/14/2018 Surveillanc 3:22pm 7:54pm e Screen B-Type 191 pg/mL H 15-100 03/14/2018 03/14/2018 Natriuretic 9:40am 10:38am Peptide Microbiology Results Procedure Source Organism/Result Collection Result Result Status Date/Time Date/Time Urine Culture Urine,Clean >100,000 CFU/ML 04/19/2017 04/21/2017 Final Catch MIXED BODY SUSAN 6:55am 8:21am AFTER 2 DAYS Blood Culture Blood No growth. 03/14/2018 03/14/2018 Preliminary 11:55am 11:58pm Procedures Procedure Status Date Provider(s) INSERTION OF ENDOTRACHEAL AIRWAY INTO TRACHEA, Completed 10/25/15 IRAJ LÓPEZ M.D. VIA OPENING THER/PROPH/DIAG INJ IV PUSH Completed 05/07/16 LANDEN GANT M.D. THER/PROPH/DIAG INJ IV PUSH Completed 06/26/16 LANDEN GANT M.D. TX/PRO/DX INJ NEW DRUG ADDON Completed 06/26/16 LANDEN GANT M.D. THER/PROPH/DIAG INJ IV PUSH Completed 01/03/17 LONNIE BISHOP M.D. Encounters Encounter Location Arrival/Admit Date Discharge/Depart Date Attending Provider Discharged [facility] 03/14/18 12:55pm 03/15/18 11:52am MAZIN Inpatient (obs) [facility] MADELINE Champion D.O. Discharged [facility] 04/18/17 5:12pm 04/21/17 3:29pm LENO VILLAFANA Inpatient [facility] Pedro Cardoso M.D. Departed [facility] 04/17/17 4:58pm 04/17/17 6:24pm MAZIN Emergency Room [facility] MADELINE Champion D.O. Departed [facility] 04/15/17 9:00am 04/15/17 10:28am LONNIE BISHOP M.D. Emergency Room [facility] Departed [facility] Small 03/03/17 1:40pm 03/03/17 3:00pm MAZIN Emergency Room [facility] MADELINE Champion D.O. Registered Leno Matias Ruben 02/16/17 2:30pm RUBENLENO BRANDON M.D. Office Visit [facility]ENO Matias RUBEN 02/16/17 2:30pm LENO VILLAFANA M.D. Registered [facility] 02/16/17 2:04pm [facility] [facility] Walker Benjamin Office Visit LENO Florencio RUBEN 01/06/17 3:30pm LENO VILLAFANA M.D. Departed [facility] 01/03/17 6:46pm 01/03/17 8:40pm LONNIE BISHOP M.D. Emergency Room [facility] Registered [facility] 12/02/16 1:49pm [place] [facility] Walker Benjamin Office Visit LENO Florencio RUBEN 12/02/16 1:30pm LENO VILLAFANA M.D. Registered [facility] 07/29/16 2:47pm [place] [facility] Walker Benjamin Office Visit LENO Florencio RUBEN 07/29/16 2:30pm LEON VILLAFANA M.D. Departed [facility] 06/26/16 7:22pm 06/26/16 9:43pm [place] Emergency Room [facility] Eliezer Benjamin Departed [facility] 05/07/16 9:50pm 05/07/16 11:45pm [place] Emergency Room [facility] Eliezer Benjamin Office Visit LENO Florencio RUBEN 04/30/16 10:45am SHRAVAN WHELAN M.D. Office Visit [facility] Florencio RUBEN 04/22/16 3:15pm LENO VILLAFANA M.D. Discharged [facility] 04/05/16 8:20am 04/07/16 10:20am RUBENLENO BRANDON [facility] Walker Benjamin Registered [facility] 02/03/16 1:54pm OTHER, DOCTOR Referred [facility]. Hospital Discharged [facility] Small 10/23/15 7:58pm 11/04/15 12:20pm SCOTTIE SADLER Inpatient [facility]. [facility] P Recent Diagnosis Altered mental status Encounter for long-term (current) use of other medications Pedal edema Altered mental status Hypoxia Hypotension CHF exacerbation Pedal edema Hypotension Anemia Low back pain Hypoventilation CHR AIRWAY OBSTRUCT NEC
--- OUTSIDE RECORDS SUMMARY | 2018-04-28 05:05 | External Medical Summary | Continuity of Care Document ---
:1935 Author Organization [facility] [facility] [employer]) Phone Unavailable Care Team Providers Name Role Phone LENO MIRANDA M.D. Unavailable Insurance Providers Guarantor Suki Bennett Address [address] [place] [id number] Payer [employer] Medicare Policy Number [id number] Subscriber's Name Suki Bennett Relationship 01 Self / Same As Patient Effective Date 09 Advance Directives Directive Response Recorded Date/Time Patient Resuscitation Status Full Code 04/18/17 5:40pm Advance Directives No 04/18/17 5:40pm Living Will No 04/18/17 5:40pm Problems Active Problems Medical Problem Onset Date Status Altered mental status Unknown Anemia Unknown Acute Bradycardia Unknown Resolved CHF [...] Onset Date Bronchitis Unknown Chest pain Unknown Dementia Unknown Leg edema Unknown Nonspecific chest pain Unknown Pedal edema Unknown Peripheral edema Unknown Peripheral edema Unknown Weakness Unknown Medications Current Home Medications Medication Dose Units Route Directions Days Qty Instructions Start Date Aspirin 81 Mg Oral Daily 10/24/15 (Aspir-81) 81 Mg Tab Digoxin 0.125 Mg 1 Tablet Oral Daily 30 Tablet 12/09/16 Tab Furosemide 40 Mg 2 Tab Oral Daily 65 Tablet TAKE 2 IN THE 04/17/17 Tab AM AND 1 IN THE AFTERNOON [...] Applicable Not Applicable Smoking Status Former smoker 04/18/2017 5:40pm Not Applicable Not Applicable Query Response Start Date Stop Date Smoking Status Former smoker Hospital Discharge Instructions Discharge Instructions Multidisciplinary Instructions Social Work Dismissal Instructions: Per patient record, family is looking into placement. Plan of Care Discharge Date 04/21/17 3:29pm Disposition 03 XFER SNF Instructions/Education Provided Instructions from visit on: 02/16/17 Lab today.Encouraged her to explore ways with her family that might however to remember to take her medications in a more reliable manner though I think she has done pretty well for the last month probably.No change in medications. Reassess here in 6-8 weeks. Prescriptions See Medication Section Care Plan and Goals See Discharge Instructions Section Functional Status Query Response Date Recorded FUNCTIONAL ACTIVITIES: Supine to Sit 6/7 Modified Mobile April 21, 2017 9 :51am Ability Overall Activities Daily Living Limited/One person assist April 18, 2017 5:40pm Ability/Staff Support Toileting Ability/Staff Support Limited/One person assist April 19, 2017 4:18pm Oral Care Ability/Staff Support Activity did not occur April 21, 2017 12:26am Upper Body Dressing Ability/Staff Limited/One person assist April 19, 2017 4: 18pm Support Lower Body Dressing Ability/Staff Activity did not occur April 19, 2017 4:18pm Support Bed Mobility Supine to Sit Ability 6/7 Modified Mobile April 19, 2017 12: 52pm Bed Transfer Ability 5/7 Supervision/Set-up April 19, 2017 12:52pm Toilet Transfer Ability 5/7 Supervision/Set-up April 19, 2017 12:52pm Memory Description Short term impaired April 21, 2017 9:05am residential impaired Cognitive Skills Moderately impaired April 21, 2017 9:05am Making self understood Usually understood April 21, 2017 9:05am Indicators of depression Unpleasant mood in am April 21, 2017 9:05am Allergies, Adverse Reactions, Alerts Allergen Type Severity Reaction Status Last Updated Cephalosporins ([id number]) Allergy Unknown Active 03/03/17 Sulfonylureas ([id number]) Allergy Unknown Active 03/03/17 Sulfones ([id number]) Allergy Unknown Active 03/03/17 Immunizations Immunization Event Date Type Not Given Dose Number Lot Number Manager Primary Care Reason Tetanus, 08/31/10 Administered 1 Diphtheria Vaccine Query Response on File Recorded Date/Time Pneumonia Vaccine Received No 04/18/17 5:40pm Had a Tetanus Toxoid Vaccination less than 10yrs No 04/18/17 5:40pm ago Vital Signs Acute Vital Signs Vital Response Date/Time Blood Pressure 117/58 mm Hg 04/21/2017 7:35am Blood Pressure Mean 77 mm Hg 04/21/2017 7:35am Temperature (Fahrenheit) 98.1 degrees F (96.0 - 99.9) 04/21/2017 7:35am Temperature (Calculated Celsius) 36.18701 degrees C 04/21/2017 7:35am Temperature Source Oral 04/21/2017 7:35am Temperature Source Axillary 04/17/2017 6:22pm Pulse Pulse Rate (adult) 75 bpm (60 - 100) 04/21/2017 9:05am Pulse Rate: ED 77 bpm 04/18/2017 4:31pm Apical Pulse Rate 75 bpm (60 - 90) 04/21/2017 9:04am Pulse Pulse Rate (adult) 75 bpm (60 - 100) 04/21/2017 9:05am Respiratory Rate 20 breaths per minute (10 - 20) 04/21/2017 7:35am Height (Feet) 5 ft 04/18/2017 5:40pm Height (Inches) 2.0 in. 04/18/2017 5:40pm Weight (Pounds) 126.2 lbs 04/21/2017 6:13am Height 5 ft 2 in 04/18/2017 1:50pm Weight 126.20 lb 04/21/2017 6:13am Body Mass Index 23.1 kg/m^2 04/21/2017 6:13am Ambulatory Vital Signs Vital Response Date/Time Height [...] 24 mm/hr 0-40 12/02/2016 12/03/2016 Performed at: DA - [facility]
on Rate, 2:05pm 7:11am [address] [place] [phone]
Westergren Finishing Manager: DIDI Cao MD, Phone: [phone] &# 10; C-Reactive 1.4 mg/L 0.0-4.9 12/02/2016 12/03/2016 Performed at: DA - [facility]
Protein, 2:05pm 11:10am [address] [place] [phone]
Quantitativ Finishing Manager: DIDI Cao MD, Phone: [phone] &# 10; e Serum Total 7.0 g/dL [...] 6 IU/L 0-32 12/02/2016 12/03/2016 [facility]
Aminotransf 2:05pm 1:02pm [address] [place] [address], [place], [place] [phone]
erase Finishing Manager: DIDI Cao MD, Phone: [phone]
(ALT/SGPT) Urine 1.024 1.005-1.030 12/02/2016 12/03/2016 Specific 2:05pm 6:08am [place] Urine pH 6.0 5.0-7.5 12/02/2016 12/03/2016 2:05pm [...] was performed.
Microscopic 2:05pm 12:10pm [facility] &# 10; Examination [address] [place] [phone]&#13 ;
(LAB Finishing Manager: DIDI Cao MD, Phone: [phone]

Microscopic was indicated and was performed.

--- 12/03/16 1210 ---
MICROSCOPIC EX previously reported as:
See below:
Microscopic was indicated and was performed.
Performed at: [facility]
[address] [address], [place], [place] [phone]
Finishing Manager: DIDI Cao MD, Phone: [phone]

Urine >30 /hpf H 0 - 5 [...] Urine Culture.
. 12/05/2016 REFLEX Performed at: [facility]
2:05pm 5:06pm [address] [place] [phone]
Finishing Manager: DIDI Cao MD, Phone: [phone]

This specimen has reflexed to a Urine Culture.

--- 12/05/16 1706 ---
URINALYSIS REFL previously reported as:

This specimen has reflexed to a Urine Culture.
Performed at: [facility]
[address] [address], [place], [place] [phone]
Finishing Manager: DIDI Cao MD, Phone: [phone]

Urine Final report H . 12/02/2016 12/05/2016 [...] S
Tobramycin S
Trimethoprim/Sulfa S
Performed at: [facility]
[address] [phone]
Finishing Manager: DIDI Cao MD, Phone: [phone]
Free 1.18 ng/dL 0.82-1.77 02/16/2017 02/17/2017 Thyroxine 2:15pm 8:14am (T4) Calculated Thyroid 5.670 uIU/mL H 0.450-4.500 02/16/2017 02/17/2017 Performed at: [facility]
Stimulating 2:15pm 8:14am [address] [place] [phone]
Hormone Finishing Manager: DIDI Cao MD, Phone: [phone]
(TSH) Glucose 99 mg/dL 65-99 02/16/2017 02/17/2017 [...] Level 2:15pm 8:14am Carbon 36 mmol/L H 18-02/16/2017 02/17/2017 Dioxide 2:15pm 8:14am Level Calcium 8.9 [...] 0-230 04/15/2017 04/15/2017 Results <230 ng/ mL jing booker negative
Quantitativ 9:05am 10:10am predictability for DVT [...] 8-57 04/15/2017 04/15/2017 9:05am 9:29am White Blood 7.3 K/uL # 5.0-10.0 04/20/2017 04/20/2017 Count 6:11am 6:19am Red Blood 4.59 M/uL 4.20-5.40 04/20/2017 04/20/2017 Count 6:11am 6:19am Hemoglobin 13.8 g/dL 12.0-16.0 04/20/2017 04/20/2017 6:11am 6:19am Hematocrit 43.2 % 38.0-47.0 04/20/2017 04/20/2017 6:11am 6:19am Mean 94.1 fL 82.0-100.0 04/20/2017 04/20/2017 Corpuscular 6:11am 6:19am Volume Mean 30.1 pg 26.0-33.0 04/20/2017 04/20/2017 Corpuscular 6:11am 6:19am Hemoglobin Mean 31.9 g/dL 31.0-36.0 04/20/2017 04/20/2017 Corpuscular 6:11am 6:19am Hemoglobin Concent Red Cell 14.6 % H 11.5-14.5 04/20/2017 04/20/2017 Distributio 6:11am 6:19am n Width RDW 50.1 fL H 36.4-46.3 04/20/2017 04/20/2017 Standard 6:11am 6:19am Deviation Platelet 189 K/uL 130-400 04/20/2017 04/20/2017 Count 6:11am 6:19am Mean 9.8 fL 7.0-11.0 04/20/2017 04/20/2017 Platelet 6:11am 6:19am Volume Neutrophils 65.8 % 42.0-75.0 04/20/2017 04/20/2017 (%) (Auto) 6:11am 6:19am Lymphocytes 24.1 % 16.0-44.0 04/20/2017 04/20/2017 (%) (Auto) 6:11am 6:19am Monocytes 7.8 % 2.0-9.0 04/20/2017 04/20/2017 (%) (Auto) 6:11am 6:19am Eosinophils 1.8 % 0-7.0 04/20/2017 04/20/2017 (%) (Auto) 6:11am 6:19am Basophils 0.4 % 0-1 04/20/2017 04/20/2017 (%) (Auto) 6:11am 6:19am Immature 0.1 % 0-0.5 04/20/2017 04/20/2017 Granulocyte 6:11am 6:19am % (Auto) Nucleated 0.0 /100WBC 0-0 04/20/2017 04/20/2017 Red Blood 6:11am 6:19am Cells % Neutrophils 4.8 K/uL 1.9-8.0 04/20/2017 04/20/2017 # (Auto) 6:11am 6:19am Lymphocytes 1.8 K/uL 0.9-5.2 04/20/2017 04/20/2017 # (Auto) 6:11am 6:19am Monocytes # 0.6 K/uL 0.16-1.0 04/20/2017 04/20/2017 (Auto) 6:11am 6:19am Eosinophils 0.1 K/uL 0-0.8 04/20/2017 04/20/2017 # (Auto) 6:11am 6:19am Basophils # 0.0 K/uL 0-0.2 04/20/2017 04/20/2017 (Auto) 6:11am 6:19am Immature 0.01 K/uL 0-0.40 04/20/2017 04/20/2017 Granulocyte 6:11am 6:19am # (Auto) Nucleated 0.00 K/uL 0.0-0.012 04/20/2017 04/20/2017 Red Blood 6:11am 6:19am Cells # Urine Color YELLOW 04/19/2017 04/19/2017 6:55am 7:31am Urine HAZY 04/19/2017 04/19/2017 Appearance 6:55am 7:31am Urine NEGATIVE NEGATIVE 04/19/2017 04/19/2017 Glucose 6:55am 7:31am (UA) Urine NEGATIVE NEGATIVE 04/19/2017 04/19/2017 Bilirubin 6:55am 7:31am Urine NEGATIVE NEGATIVE 04/19/2017 04/19/2017 Ketones 6:55am 7:31am Urine 1.020 1.005-1.030 04/19/2017 04/19/2017 Specific 6:55am 7:31am [place] Urine NEGATIVE NEGATIVE 04/19/2017 04/19/2017 Occult 6:55am [...] 2+ /lpf NONE 04/19/2017 04/19/2017 6:55am 7:33am Random 120 mg/dL H 65-115 04/20/2017 04/20/2017 Glucose 6:11am 6:44am Blood Urea 15 mg/dL 8-25 04/20/2017 04/20/2017 Nitrogen 6:11am 6:44am Creatinine 0.61 mg/dL L 0.9-1.6 04/20/2017 04/20/2017 6:11am 6:44am Glomerular 94.37 mL/min 04/20/2017 04/20/2017 MULTIPLY RESULT BY 1.210 IF THE PATIENT IS -GREEK
Filtration 6:11am 6:44am Units are mL/min/1.73 m2
Rate Calc
> 60 Normal kidney function
30-59 Moderately decreased kidney function
15-29 Severely decreased kidney function
<15 End-stage kidney failure
BUN/Creatin 24.6 04/20/2017 04/20/2017 ine Ratio 6:11am 6:44am Sodium 136 mEq/L 133-145 04/20/2017 04/20/2017 Level 6:11am 6:44am Potassium 4.2 mEq/L 3.5-5.1 04/20/2017 04/20/2017 Level 6:11am 6:44am Chloride 98 mEq/L 98-116 04/20/2017 04/20/2017 Level 6:11am 6:44am Carbon 31 mEq/L 22-34 04/20/2017 04/20/2017 Dioxide 6:11am 6:44am Level Anion Gap 11.2 6-13 04/20/2017 04/20/2017 6:11am 6:44am Calcium 9.2 mg/dL 8.2-10.6 04/20/2017 04/20/2017 Level 6:11am 6:44am Thyroid 3.06 uIU/ml 0.34-5.60 04/18/2017 04/18/2017 Stimulating 2:01pm 3:14pm Hormone (TSH) Digoxin < 0.1 ng/ml L 0.8-2.0 04/18/2017 04/18/2017 Level 2:01pm 2:29pm MRSA MRSA NEGATIVE NEGATIVE 04/19/2017 04/19/2017 Surveillanc 4:40am 6:44am e Screen B-Type 164 pg/mL H 15-100 04/18/2017 04/18/2017 Natriuretic 2:01pm 2:38pm Peptide Microbiology Results Procedure Source Organism/Result Collection Result Result Date/Time Date/Time Status Blood Culture Blood No growth. 10/23/2015 10/24/2015 Final 6:49pm 6:54am Urine Culture Urine,Clean >100,000 CFU/ML 04/19/2017 04/21/2017 Final Catch MIXED BODY SUSAN 6:55am 8:21am AFTER 2 DAYS Procedures No known history of procedures. Encounters Encounter Location Arrival/Admit Date Discharge/Depart Date Attending Provider Discharged [facility] Small 04/18/17 5:12pm 04/21/17 3:29pm LENO MIRANDA Inpatient [facility] Departed sTering Small 04/17/17 4:58pm 04/17/17 6:24pm MAZIN Emergency Room [facility] MADELINE Champion D.O. Departed [facility]ser[facility] Small 04/15/17 9:00am 04/15/17 10:28am LONNIE BISHOP M.D. Emergency Room [facility] Departed [facility] Small 03/03/17 1:40pm 03/03/17 3:00pm [facility] Emergency Room [facility] MADELINE ManciaOYanick Office Visit LENO Florencio LEDY 02/16/17 2:30pm LENO MIRANDA M.D. Registered Leno Miranda 02/16/17 2:30pm LENO MIRANDA M.D. Registered [facility] Small 02/16/17 2:04[facility] LENO Florencio LEDY 01/06/17 3:30pm LENO MIRANDA M.D. Departed [facility] Small 01/03/17 6:46pm 01/03/17 8:40pm LONNIE BISHOP M.D. Emergency Room [facility] Registered Tsering Small 12/02/16 1:49pm LEDYLENO BRANDON [facility] Office Visit LENO Florencio LEDY 12/02/16 1:30pm LENO MIRANDA M.D. Registered [facility] Small 07/29/16 2:47pm LEDYLENO BRANDON [facility] Office Visit LENO MIRANDA 07/29/16 2:30pm LENO MIRANDA M.D. Departed [facility] Small 06/26/16 7:22pm 06/26/16 9:43pm LANDEN GANT Emergency [facility] Departed Tsering Small 05/07/16 9:50pm 05/07/16 11:45pm LANDEN GANT Emergency Room [facility] Office Visit LENO LEDY 04/30/16 10:45am SHRAVAN WHELAN M.D. Office Visit LENO Florencio LEDY 04/22/16 3:15pm LENO MIRANDA M.D. Discharged [facility] Small 04/05/16 8:20am 04/07/16 10:20LENO Negron [facility] M. M.D. Registered Tsering Small 02/03/16 1:54pm OTHER, DOCTOR Referred [facility]. Hospital Discharged Tsering Small 10/23/15 7:58pm 11/04/15 12:20pm SCOTTIE SADLER Inpatient [facility] Pedro LITTLE Registered [facility]sering Small 02/06/15 3:15pm LENO MIRANDA [facility] Office Visit LENO MIRANDA 02/06/15 3:00pm LENO MIRANDA M.D.
--- OUTSIDE RECORDS SUMMARY | 2018-04-28 05:05 | External Medical Summary | Continuity of Care Document ---
:1935 Author Organization [employer] Mobile Phone Unavailable Care Team Providers Name Role Phone LENO VILLAFANA M.D. Unavailable Insurance Providers Guarantor Suki Bennett Address [address] [place] [address] Payer [employer] Medicare Policy Number [id number] Subscriber's Name Suki Bennett Relationship 01 Self / Same As Patient Effective Date 09 Chief Complaint and Reason for Visit Chief Complaint Cough Reason for Visit Bronchitis Problems Active Problems Medical Problem Onset Date Status Anemia Unknown Acute Bradycardia Unknown Resolved Bronchitis Unknown Acute CHR 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 COPD (chronic [...] 2 Puffs Inhalation Every 4 1 Each Sulfate (Proair Hours As 6 Hfa) 108 Needed for Mcg/Act Aer Dyspnea/Whee ze Aspirin 81 Mg Oral Daily (Aspir-81) 81 5 Mg Tab Digoxin 0.125 1 Tablet Oral Daily 30 Tablet Mg Tab 7 Doxycycline 100 Mg Oral Twice A Day 14 Hyclate 100 Mg for Bactinf Capsule 7 Cap Furosemide 40 2 Tab Oral Daily 65 Tablet TAKE 2 IN THE Mg Tab AM AND 1 IN 6 THE AFTERNOON FOR 5 DAYS, THEN BACK TO 2 IN THE AM. Levothyroxine 50 Mcg Oral Daily 30 Tablet Sodium 25 Mcg 7 Tab Metoprolol 1 Tab Oral Daily 30 Tablet Succinate 7 (Toprol Xl) 50 Mg Tab Potassium 10 Meq Oral Twice A Day 65 Tablet TAKE TID FOR 5 Chloride DAYS, THEN 7 (K-Tabs) 10 Meq BACK TO BID Tab [...] Applicable Not Applicable Smoking Status Former smoker 03/03/2017 1:45pm Not Applicable Not Applicable Query Response Start Date Stop Date Smoking Status Former smoker Hospital Discharge Instructions No hospital discharge instructions. Plan of Care Discharge Date 03/03/17 3:00pm Disposition 01 HOME, SELF-CARE Condition at Discharge [...] weeks. Prescriptions See Medication Section Referrals LENO VILLAFANA M.D. Address: [address] [place] [id number] Additional Instructions/Education Patient is instructed to take medications as prescribed. Follow up with PCP in 3-5 days. Continue oxygen at home. Functional Status No functional status results. Allergies, Adverse Reactions, Alerts Allergen Type Severity Reaction Status Last Updated Cephalosporins ([id number]) Allergy Unknown Active 03/03/17 Sulfonylureas ([id number]) Allergy Unknown Active 03/03/17 Sulfones ([id number]) Allergy Unknown Active 03/03/17 Immunizations Immunization Event Date Type Not Given Dose Number Lot Number Quality Auditor Reason Tetanus, 08/31/10 Administered 1 Diphtheria Vaccine Vital Signs Acute Vital Signs Vital Response Date/Time Blood Pressure 133/76 mm Hg 03/03/2017 2:34pm Blood Pressure Mean 95 mm Hg 03/03/2017 2:34pm Temperature (Fahrenheit) 97.8 degrees F (96.0 - 99.9) 03/03/2017 1:41pm Temperature (Calculated Celsius) 36.19493 degrees C 03/03/2017 1:41pm Temperature Source Oral 04/07/2016 8:45am Temperature Source Oral 03/03/2017 1:41pm Pulse Pulse Rate (adult) 72 bpm (60 - 100) 06/26/2016 7:47pm Pulse Rate: ED 75 bpm 03/03/2017 2:34pm Apical Pulse Rate 85 bpm (60 - 90) 04/07/2016 8:47am Respiratory Rate 17 breaths per minute (10 - 20) 03/03/2017 2:34pm Height (Feet) 5 ft 03/03/2017 1:41pm Height (Inches) 2.0 in. 03/03/2017 1:41pm Weight (Pounds) 135.0 lbs 03/03/2017 1:41pm Height 5 ft 2 in 03/03/2017 1:41pm Weight 135 lb 03/03/2017 1:41pm Body Mass Index 24.7 kg/m^2 03/03/2017 1:41pm Ambulatory Vital Signs Vital Response Date/Time Height [...] MARGARET AT 1148 BY Quantitative 9:50am 11:48am [id number].
(PE/DVT) Results <230 ng/mL yeild a negative
[...] 24 mm/hr 0-40 12/02/2016 12/03/2016 [facility]
n Rate, 2:05pm 7:11am [address] [place] [phone]
Westergren Trimmer Buffing Wheel: DIDI Cao MD, Phone: [phone] &# 10; C-Reactive 1.4 mg/L 0.0-4.9 12/02/2016 12/03/2016 Performed at: DA - [facility]
Protein, 2:05pm 11:10am [address] [place] [phone]
Quantitative Trimmer Buffing Wheel: DIDI Cao MD, Phone: [phone] & #10; Serum Total 7.0 g/dL 6.0-8.5 12/02/2016 12/03/2016 [...] 12/02/2016 12/03/2016 Performed at: DA - [facility] [place]
Aminotransfe 2:05pm 1:02pm [address] [phone]
rust Trimmer Buffing Wheel: DIDI Cao MD, Phone: [phone]
(ALT/SGPT) Urine 1.024 1.005-1.03 12/02/2016 12/03/2016 Specific 0 2:05pm 6:08am [place] Urine pH 6.0 5.0-7.5 12/02/2016 12/03/2016 2:05pm [...] was performed.
Microscopic 2:05pm 12:10pm Performed at: [facility] &# 10; Examination [address] [place] [address], [place], [place] [phone]&#13 ;
(LAB Trimmer Buffing Wheel: DIDI Cao MD, Phone: [phone]

Microscopic was indicated and was performed.

--- 12/03/16 1210 ---
MICROSCOPIC EX previously reported as:
See below:
Microscopic was indicated and was performed.
Performed at: [facility]
[address] [address], [place], [place] [phone]
Trimmer Buffing Wheel: DIDI Cao MD, Phone: [phone]

Urine >30 /hpf H 0 - 5 [...] Urine Culture.
. 12/05/2016 REFLEX Performed at: [facility]
2:05pm 5:06pm [address] [address], [place], [place] [phone]
Trimmer Buffing Wheel: DIDI Cao MD, Phone: [phone]

This specimen has reflexed to a Urine Culture.

--- 12/05/16 1706 ---
URINALYSIS REFL previously reported as:

This specimen has reflexed to a Urine Culture.
Performed at: [facility]
[address] [address], [place], [place] [phone]
Trimmer Buffing Wheel: DIDI Cao MD, Phone: [phone]

Urine Final report H . 12/02/2016 12/05/2016 [...]
Trimethoprim/Sulfa S
Performed at: DA - [facility] [place]
[address] [facility] [address], [place], [place] [phone]
Trimmer Buffing Wheel: DIDI aCo MD, Phone: [phone]
White Blood 6.5 K/uL 5.0-10.0 01/03/2017 01/03/2017 [...] 1.005-1.03 01/03/2017 01/03/2017 Specific 0 7:18pm 7:39pm [place] Urine Occult 1+ H NEGATIVE 01/03/2017 01/03/2017 [...] RESULT BY 1.210 IF THE PATIENT IS -BERMUDIAN
Filtration 7:05pm 7:28pm Units are mL/min/1.73 m2
[...] Dioxide 7:05pm 7:29pm Level Anion Gap 6.6 6-13 01/03/2017 01/03/2017 7:05pm 7:29pm Calcium 8.5 mg/dL 8.2-10.6 [...] 8:14am (T4) Calculated Thyroid 5.670 uIU/mL H 0.450-4.50 02/16/2017 02/17/2017 Performed at: DA - [facility] [place]
Stimulating 0 2:15pm 8:14am [address] [place] [address], [place], [place] [phone]
Hormone Trimmer Buffing Wheel: DIDI Cao MD, Phone: [phone]
(TSH) Glucose 99 mg/dL 65-99 02/16/2017 02/17/2017 Level 2:15pm 8:14am Blood Urea 19 mg/dL 8-27 02/16/2017 02/17/2017 Nitrogen 2:15pm 8:14am Creatinine 0.86 mg/dL 0.57-1.00 02/16/2017 02/17/2017 2:15pm 8:14am BUN/Creatini 22 -02/16/2017 02/17/2017 Effective February 21, 2017 BUN/Creatinine Ratio
ne Ratio 2:15pm 8:14am reference interval will be changing to:&#13 ;
Age Male Female
0 days - 7 [...] 24 12 - 28 &# 10; Sodium Level 145 mmol/L H 134-144 02/16/2017 02/17/2017 2:15pm 8:14am Potassium 3.6 mmol/L 3.5-5.2 02/16/2017 02/17/2017 Level 2:15pm 8:14am Chloride 94 mmol/L L 96-106 02/16/2017 02/17/2017 Level 2:15pm 8:14am Carbon 36 mmol/L H 18-29 02/16/2017 02/17/2017 Dioxide 2:15pm 8:14am Level Calcium 8.9 mg/dL 8.7-10.3 02/16/2017 02/17/2017 Level 2:15pm 8:14am EGFR IF 64 >59 02/16/2017 02/17/2017 Result Units: NONAFRICN AM 2:15pm 8:14am mL/min/1.73&#13 ;
EGFR IF 74 >59 02/16/2017 02/17/2017 Result Units: AFRICN AM 2:15pm 8:14am mL/min/1.73&#13 ;
Microbiology Results Procedure Source Organism/Result Collection Result Result Date/Time Date/Time Status Blood Culture Blood No growth. 10/23/2015 10/24/2015 Final 6:49pm 6:54am Urine Culture Urine,Clean >100,000 CFU/ML 01/03/2017 01/05/2017 Final Catch MIXED BODY SUSAN 7:18pm 8:57am AFTER 2 DAYS Procedures No known history of procedures. Encounters Encounter Location Arrival/Admit Date Discharge/Depart Date Attending Provider Registered Tsering Small 03/03/17 1:40pm MAZIN Emergency Room [facility] MADELINE Champion D.O. Office Visit LENO RUBEN 02/16/17 2:30pm LENO VILLAFANA M.D. Registered Leno Ruben 02/16/17 2:30pm LENO VILLAFANA M.D. Registered T[facility] Small 02/16/17 2:04pm RUBEN, [facility] Office Visit LENO VILLAFANA 01/06/17 3:30pm LENO VILLAFANA M.D. Departed [facility] Small 01/03/17 6:46pm 01/03/17 8:40pm LONNIE BISHOP M.D. Emergency Room [facility] Registered Tsering Small 12/02/16 1:49pm LAKELAND [facility] Office Visit LENO VILLAFANA 12/02/16 1:30pm LENO VILLAFANA M.D. Registered T[facility] Small 07/29/16 2:47pm RUBEN, LENO [facility] Office Visit LENO RUBEN 07/29/16 2:30pm LENO VILLAFANA M.D. Departed [facility] Small 06/26/16 7:22pm 06/26/16 9:43pm GANTLANDEN Emergency [facility] Departed Tsering Small 05/07/16 9:50pm 05/07/16 11:45pm DEALELANDEN Emergency [facility] Office Visit [facility] RUBEN 04/30/16 10:45am SHRAVAN WHELAN M.D. Office Visit LENO VILLAFANA 04/22/16 3:15pm LENO VILLAFANA M.D. Discharged [facility] Small 04/05/16 8:20am 04/07/16 10:20am LENO VILLAFANA Inpatient [facility] Registered Tsering Small 02/03/16 1:54pm OTHER, DOCTOR Referred [facility] Discharged Tsering Small 10/23/15 7:58pm 11/04/15 12:20pm SCOTTIE SADLER Inpatient [facility] Pedro LITTLE Registered Tsering Small 02/06/15 3:15pm LENO VILLAFANA [facility] Office Visit LENO VILLAFANA 02/06/15 3:00pm LENO VILLAFANA M.D. Recent Diagnosis
--- OUTSIDE RECORDS SUMMARY | 2018-04-28 05:05 | External Medical Summary | Continuity of Care Document ---
:1935 Author Organization [facility] Care Team Providers Name Role Phone LENO MIRANDA M.D. Unavailable Unavailable Insurance Providers Payer Name Policy Number Subscriber Name Relationship s Medicare [id number] Suki Bennett 01 Self / Same As Patient Advance Directives Directive Response Recorded Date/Time Patient Resuscitation Status Full Code 10/23/15 9:30pm Advance Directives No 10/23/15 9:30pm Health Care Power of Bobbin Winder Tender No 10/23/15 9:30pm Chief Complaint and Reason for Visit Chief Complaint CHEST CONGESTION/ COUGH/ NASAL DRAINAGE Reason for Visit Bradycardia CONGESTIVE HEART FAILURE Encounter for long-term (current) use of other medications Hypotension Hypotension Hypoventilation Hypoxia Pneumonia Pneumonia Pulmonary HTN Respiratory failure, acute UTI (urinary tract infection) Urinary tract infection Problems Active Problems Medical Problem Onset Date Status Anemia Unknown Acute Bradycardia Unknown Resolved CHR 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 CONGESTIVE HEART FAILURE 09/30/2011 Acute Encounter for long-term (current) use of other medications Unknown Acute Hypotension Unknown Acute Hypotension Unknown Acute Hypoventilation Unknown Acute Hypoxia Unknown Acute Pneumonia Unknown Acute Pneumonia Unknown Acute Pulmonary HTN Unknown Chronic Respiratory failure, acute Unknown Acute UTI (urinary tract infection) Unknown Acute Urinary tract infection Unknown Acute Medications Current Home Medications Medication Dose Units Route Directions Days/Qty Instructions Start Date Furosemide 40 Mg 2 Tab Oral Daily 60 02/24/15 Metoprolol 1 Tab Oral Daily 30 09/09/15 Succinate 50 Mg Digoxin 0.125 Mg 1 Tab Oral Daily 30 Take 1 tab po every 10/14/15 morning Aspirin 81 Mg 81 Mg Oral Daily 10/24/15 Potassium 10 Meq Oral Twice A Day 10/24/15 Chloride 10 Meq Past Home Medications Medication Directions Ordered Status Potassium Bicarbonate 25 Meq Tabef, 25 Daily 07/13/10 Discontinued Meq Oral Digoxin 0.125 Mg Tab, 1 Tab Oral Daily 07/13/10 Discontinued Furosemide 20 Mg Tab, 1 Tab Oral Daily 07/13/10 Discontinued Metoprolol Succinate 25 Mg Tab, 1 Tab Daily 07/13/10 Discontinued Oral Potassium Bicarbonate 25 Meq Tab, 25 Daily 06/11/11 Discontinued Meq Oral Metoprolol Succinate 50 Mg Tab, 50 Mg Daily 06/11/11 Discontinued Oral Furosemide 20 Mg Tab, 1 Tab Oral Daily 08/03/11 Discontinued Digoxin 0.125 Mg Tab, 1 Tab Oral Daily 08/03/11 Discontinued Hydrocodone-Acetaminophen Tab, 1 Tab Every 6 Hours As Needed 09/16/11 Discontinued Oral Metoprolol Succinate 50 Mg Tab, 50 Mg Daily 12/06/11 Discontinued Oral Digoxin 0.125 Mg Tab, 1 Tab Oral Daily 12/06/11 Discontinued Furosemide 20 Mg Tab, 1 Tab Oral Daily 12/06/11 Discontinued Potassium Bicarbonate 25 Meq Tab, 25 Daily 12/06/11 Discontinued Meq Oral Metoprolol Succinate 50 Mg Tab, 50 Mg Daily 03/02/12 Discontinued Oral Potassium Bicarbonate 25 Meq Tab, 25 Daily 03/10/12 Discontinued Meq Oral Digoxin 0.125 Mg Tab, 1 Tab Oral Daily 03/10/12 Discontinued Furosemide 20 Mg Tab, 1 Tab Oral Daily 03/10/12 Discontinued Metoprolol Succinate 50 Mg Tab, 50 Mg Daily 05/09/12 Discontinued Oral Furosemide 20 Mg Tab, 1 Tab Oral Daily 06/05/12 Discontinued Potassium Bicarbonate 25 Meq Tab, 25 Daily 06/05/12 Discontinued Meq Oral Digoxin 0.125 Mg Tab, 1 Tab Oral Daily 06/05/12 Discontinued Metoprolol Succinate 50 Mg Tab, 50 Mg Daily 08/07/12 Discontinued Oral Digoxin 0.125 Mg Tab, 1 Tab Oral Daily 09/28/12 Discontinued Potassium Bicarbonate 25 Meq Tab, 25 Daily 09/28/12 Discontinued Meq Oral Furosemide 20 Mg Tab, 1 Tab Oral Daily 09/28/12 Discontinued Potassium Bicarbonate 25 Meq Tab, 25 Daily 01/19/13 Discontinued Meq Oral Digoxin 0.125 Mg Tab, 1 Tab Oral Daily 01/19/13 Discontinued Furosemide 20 Mg Tab, 1 Tab Oral Daily 01/19/13 Discontinued Metoprolol Succinate 50 Mg Tab, 50 Mg Daily 02/23/13 Discontinued Oral Potassium Chloride 10 Meq Tab, 10 Meq Daily 06/01/13 Discontinued Oral Furosemide 40 Mg Tab, 40 Mg Oral Daily 06/15/13 Discontinued Potassium Chloride 10 Meq Tab, 2 Tab Daily 06/15/13 Discontinued Oral Furosemide 40 Mg Tab, 2 Tab Oral Daily 07/03/13 Discontinued Potassium Chloride 10 Meq Tab, 2 Tab Daily 07/05/13 Discontinued Oral Digoxin 0.125 Mg Tab, 1 Tab Oral Daily 08/22/13 Discontinued Metoprolol Succinate 50 Mg Tab, 50 Mg Daily 08/22/13 Discontinued Oral Potassium Chloride 10 Meq Tab, 1 Tab Daily 08/28/13 Discontinued Oral Digoxin 0.125 Mg Tab, 1 Tab Oral Daily 08/28/13 Discontinued Furosemide 40 Mg Tab, 2 Tab Oral Daily 09/12/13 Discontinued Digoxin 0.125 Mg Tab, 1 Tab Oral Daily 10/01/13 Discontinued Potassium Chloride 10 Meq Tab, 1 Tab Twice A Day 10/08/13 Discontinued Oral Potassium Chloride 10 Meq Tab, 1 Tab Twice A Day 12/12/13 Discontinued Oral Furosemide 40 Mg Tab, 2 Tab Oral Daily 12/12/13 Discontinued Metoprolol Succinate 50 Mg Tab, 50 Mg Daily 02/04/14 Discontinued Oral Digoxin 0.125 Mg Tab, 1 Tab Oral Daily 03/13/14 Discontinued Metoprolol Succinate 50 Mg Tab, 50 Mg Daily 03/13/14 Discontinued Oral Furosemide 40 Mg Tab, 2 Tab Oral Twice A Day 06/18/14 Discontinued Potassium Chloride 10 Meq Tab, 1 Tab Twice A Day 07/26/14 Discontinued Oral Potassium Chloride 10 Meq Tab, 1 Tab Twice A Day 08/26/14 Discontinued Oral Furosemide 40 Mg Tab, 2 Tab Oral Daily 08/26/14 Discontinued Metoprolol Succinate 50 Mg Tab, 1 Tab Daily 09/17/14 Discontinued Oral Digoxin 0.125 Mg Tab, 1 Tab Oral Daily 09/17/14 Discontinued Digoxin 0.125 Mg Tab, 1 Tab Oral Daily 10/07/14 Discontinued Metoprolol Succinate 50 Mg Tab, 1 Tab Daily 10/07/14 Discontinued Oral Digoxin 0.125 Mg Tab, 1 Tab Oral Daily 11/13/14 Discontinued Metoprolol Succinate 50 Mg Tab, 1 Tab Daily 11/13/14 Discontinued Oral Digoxin 0.125 Mg Tab, 1 Tab Oral Daily 12/23/14 Discontinued Metoprolol Succinate 50 Mg Tab, 1 Tab Daily 12/23/14 Discontinued Oral Metoprolol Succinate 50 Mg Tab, 1 Tab Daily 01/22/15 Discontinued Oral Digoxin 0.125 Mg Tab, 1 Tab Oral Daily 01/22/15 Discontinued Potassium Chloride 10 Meq Tab, 1 Tab Daily 02/06/15 Discontinued Oral Furosemide 40 Mg Tab, 1 Tab Oral Daily 02/06/15 Discontinued Metoprolol Succinate 50 Mg Tab, 1 Tab Daily 02/10/15 Discontinued Oral Digoxin 0.125 Mg Tab, 1 Tab Oral Daily 02/10/15 Discontinued Digoxin 0.125 Mg Tab, 1 Tab Oral Daily 09/09/15 Discontinued Social History Social History Problem Response Recorded Date/Time Hx Alcohol Use No 10/01/2011 12:53pm Smoking Status Current every day smoker 10/25/2015 8:32pm Query Response Start Date Stop Date Smoking Status Current every day smoker Hospital Discharge Instructions Medication Information Medication information Medications taken today: k dur protonix levaqin iv asprin lasix lanoxin Discharge Instructions Nursing Instructions Signs and Symptoms to notify your Doctor about:: Fever above 101 deg, Chest Pain , Nausea/Vomiting, Shortness of Breath Diet: Return to Previous Activity: As Tolerated Smoking Cessation Brochure given to patient: No Pain Management Brochure given: Yes Medications returned: N/A Assisstive Device(s) Returned: Wheelchair Home Equipment: Home O2 Plan of Care Discharge Date 11/04/15 12:20pm Disposition 03 [facility] Prescriptions See Medication Section Care Plan and Goals See Discharge Instructions Section Functional Status Query Response Date Recorded FUNCTIONAL ACTIVITIES: Supine to 5/7 Supervision/Set-up November 04, 2015 2: 57pm Sit Ability 4/7 (Pt does 75% or more) Home/Living - Prior Functional Family Assistance October 28, 2015 2:09pm Level Prior Level of Function, Amb, or Amb with single point cane November 04, 2015 2:57pm W/C Mobility Overall Activities Daily Living Independ/Setup help only October 23, 2015 9: 30pm Ability/Staff Support Toileting Ability/Staff Support Limited/One person assist November 04, 2015 7 :30am Oral Care Ability/Staff Support Independ/No setup help November 04, 2015 7: 30am Upper Body Dressing Ability/Staff Extens/One person assist November 03, 2015 3:15pm Support Lower Body Dressing Ability/Staff Extens/One person assist November 03, 2015 3:15pm Support Bed Mobility Supine to Sit 3/7 Moderate Assistance October 28, 2015 2:09pm Ability Bed Transfer Ability 4/7 Minimal Contct Assist October 28, 2015 2:09pm Memory Description pen[facility]entiary intact November 04, 2015 2:57pm Short term impaired Cognitive Skills Modified independence November 04, 2015 7:30am Making self understood Understood November 04, 2015 7:30am Indicators of depression Withdraws from activity November 04, 2015 2:57pm Allergies, Adverse Reactions, Alerts Allergen Type Severity Reaction Status Last Updated Cephalosporins Allergy Unknown Active 10/27/15 Sulfonylureas Allergy Unknown Active 10/23/14 Sulfones Allergy Unknown Active 10/23/14 Immunizations No immunization records. Vital Signs Acute Vital Signs Vital Response Date/Time Blood Pressure 89/52 mm Hg 11/04/2015 10:22am Blood Pressure Mean 64 mm Hg 11/04/2015 10:22am Temperature (Fahrenheit) 98.6 degrees F (96.0 - 99.9) 11/04/2015 6:00am Temperature (Calculated Celsius) 37.62415 degrees C 11/04/2015 6:00am Temperature Source Oral 11/04/2015 6:00am Temperature Source Oral 10/23/2015 5:40pm Pulse Pulse Rate (adult) 76 bpm (60 - 100) 11/04/2015 11:00am Pulse Rate: ED 128 bpm 10/23/2015 8:15pm Apical Pulse Rate 66 bpm (60 - 90) 11/04/2015 10:12am Respiratory Rate 25 breaths per minute (10 - 20) 11/04/2015 6:00am Height (Feet) 5 ft 10/23/2015 9:30pm Height (Inches) 2.0 in. 10/23/2015 9:30pm Weight (Pounds) 122.9 lbs 11/03/2015 4:00am Height 5 ft 2 in Weight 122 lb Body Mass Index 22.5 kg/m^2 Ambulatory Vital Signs Vital Response Date/Time Weight 130 lbs 02/06/2015 3:08pm Blood Pressure, Sitting, Left Arm 122/70 mm Hg 02/06/2015 3:08pm Pulse Oximetry Pulse Oximetry 02/06/2015 3:08pm Results Pending Laboratory Results Test Name Collection Date/Time Pending Microbiology Results Procedure Source Collection Date/Time Procedures No known history of procedures. Encounters Encounter Location Arrival/Admit Date Discharge/Depart Date Attending Provider Discharged [facility] 10/23/15 7:58pm 11/04/15 12:20pm SCOTTIE SADLER [facility] Pedro LITTLE Registered [facility] 02/06/15 3:15pm LENO MIRANDA [facility] Office Visit LENO MIRANDA 02/06/15 3:00pm LENO MIRANDA M.D. Registered [facility] 02/06/15 3:00pm LENO MIRANDA M.D. Recent Diagnosis Bradycardia CONGESTIVE HEART FAILURE Encounter for long-term (current) use of other medications Hypotension Hypotension Hypoventilation Hypoxia Pneumonia Pneumonia Pulmonary HTN Respiratory failure, acute UTI (urinary tract infection) Urinary tract infection
[2018-04-28] MEDS: SALINE FLUSH 10ml SYRINGE IVF PRN (05:21)
[2018-04-28] MEDS ORDERED: FUROSEMIDE 20 MG/2 ML INJECTION IVP ONE ×2 (06:07→21:16)
[2018-04-28] MEDS ORDERED: LEVOFLOXACIN PB 750 MG/150 ML BAG IV SCH (06:15)
[2018-04-28] MEDS: NS 1,000 ML IV SCH (06:41)
--- NOTE | 2018-04-28 07:50 | XRay Report ---
Indication: AMS PROCEDURE: XR chest 1V: Encounter: Initial Comparison: None Findings: Emphysema. Interstitial prominence. Left lung bases obscured by overlapping soft tissues and an enlarged cardiac silhouette. Moderate sized hiatal hernia. No pneumothorax or right-sided effusion. There may be faint groundglass opacities present in the perihilar and right upper lobe. Cardiac silhouette is severely enlarged. Impression: Severe enlargement of cardiac silhouette could be due to cardiomegaly or pericardial effusion. Findings of emphysema and mild pulmonary edema. Underlying pneumonia cannot be excluded in the left lower lobe. PA and lateral chest radiographs may be helpful for further evaluation. .
--- NOTE | 2018-04-28 07:52 | CT Scan Report ---
Indication: AMS PROCEDURE: CT head/brain wo con: Encounter: Initial Comparison: None Technique: Axial CT images through the head were performed without contrast. Iterative Reconstruction dose reducing technique was utilized. FINDINGS: The ventricles are of normal size, shape, and contour for the patient's age. There are numerous areas of low attenuation in the white matter which most likely represent changes from chronic microvascular ischemia. There is possible cytotoxic edema in the left frontal lobe. The brainstem, cerebellum, and cerebral hemispheres otherwise have a normal morphology and CT attenuation. There is no evidence of midline displacement. No hemorrhage is evident. The visualized portions of the skull base, midface, and calvarium demonstrate no abnormality. The paranasal sinuses are well aerated and free of significant disease. The tympanic and mastoid cavities appear normal. IMPRESSION: Possible cytotoxic edema in the left frontal lobe could be due to acute or subacute ischemia. There is a preliminary report by [employer]. .
[2018-04-28 08:01] VITALS: BMI 24.1
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
[2018-04-28] MEDS ORDERED: ONDANSETRON 4 MG TABLET PO PRN (08:54)
--- NOTE | 2018-04-28 10:39 | Ultrasound Report ---
Indication: Edema PROCEDURE: US venous doppler LE BI: Encounter: Initial Comparison: None Technique: Color Doppler duplex and grayscale sonographic imaging of both lower extremities was performed. Findings: Diffuse subcutaneous edema. There is no evidence for acute deep venous thrombosis in either thigh. Specifically, serial graded compression was performed from the inguinal ligament to the popliteal bifurcation, bilaterally, demonstrating appropriate compressibility of the deep venous system. In addition, color and pulsed Doppler demonstrate appropriate spontaneous flow, variation with respiration, and augmentation with calf compression. At the ankle, normal flow is identified in the posterior tibial veins; these vessels are also normal in caliber. Impression: No evidence of acute DVT in either lower limb. .
[2018-04-28] MEDS: ENOXAPARIN 40 MG/0.4 ML INJECTION SQ SCH (12:36)
[2018-04-28] MEDS: SERTRALINE 25 MG TABLET PO SCH (12:36)
[2018-04-28] MEDS: ASPIRIN *EC* 81 MG TABLET PO SCH (12:36)
[2018-04-28] MEDS: DIGOXIN 125 MCG TABLET PO SCH (12:36)
[2018-04-28] MEDS ORDERED: ALBUTEROL/IPRATROPIUM 2.5mg-0.5mg/3ml NEB AEROSOL PRN (12:46)
--- NOTE | 2018-04-28 16:18 | Echocardiogram ---
DATE OF PROCEDURE April 28, [address] Aliya Owens This is a two-dimensional echo with spectral Doppler, color-flow and M-mode. It was obtained in a patient with history of congestive heart failure, CVA and lower extremity edema. This is a technically difficult study. Left atrium is dilated. Left ventricle end-diastolic dimension is normal. Left ventricle wall thickness is normal. LV systolic function is normal with ejection fraction of about 55%. Right atrium is dilated. Right ventricle is dilated and hypokinetic. Aortic root dimension is normal. Grossly there is no intracardiac thrombus or mass, however , this was a technically difficult study. Mitral valve is morphologically normal with trace of mitral regurgitation. Aortic valve is a trileaflet structure with no stenosis or insufficiency. Tricuspid valve shows mild tricuspid regurgitation with moderate pulmonary hypertension with estimated pulmonary artery systolic pressure of 53. Pulmonary valve shows trace of pulmonary insufficiency. There is no pericardial effusion. IMPRESSION 1. Technically difficult study. 2. Grossly no intracardiac thrombus or mass. 3. Normal LV systolic function with ejection fraction of 55%. 4. Biatrial dilation. 5. Right ventricular dilation and hypokinesia. 6. Trace of mitral regurgitation. 7. Mild tricuspid regurgitation with moderate pulmonary hypertension with estimated pulmonary artery systolic pressure of 53. 8. Trace of pulmonary insufficiency. MTDD
[2018-04-29] MEDS: NS 1,000 ML IV SCH ×2 (05:25→22:30)
[2018-04-29] MEDS: SERTRALINE 25 MG TABLET PO SCH (10:28)
[2018-04-29] MEDS: ASPIRIN *EC* 81 MG TABLET PO SCH (10:28)
[2018-04-29] MEDS: FUROSEMIDE 40 MG/4 ML INJECTION IVP SCH ×2 (10:29→22:28)
[2018-04-29] MEDS: LEVOFLOXACIN PB 750 MG/150 ML BAG IV SCH (10:29)
[2018-04-29] MEDS: ENOXAPARIN 40 MG/0.4 ML INJECTION SQ SCH (10:30)
[2018-04-29] MEDS: LEVOTHYROXINE 50 MCG TABLET PO SCH (10:31)
[2018-04-29] MEDS: DIGOXIN 125 MCG TABLET PO SCH (10:31)
--- NOTE | 2018-04-29 12:57 | Progress Note ---
- Date 04/29/18 Subjective: Suki is seen today in follow up. She is markedly improved from yesterday. Alert, pleasant. Verbal today, states she is feeling well. Chart is reviewed for collateral information. Objective Vital signs: Temperature 98 F 04/29/18 08:00 Pulse Rate 75 04/29/18 10:31 Respiratory Rate 20 04/29/18 08:00 Blood Pressure 127/68 04/29/18 08:00 Pulse Oximetry 100 04/29/18 08:00 Height/Weight/BMI: Height 1.68 m Weight 65.2 kg Body Mass Index 24.1 - Constitutional Present: no acute distress, average body habitus, cooperative - Routine HEENT Exam Head: Present: normocephalic, atraumatic ENT: Present: mucous membranes dry - Routine Respiratory Exam Present: CTA bilaterally. Absent: rales, rhonchi, wheezes - Routine Cardiovascular Exam Present: S1, S2, murmur, irregular rhythm, irregularly irregular - Routine Abdominal Exam Present: soft, normoactive bowel sounds, non distended, non tender - Routine Extremities Exam Present: edema (mild LE edema, some redness to lower legs as well, mild. Edema is better. ) - Routine Musculoskeletal Exam Musculoskeletal: Present: moving extremities well - Routine Skin Exam Present: intact, erythema (Mild Le. ), dry, warm - Routine Neurological Exam Present: alert, moving all extremities. Absent: oriented X3 Chronic dementia, but markedly improved today. - Routine Psychiatric Exam Present: cooperative Results - Labs CBC & Chem 7: 04/29/18 06:36 04/29/18 06:36 - Echocardiogram History of Echocardiogram: IMPRESSION. 1. Technically difficult study. 2. Grossly no intracardiac thrombus or mass. 3. Normal LV systolic function with ejection fraction of 55%. 4. Biatrial dilation. 5. Right ventricular dilation and hypokinesia. 6. Trace of mitral regurgitation. 7. Mild tricuspid regurgitation with moderate pulmonary hypertension with estimated pulmonary artery systolic pressure of 53. 8. Trace of pulmonary insufficiency. - Imaging and Cardiology Venous US Status: image reviewed by me Additional comments: Impression: No evidence of acute DVT in either lower limb. . Assessment and Plan (1) CVA (cerebral vascular accident) Current visit: Yes Status: Acute Assessment and Plan: Impression: Altered mental status, multifactorial Subacute left frontal stroke with surrounding edema Urinary tract infection, complicated versus chronic bacteriuria Acute respiratory failure, hypoxic Heart failure, unknown ejection fraction COPD Atrial Fib, high risk of anticoagulation Chronic dementia with behavioral dyscontrol Hypothyroidism Mild WAYNE Bilateral LE edema. Plan: Patient has significantly improved overnight. Much more alert, pleasant, conversive. Urine cx did show E.Coli > 100k. Will resume Levaquin for treatment. Await final culture. Breathing is much better. Weight down almost 10kg overnoc. Continue IV Lasix today, and change back to oral Lasix at home dosing in AM. Continue to hold metoprolol as BP is low normal. Watch HR. Continue dig. May need to up dig if HR becomes elevated. Edema is improved. Legs are still mildly reddened- monitor. Doppler was negative for DVT. Repeat labs in AM for stability. Resuscitation Status: Full Code - Physician Narrative Physician: Aliya Owens MD Narrative: Date: 04/29/18 Time: 1605 I have independently evaluated and examined this patient. I reviewed the chart, the patient's history, and the SANDWICH MACHINE OPERATOR/PA's documented findings as above. We discussed and formulated the assessment and plan as above with additions as below: Mrs. Grant was resting comfortably when seen; she initially nodded yes/no to questions and then advised me that she wanted something to drink and would like a Coke. She subsequently answer questions verbally indicating she didn't know where she was and that should like something to eat and drink. She apologized to the nurse who was at bedside when she heard that she had taken a swelling at the nurse early this morning when she was receiving care. The patient was completely appropriate in responses and denied dyspnea, nausea, or pain at time of my assessment. She remains on 4 L of oxygen. Weight is down 4 kg from an initial weight in the emergency room, 2 kg from weight on arrival on the medical unit yesterday. Respirations are nonlabored but breath sounds are coarse, no wheezing was appreciated EOMI, tongue midline, moving all extremities well with symmetric power, normal motor tone ProBNP remains elevated, repeat chest x-ray in the morning. Preserved ejection fraction noted with right atrial/right ventricular dilatation and hypokinesis. No pericardial effusion, moderate pulmonary hypertension. HCO3 increased from 32-37, patient may have chronic hypercarbia. Monitor closely but may require ABG. Speech reevaluated in light of improved mental status-mechanical soft diet initiated with nectar thickened liquids. Have left message for guardian to discuss extent of workup. Hospital Course Summary Disclaimer: The visit summary below is not to be considered part of the above Progress Note. Hospital Course: Impression: Altered mental status, multifactorial Subacute left frontal stroke with surrounding edema Urinary tract infection, complicated versus chronic bacteriuria Acute respiratory failure, hypoxic Heart failure, unknown ejection fraction COPD Atrial Fib, high risk of anticoagulation Chronic dementia with behavioral dyscontrol Hypothyroidism Mild WAYNE Bilateral LE edema. Plan: admit, inpatient. Workup of stroke will be somewhat limited due to patient's severe dementia. She is quite agitated with basic cares, I do not believe she will hold still for us to get an MRI. We may want to consider serial CT of the head instead. We'll obtain an echo today to establish baseline EF. Assess bilateral lower extremity venous Doppler due to edema, however I suspect the stroke may be due to her atrial fib. Increase her aspirin to 325 mg by mouth daily. Assess lipid panel. Due to her advanced age and significant dementia, will hold off on statin therapy at this point. Will ask speech therapy to evaluate patient. I don 't believe she has the cognitive status to work with physical or occupational therapy. She does have some edema, however on labs she appears mildly dry. She did get 20mg of Lasix in the ER, but is currently on gentle IV fluids. We'll need to monitor her fluid status closely. O2 sats are documented down to 73% on room air following her admission. Will DC the IV fluids, and provide diuresis. Levaquin 750mg given in ER for UTI, possible pneumonia. Will hold off on future doses due to dementia, behavioral changes, and cerebral edema. Await urinary cultures to further delineate abx need. She does not appear septic. Afebrile, normal WBC count. Patient is noted to be a full code. Due to her severe dementia, we will need to further discuss with her DPOA regarding their wishes on aggressive care versus a more palliative approach. I did discuss this patient with Dr. Owens following admission Patient has significantly improved overnight. Much more alert, pleasant, conversive. Urine cx did show E.Coli > 100k. Will resume Levaquin for treatment. Await final culture. Breathing is much better. Weight down almost 10kg overnoc. Continue IV Lasix today, and change back to oral Lasix at home dosing in AM. Continue to hold metoprolol as BP is low normal. Watch HR. Continue dig. May need to up dig if HR becomes elevated. Edema is improved. Legs are still mildly reddened- monitor. Doppler was negative for DVT. Repeat labs in AM for stability.
[2018-04-30] MEDS: NS 1,000 ML IV SCH ×2 (03:44→19:35)
[2018-04-30] MEDS: DIGOXIN 125 MCG TABLET PO SCH (10:19)
[2018-04-30] MEDS: FUROSEMIDE 40 MG TABLET PO SCH (10:21)
[2018-04-30] MEDS: ASPIRIN *EC* 81 MG TABLET PO SCH ×2 (10:21→10:46)
[2018-04-30] MEDS: LEVOFLOXACIN PB 750 MG/150 ML BAG IV SCH (10:22)
[2018-04-30] MEDS: SERTRALINE 25 MG TABLET PO SCH (10:23)
[2018-04-30] MEDS: LEVOTHYROXINE 50 MCG TABLET PO SCH (10:24)
[2018-04-30] MEDS: ENOXAPARIN 40 MG/0.4 ML INJECTION SQ SCH ×2 (10:25→10:40)
--- NOTE | 2018-04-30 12:35 | XRay Report ---
Indication: CHF/cardiomegaly PROCEDURE: XR chest 1V: Encounter: Initial Comparison: April 28, 2018 Findings: Interstitial prominence is again noted. No focal lobar consolidation. No pneumothorax. Possible small left pleural effusion. Cardiac silhouette remains enlarged. Mediastinal contours are stable. Pulmonary vascularity is prominent. Impression: Continued evidence of mild to moderate CHF without significant change. .
--- NOTE | 2018-04-30 13:42 | Progress Note ---
- Date 04/30/18 Subjective: Suki is seen in follow up. She is alert, eating lunch. Reports feeling well, remembers that she is in the hospital. She reports that on discharge that "I will have to look into getting some help. I know I need it!" (She lives in a NH). She has no c/o today. Objective Vital signs: Temperature 98.1 F 04/30/18 08:46 Pulse Rate 77 04/30/18 10:19 Respiratory Rate 20 04/30/18 08:46 Blood Pressure 105/74 04/30/18 08:46 Pulse Oximetry 94 04/30/18 08:46 Height/Weight/BMI: Height 1.68 m Weight 63 kg Body Mass Index 24.1 - Constitutional Present: no acute distress, well nourished, well developed, cooperative - Routine HEENT Exam Head: Present: normocephalic, atraumatic Eye: Present: EOMI, PERRL ENT: Present: mucous membranes moist. Absent: dentition normal - Routine Respiratory Exam Present: CTA bilaterally. Absent: rales, rhonchi, wheezes - Routine Cardiovascular Exam Present: S1, S2, no murmur, irregular rhythm, irregularly irregular - Routine Abdominal Exam Present: soft, normoactive bowel sounds, non distended, non tender - Routine Extremities Exam Present: edema (Trace LE edema. ), non tender - Routine Musculoskeletal Exam Musculoskeletal: Present: moving extremities well - Routine Skin Exam Present: intact, dry, warm - Routine Neurological Exam Present: alert, moving all extremities - Routine Psychiatric Exam Present: cooperative. Absent: good insight, good judgment Results - Labs CBC & Chem 7: 04/30/18 04:27 04/30/18 04:27 - Imaging and Cardiology Chest x-ray Additional comments: Impression: Continued evidence of mild to moderate CHF without significant change. . Assessment and Plan (1) CVA (cerebral vascular accident) Current visit: Yes Status: Acute Assessment and Plan: Impression: Altered mental status, multifactorial Subacute left frontal stroke with surrounding edema Urinary tract infection, complicated versus chronic bacteriuria Acute respiratory failure, hypoxic Heart failure, unknown ejection fraction COPD Atrial Fib, high risk of anticoagulation Chronic dementia with behavioral dyscontrol Hypothyroidism Mild WAYNE Bilateral LE edema. Plan: 04/30/18 Suki continues to improve. Her weight is down another 2 kg. Mild increase in CO2- likely contraction alkalosis from diuresis. Lasix changed back to daily oral dosing. Repeat labs in AM. Was not cooperative for ABG this morning. Continue Levaquin for significant UTI. She seems to be tolerating it well at this point. She remains in known atrial fib. Holding metoprolol. Continue digoxin. Restart BB when BP will allow. ASA only due to high risk for anticoagulation. No severe symptoms from stroke discovered on admission. Continue supportive care. Potential DC back to NH in next 1-2 days. DVT Prophylaxis: Lovenox Resuscitation Status: Full Code - Physician Narrative Physician: Aliya Owens MD Narrative: Date: 04/30/18 Time: 1624 I have independently evaluated and examined this patient. I reviewed the chart, the patient's history, and the [employer]IVER/PA's documented findings as above. We discussed and formulated the assessment and plan as above with additions as below: Mrs. Grant reported that she was weak and that her breathing felt weak when she was seen earlier today. Her speech was mumbled and many of her answers could not be understood well although she indicated she enjoyed lunch. Nursing reports that she's had a small stool and is voiding without difficulty and patient denies dysuria. Weight is down 6 kg from admission. Patient became aggressive with respiratory therapy earlier today. NAD, calm when seen this afternoon Respirations nonlabored, anterior breath sounds relatively clear but there are crackles at the bases bilaterally in the posterior pendleton +1 edema, minor erythema distal shins bilaterally Chest x-ray reviewed by myself-marked cardiomegaly, mild CHF-minimal change from admission Mild hypercarbia on admission which is increased with diuresis. Unable to obtain blood gas earlier, titrate oxygen, decreased diuresis. Reconsider blood gas tomorrow. Will attempt contact guardian tomorrow to discuss further neuro imaging. Discussed with nursing and respiratory therapy. Telemetry strips reviewed-atrial fibrillation with controlled rate. Day 3 Levaquin. Hospital Course Summary Disclaimer: The visit summary below is not to be considered part of the above Progress Note. Hospital Course: Impression: Altered mental status, multifactorial Subacute left frontal stroke with surrounding edema Urinary tract infection, complicated versus chronic bacteriuria Acute respiratory failure, hypoxic Heart failure, unknown ejection fraction COPD Atrial Fib, high risk of anticoagulation Chronic dementia with behavioral dyscontrol Hypothyroidism Mild WAYNE Bilateral LE edema. Plan: admit, inpatient. Workup of stroke will be somewhat limited due to patient's severe dementia. She is quite agitated with basic cares, I do not believe she will hold still for us to get an MRI. We may want to consider serial CT of the head instead. We'll obtain an echo today to establish baseline EF. Assess bilateral lower extremity venous Doppler due to edema, however I suspect the stroke may be due to her atrial fib. Increase her aspirin to 325 mg by mouth daily. Assess lipid panel. Due to her advanced age and significant dementia, will hold off on statin therapy at this point. Will ask speech therapy to evaluate patient. I don 't believe she has the cognitive status to work with physical or occupational therapy. She does have some edema, however on labs she appears mildly dry. She did get 20mg of Lasix in the ER, but is currently on gentle IV fluids. We'll need to monitor her fluid status closely. O2 sats are documented down to 73% on room air following her admission. Will DC the IV fluids, and provide diuresis. Levaquin 750mg given in ER for UTI, possible pneumonia. Will hold off on future doses due to dementia, behavioral changes, and cerebral edema. Await urinary cultures to further delineate abx need. She does not appear septic. Afebrile, normal WBC count. Patient is noted to be a full code. Due to her severe dementia, we will need to further discuss with her DPOA regarding their wishes on aggressive care versus a more palliative approach. I did discuss this patient with Dr. Owens following admission Patient has significantly improved overnight. Much more alert, pleasant, conversive. Urine cx did show E.Coli > 100k. Will resume Levaquin for treatment. Await final culture. Breathing is much better. Weight down almost 10kg overnoc. Continue IV Lasix today, and change back to oral Lasix at home dosing in AM. Continue to hold metoprolol as BP is low normal. Watch HR. Continue dig. May need to up dig if HR becomes elevated. Edema is improved. Legs are still mildly reddened- monitor. Doppler was negative for DVT. Repeat labs in AM for stability. 04/30/18 Suki continues to improve. Her weight is down another 2 kg. Mild increase in CO2- likely contraction alkalosis from diuresis. Lasix changed back to daily oral dosing. Repeat labs in AM. Was not cooperative for ABG this morning. Continue Levaquin for significant UTI. She seems to be tolerating it well at this point. She remains in known atrial fib. Holding metoprolol. Continue digoxin. Restart BB when BP will allow. ASA only due to high risk for anticoagulation. No severe symptoms from stroke discovered on admission. Continue supportive care. Potential DC back to NH in next 1-2 days.
[2018-05-01] MEDS: NS 1,000 ML IV SCH ×2 (00:03→22:42)
[2018-05-01] MEDS: LEVOTHYROXINE 50 MCG TABLET PO SCH (05:40)
[2018-05-01] MEDS: LEVOFLOXACIN PB 750 MG/150 ML BAG IV SCH (08:28)
[2018-05-01] MEDS: FUROSEMIDE 40 MG TABLET PO SCH (08:28)
[2018-05-01] MEDS: SALINE FLUSH 10ml SYRINGE IVF PRN ×2 (08:28→18:17)
[2018-05-01] MEDS: ENOXAPARIN 40 MG/0.4 ML INJECTION SQ SCH (08:28)
[2018-05-01] MEDS: ASPIRIN *EC* 81 MG TABLET PO SCH (08:29)
[2018-05-01] MEDS: DIGOXIN 125 MCG TABLET PO SCH (08:29)
[2018-05-01] MEDS: SERTRALINE 25 MG TABLET PO SCH (08:29)
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
[2018-05-01] MEDS ORDERED: FUROSEMIDE 20 MG/2 ML INJECTION IVP ONE (17:33)
[2018-05-01] MEDS: acetaZOLAMIDE 500 MG INJECTION IV SCH (18:17)
[2018-05-02] MEDS: ENOXAPARIN 40 MG/0.4 ML INJECTION SQ SCH (09:08)
[2018-05-02] MEDS: FUROSEMIDE 40 MG TABLET PO SCH (09:09)
[2018-05-02] MEDS: SERTRALINE 25 MG TABLET PO SCH (09:09)
[2018-05-02] MEDS: LEVOTHYROXINE 50 MCG TABLET PO SCH (09:09)
[2018-05-02] MEDS: ASPIRIN *EC* 325 MG TABLET PO SCH (09:09)
[2018-05-02] MEDS: acetaZOLAMIDE 500 MG INJECTION IV SCH (09:10)
[2018-05-02] MEDS: SALINE FLUSH 10ml SYRINGE IVF PRN (09:10)
[2018-05-02] MEDS: LEVOFLOXACIN PB 750 MG/150 ML BAG IV SCH (09:11)
[2018-05-02] MEDS: DIGOXIN 125 MCG TABLET PO SCH (09:12)
--- NOTE | 2018-05-02 11:47 | Progress Note ---
- Date 05/02/18 Subjective: Patient seen this am while being fed breakfast. She will look at me but will not respond to questions. Nurse aid reports pt has been nonverbal with her today thus far. She will follow commands such as taking a deep breath. She hasn't been eating much and spent most of the day in bed yesterday. Objective Vital signs: Temperature 96.8 F 05/02/18 08:56 Pulse Rate 76 05/02/18 09:12 Respiratory Rate 20 05/02/18 08:56 Blood Pressure 107/59 05/02/18 08:56 Pulse Oximetry 97 05/02/18 08:56 Height/Weight/BMI: Height 1.68 m Weight 62.9 kg Body Mass Index 24.1 - Constitutional Present: no acute distress - Routine HEENT Exam Head: Present: normocephalic, atraumatic - Routine Respiratory Exam Present: crackles (b/l bases) - Routine Cardiovascular Exam Present: irregularly irregular - Routine Abdominal Exam Present: soft, non distended, non tender - Routine Extremities Exam Present: edema (trace) - Routine Neurological Exam Present: alert. Absent: normal speech (nonverbal during interview) - Routine Psychiatric Exam Present: unable to assess Results - Labs CBC & Chem 7: 05/02/18 05:09 05/02/18 05:09 Assessment and Plan (1) CVA (cerebral vascular accident) Current visit: Yes Status: Acute Assessment and Plan: Impression Altered mental status, multifactorial Subacute left frontal stroke with surrounding edema Urinary tract infection - E coli Acute respiratory failure, hypoxic Heart failure - EF 55% Moderate pulmonary hypertension with estimated pulmonary artery systolic pressure of 53 COPD Atrial Fib, high risk of anticoagulation Chronic dementia with behavioral dyscontrol Hypothyroidism Mild WAYNE -resolved Stage II CKD Bilateral LE edema Plan Weight is down over 6 kg since admission. Continues to require 3 L O2 (no O2 requirements at home). Single dose of Diamox given yesterday and today. CO2 42-->36-->33. She has completed 5 days of Levaquin for UTI today. Labs and VS's stable DVT Prophylaxis: Lovenox Resuscitation Status: Full Code - Time spent with patient Time with patient PN: 25 minutes - Physician Narrative Physician: Dmitri Pulido MD Narrative: Date: 05/02/18 Time: 1420 Have independently interviewed and examined pt. Chart reviewed. Case discussed with my PA. Care plan developed with my supervision; agree with above. Sitting in bed, lunch in front of her (looks like at poorly). Would interact verbally, but resistant to answering questions. Maintaining saturations on 3L. Creatinine stable. CO2 still elevated, but with decrease from prior days. Weight trending down. Lungs: decreased, no distress CV: irregularly irregular AB: soft nt/nd MSE: awake, appears paranoid Plan: will stop IVF. IV Diamox given this am, will give oral dose this afternoon. Can stop antibiotics. Work to wean off O2. Recheck lab tomorrow. Hospital Course Summary Disclaimer: The visit summary below is not to be considered part of the above Progress Note. Hospital Course: Impression: Altered mental status, multifactorial Subacute left frontal stroke with surrounding edema Urinary tract infection, complicated versus chronic bacteriuria Acute respiratory failure, hypoxic Heart failure, unknown ejection fraction COPD Atrial Fib, high risk of anticoagulation Chronic dementia with behavioral dyscontrol Hypothyroidism Mild WAYNE Bilateral LE edema. Plan: \ admit, inpatient. Workup of stroke will be somewhat limited due to patient's severe dementia. She is quite agitated with basic cares, I do not believe she will hold still for us to get an MRI. We may want to consider serial CT of the head instead. We'll obtain an echo today to establish baseline EF. Assess bilateral lower extremity venous Doppler due to edema, however I suspect the stroke may be due to her atrial fib. Increase her aspirin to 325 mg by mouth daily. Assess lipid panel. Due to her advanced age and significant dementia, will hold off on statin therapy at this point. Will ask speech therapy to evaluate patient. I don 't believe she has the cognitive status to work with physical or occupational therapy. She does have some edema, however on labs she appears mildly dry. She did get 20mg of Lasix in the ER, but is currently on gentle IV fluids. We'll need to monitor her fluid status closely. O2 sats are documented down to 73% on room air following her admission. Will DC the IV fluids, and provide diuresis. Levaquin 750mg given in ER for UTI, possible pneumonia. Will hold off on future doses due to dementia, behavioral changes, and cerebral edema. Await urinary cultures to further delineate abx need. She does not appear septic. Afebrile, normal WBC count. Patient is noted to be a full code. Due to her severe dementia, we will need to further discuss with her DPOA regarding their wishes on aggressive care versus a more palliative approach. Guardian: Ashley Kenney [phone]. 04/29/18 Patient has significantly improved overnight. Much more alert, pleasant, conversive. Urine cx did show E.Coli > 100k. Will resume Levaquin for treatment. Await final culture. Breathing is much better. Weight down almost 4 kg overnoc. Continue IV Lasix today, and change back to oral Lasix at home dosing in AM. Continue to hold metoprolol as BP is low normal. Watch HR. Continue dig. May need to up dig if HR becomes elevated. Edema is improved. Legs are still mildly reddened- monitor. Doppler was negative for DVT. Repeat labs in AM for stability. 04/30/18 Suki continues to improve. Her weight is down another 2 kg. Mild increase in CO2- likely contraction alkalosis from duresis. Lasix changed back to daily oral dosing. Repeat labs in AM. Was not cooperative for ABG this morning. Continue Levaquin for significant UTI. She seems to be tolerating it well at this point. She remains in known atrial fib. Holding metoprolol. Continue digoxin. Restart BB when BP will allow. ASA only due to high risk for anticoagulation. No severe symptoms from stroke discovered on admission. Continue supportive care. Potential DC back to NH in next 1-2 days. 05/01/18 Continues to have variable behaviors; discussed with guardian who reports that patient is intermittently agitated/combative at the nursing facility. Additionally discussed question of frontal CVA on initial CT and whether to pursue additional workup, guardian felt patient's underlying disease compromises her function enough that further workup was not warranted. She is aware that aspirin dose was increased on admission and response to CT findings and that the CT finding may all be artifactual. HCO3 better today after Lasix dose decreased but minimal change in weight and continues to require 3 L O2. Single dose of Diamox to be given today to help with alkalosis and promote diuresis in conjunction with IV Lasix now. Day 4 Levaquin for UTI, discontinue after 5 days. Blood pressure and heart rate stable off metoprolol. 05/02/18 Weight is down over 6 kg since admission. Continues to require 3 L O2 (no O2 requirements at home). Single dose of IV Diamox 250mg given yesterday and this am. CO2 42-->36-->33. Will give additional 500mg po this afternoon. D/C IVF. She has completed 5 days of Levaquin for UTI today - can stop Levaquin. Labs and VS's stable. Restart home metoprolol tomorrow.
[2018-05-02] MEDS: NS 1,000 ML IV SCH (13:32)
[2018-05-02] MEDS ORDERED: acetaZOLAMIDE SR 500 MG CAPSULE PO ONE (16:00)
[2018-05-03] MEDS: DIGOXIN 125 MCG TABLET PO SCH (08:50)
[2018-05-03] MEDS: LEVOTHYROXINE 50 MCG TABLET PO SCH (08:51)
[2018-05-03] MEDS: SERTRALINE 25 MG TABLET PO SCH (08:51)
[2018-05-03] MEDS: ASPIRIN *EC* 325 MG TABLET PO SCH (08:51)
[2018-05-03] MEDS: ENOXAPARIN 40 MG/0.4 ML INJECTION SQ SCH (08:52)
[2018-05-03] MEDS: FUROSEMIDE 40 MG TABLET PO SCH (08:52)
[2018-05-03] MEDS ORDERED: FALL RISK - PHARMACY CONSULT MC ONE (09:22)
--- NOTE | 2018-05-03 10:01 | XRay Report ---
INDICATION: F/U pulm edema PROCEDURE: CHEST 2-VIEWS UPRIGHT (PA & LAT) Encounter: Initial COMPARISON: April 30, 2018 FINDINGS: Improving aeration of the lungs with decreasing groundglass opacities. No new or worsening airspace consolidation. Trace left effusion is smaller. No pneumothorax. Cardiac silhouette remains significantly enlarged. Mediastinal contours are stable. Impression: Improving congestive failure. .
--- NOTE | 2018-05-03 11:10 | Progress Note ---
- Date 05/03/18 Subjective: F/U: Subacute left frontal stroke, Urinary tract infection - E coli, Acute hypoxic respiratory failure Resting in bed. Ate about 50% of breakfast. When asked how the morning is going reports 'too early to tell, let me go back to sleep.' O2 decreased to 1L - saturations will decrease to 86% on RA. WBC normal. No temp elevations. Objective Vital signs: Temperature 99.2 F 05/03/18 07:17 Pulse Rate 86 05/03/18 08:54 Respiratory Rate 16 05/03/18 07:17 Blood Pressure 108/52 05/03/18 08:54 Pulse Oximetry 86 L 05/03/18 11:06 Rhythm: Atrial Fibrillation with Normal Ventricular Rate Height/Weight/BMI: Height 1.68 m Weight 59.1 kg Body Mass Index 24.1 - Constitutional Present: well nourished, well developed, average body habitus - Routine HEENT Exam Head: Present: normocephalic, atraumatic ENT: Present: mucous membranes moist - Routine Respiratory Exam Present: decreased breath sounds. Absent: rales, respiratory distress, rhonchi , wheezes, crackles - Routine Cardiovascular Exam Present: irregular rhythm, irregularly irregular - Routine Abdominal Exam Present: soft, non distended, non tender. Absent: normoactive bowel sounds ( Decreased), guarding - Routine Extremities Exam Present: edema (Trace BLE). Absent: cyanosis, clubbing - Routine Musculoskeletal Exam Musculoskeletal: Present: no clubbing or cyanosis - Routine Skin Exam Present: dry, warm - Routine Neurological Exam Present: moving all extremities, vision grossly intact, hearing grossly intact. Absent: motor deficit - Routine Psychiatric Exam Comments: Sleepy, not agitated Results - Labs CBC & Chem 7: 05/03/18 04:39 05/03/18 04:39 Assessment and Plan (1) CVA (cerebral vascular accident) Current visit: Yes Status: Acute Assessment and Plan: Impression Altered mental status, multifactorial Subacute left frontal stroke with surrounding edema Urinary tract infection - E coli Acute respiratory failure, hypoxic Acute on chronic diastolic heart failure - EF 55% Moderate pulmonary hypertension with estimated pulmonary artery systolic pressure of 53 COPD Atrial Fib, high risk of anticoagulation Chronic dementia with behavioral dyscontrol Hypothyroidism Mild WAYNE -resolved Stage II CKD Bilateral LE edema Plan Respiratory status improving - O2 need decreased to 1L. CXR showing improvement of edema. Lab stable. With resolution of UTI and improving respiratory and mental status, can discharge to [facility] for continuation of care. PT/OT/Speech to help maximize functional status. Continue [facility] Soft diet with Syrup thick liquids. F/U with Dr Woods in 1 week. See orders for details. Case discussed with CM. Time spent with patient care and discharge greater than 30 minutes. Resuscitation Status: Full Code - Physician Narrative Physician: Dmitri Pulido MD Narrative: Date: 05/03/18 Time: 1107 Hospital Course Summary Disclaimer: The visit summary below is not to be considered part of the above Progress Note. Hospital Course: Impression: Altered mental status, multifactorial Subacute left frontal stroke with surrounding edema Urinary tract infection, complicated versus chronic bacteriuria Acute respiratory failure, hypoxic Heart failure, unknown ejection fraction COPD Atrial Fib, high risk of anticoagulation Chronic dementia with behavioral dyscontrol Hypothyroidism Mild WAYNE Bilateral LE edema. Plan: admit, inpatient. Workup of stroke will be somewhat limited due to patient's severe dementia. She is quite agitated with basic cares, I do not believe she will hold still for us to get an MRI. We may want to consider serial CT of the head instead. We'll obtain an echo today to establish baseline EF. Assess bilateral lower extremity venous Doppler due to edema, however I suspect the stroke may be due to her atrial fib. Increase her aspirin to 325 mg by mouth daily. Assess lipid panel. Due to her advanced age and significant dementia, will hold off on statin therapy at this point. Will ask speech therapy to evaluate patient. I don 't believe she has the cognitive status to work with physical or occupational therapy. She does have some edema, however on labs she appears mildly dry. She did get 20mg of Lasix in the ER, but is currently on gentle IV fluids. We'll need to monitor her fluid status closely. O2 sats are documented down to 73% on room air following her admission. Will DC the IV fluids, and provide diuresis. Levaquin 750mg given in ER for UTI, possible pneumonia. Will hold off on future doses due to dementia, behavioral changes, and cerebral edema. Await urinary cultures to further delineate abx need. She does not appear septic. Afebrile, normal WBC count. Patient is noted to be a full code. Due to her severe dementia, we will need to further discuss with her DPOA regarding their wishes on aggressive care versus a more palliative approach. Guardian: Ashley Kenney [phone]. 04/29/18 Patient has significantly improved overnight. Much more alert, pleasant, conversive. Urine cx did show E.Coli > 100k. Will resume Levaquin for treatment. Await final culture. Breathing is much better. Weight down almost 4 kg overnoc. Continue IV Lasix today, and change back to oral Lasix at home dosing in AM. Continue to hold metoprolol as BP is low normal. Watch HR. Continue dig. May need to up dig if HR becomes elevated. Edema is improved. Legs are still mildly reddened- monitor. Doppler was negative for DVT. Repeat labs in AM for stability. 04/30/18 Suki continues to improve. Her weight is down another 2 kg. Mild increase in CO2- likely contraction alkalosis from duresis. Lasix changed back to daily oral dosing. Repeat labs in AM. Was not cooperative for ABG this morning. Continue Levaquin for significant UTI. She seems to be tolerating it well at this point. She remains in known atrial fib. Holding metoprolol. Continue digoxin. Restart BB when BP will allow. ASA only due to high risk for anticoagulation. No severe symptoms from stroke discovered on admission. Continue supportive care. Potential DC back to NH in next 1-2 days. 05/01/18 Continues to have variable behaviors; discussed with guardian who reports that patient is intermittently agitated/combative at the nursing facility. Additionally discussed question of frontal CVA on initial CT and whether to pursue additional workup, guardian felt patient's underlying disease compromises her function enough that further workup was not warranted. She is aware that aspirin dose was increased on admission and response to CT findings and that the CT finding may all be artifactual. HCO3 better today after Lasix dose decreased but minimal change in weight and continues to require 3 L O2. Single dose of Diamox to be given today to help with alkalosis and promote diuresis in conjunction with IV Lasix now. Day 4 Levaquin for UTI, discontinue after 5 days. Blood pressure and heart rate stable off metoprolol. 05/02/18 Weight is down over 6 kg since admission. Continues to require 3 L O2 (no O2 requirements at home). Single dose of IV Diamox 250mg given yesterday and this am. CO2 42-->36-->33. Will give additional 500mg po this afternoon. D/C IVF. She has completed 5 days of Levaquin for UTI today - can stop Levaquin. Labs and VS's stable. Restart home metoprolol tomorrow. 05/03/18 Respiratory status improving - O2 need decreased to 1L. CXR showing improvement of edema. Lab stable. With resolution of UTI and improving respiratory and mental status, can discharge to [facility] for continuation of care. PT/OT/Speech to help maximize functional status. Continue [facility] Soft diet with Syrup thick liquids. F/U with Dr Woods in 1 week. See orders for details.
--- NOTE | 2018-05-03 15:43 | Extended Care Facility Orders ---
Admission Orders Admit to:: Long-Term Allergies/Adverse Reactions: Allergies Cephalosporins Allergy (Verified 04/28/18 05:03) Sulfonylureas Allergy (Verified 04/28/18 05:03) Admitting Diagnosis: CVA,UTI,CHF exacerbation Admitting Physician: Dmitri Pulido MD Attending Physician: Dr Woods Code Status: Full Code Anticiapted Length of Stay: 30 days or less Rehab Potential: fair Rehab Prognosis: fair Diet: Mechanical soft with syrup thick liquids Wound/Incision Care: Apply bandages to skin tears as needed. May use Facility Protocol or Standing Orders: Yes May have flu vaccine: Yes Evaluations/Treatment: Speech, PT, OT Long-Term Certification: I certify that SNF services are required to be given on an Inpatient basis because of the patients need for detention care on a continuing basis for the condition(s) for which he/she received inpatient hospital services prior to his/her transfer to the SNF. SNF inpatient care is necessary for the following reasons Indication for Long-Term: Med Admininistration, Teach Medication Management, Teach CHF, Other (Skilled PT/OT/Speech to maximize functional status ) - Additional Information In Event of Arrest: Start CPR,call 911,send patient to the ER Resident is Aware of Diagnosis: No (Dementia limits ) Referrals: Ayana Woods MD [Primary Care Provider] - 1 Week ([facility] follow up for CVA, UTI, CHF exacerbation) Additional Orders: O2 to keep sats greater than 90% -- 1-2L currently; wean as able.
[2018-05-03 15:45] VITALS: BP 71/42; PULSE 76; RESP 24; TEMP 98; O2SAT 90
--- NOTE | 2018-05-03 21:09 | Discharge Summary ---
Discharge Information Date of admission: 04/28/18 07:04 Anticipated date of discharge: 05/03/18 Attending Physician: Dmitri Pulido MD Primary care physician: Ayana Woods MD Consults: PT/O/Speech - Discharge Diagnosis (1) CVA (cerebral vascular accident) Status: Acute Admission diagnosis Altered mental status, multifactorial Discharge diagnosis Subacute left frontal stroke with surrounding edema Associated conditions and complications Urinary tract infection - E coli Acute respiratory failure, hypoxic Acute on chronic diastolic heart failure - EF 55% Moderate pulmonary hypertension with estimated pulmonary artery systolic pressure of 53 COPD Atrial Fib, high risk of anticoagulation Chronic dementia with behavioral dyscontrol Hypothyroidism Mild WAYNE -resolved Stage II CKD Bilateral LE edema - Procedures Procedures: Date of Exam: 04/28/18 Type of Exam: US ECHO Doppler complete This is a technically difficult study. Left atrium is dilated. Left ventricle end-diastolic dimension is normal. Left ventricle wall thickness is normal. LV systolic function is normal with ejection fraction of about 55%. Right atrium is dilated. Right ventricle is dilated and hypokinetic. Aortic root dimension is normal. Grossly there is no intracardiac thrombus or mass, however , this was a technically difficult study. Mitral valve is morphologically normal with trace of mitral regurgitation. Aortic valve is a trileaflet structure with no stenosis or insufficiency. Tricuspid valve shows mild tricuspid regurgitation with moderate pulmonary hypertension with estimated pulmonary artery systolic pressure of 53. Pulmonary valve shows trace of pulmonary insufficiency. There is no pericardial effusion. IMPRESSION 1. Technically difficult study. 2. Grossly no intracardiac thrombus or mass. 3. Normal LV systolic function with ejection fraction of 55%. 4. Biatrial dilation. 5. Right ventricular dilation and hypokinesia. 6. Trace of mitral regurgitation. 7. Mild tricuspid regurgitation with moderate pulmonary hypertension with estimated pulmonary artery systolic pressure of 53. 8. Trace of pulmonary insufficiency. - Laboratory Labs: Admit Lab 04/28/18 05:24 WBC 5.6 Hgb 12.2 Hct 40.0 MCV 97.1 Plt Count 170 Neut % (Auto) 62.7 Lymph % (Auto) 24.6 Jewell % (Auto) 11.2 H Eos % (Auto) 1.1 Baso % (Auto) 0.4 Admit Lab 04/28/18 05:25 Sodium 141 Potassium 5.2 H Chloride 100 Carbon Dioxide 32 H Anion Gap 9 BUN 24.0 H Creatinine 0.5 L GFR Calculation 118 BUN/Creatinine Ratio 48 H Glucose 90 Calculated Osmolality 275 Calcium 8.5 Total Bilirubin 0.90 AST 23 ALT 19 Alkaline Phosphatase 66 Troponin I < 0.012 NT-Pro-B Natriuret Pep 1480 H Total Protein 6.5 Albumin 3.8 Globulin 2.7 Albumin/Globulin Ratio 1.4 TSH 4.64 Lipid Profile 04/28/18 06:26 Triglycerides 45 Cholesterol 117 L LDL Cholesterol, Calc 58.0 L VLDL Cholesterol 9.0 HDL Cholesterol 50 Cholesterol/HDL Ratio 2.3 05/03/18 04:39 05/03/18 04:39 - Microbiology Urine culture with E coli - no resistance - Radiology Radiology: Date of Exam: 04/28/18 Type of Exam: XR chest 1V Findings: Emphysema. Interstitial prominence. Left lung bases obscured by overlapping soft tissues and an enlarged cardiac silhouette. Moderate sized hiatal hernia. No pneumothorax or right-sided effusion. There may be faint groundglass opacities present in the perihilar and right upper lobe. Cardiac silhouette is severely enlarged. Impression: Severe enlargement of cardiac silhouette could be due to cardiomegaly or pericardial effusion. Findings of emphysema and mild pulmonary edema. Underlying pneumonia cannot be excluded in the left lower lobe. PA and lateral chest radiographs may be helpful for further evaluation. - Date of Exam: 04/28/18 Type of Exam: CT head/brain wo con FINDINGS: The ventricles are of normal size, shape, and contour for the patient' s age. There are numerous areas of low attenuation in the white matter which most likely represent changes from chronic microvascular ischemia. There is possible cytotoxic edema in the left frontal lobe. The brainstem, cerebellum, and cerebral hemispheres otherwise have a normal morphology and CT attenuation. There is no evidence of midline displacement. No hemorrhage is evident. The visualized portions of the skull base, midface, and calvarium demonstrate no abnormality. The paranasal sinuses are well aerated and free of significant disease. The tympanic and mastoid cavities appear normal. IMPRESSION: Possible cytotoxic edema in the left frontal lobe could be due to acute or subacute ischemia. - Date of Exam: 04/28/18 Type of Exam: US venous Doppler LE BI Findings: Diffuse subcutaneous edema. There is no evidence for acute deep venous thrombosis in either thigh. Specifically, serial graded compression was performed from the inguinal ligament to the popliteal bifurcation, bilaterally, demonstrating appropriate compressibility of the deep venous system. In addition, color and pulsed Doppler demonstrate appropriate spontaneous flow, variation with respiration, and augmentation with calf compression. At the ankle, normal flow is identified in the posterior tibial veins; these vessels are also normal in caliber. Impression: No evidence of acute DVT in either lower limb. -- Date of Exam: 04/30/18 Type of Exam: XR chest 1V Findings: Interstitial prominence is again noted. No focal lobar consolidation. No pneumothorax. Possible small left pleural effusion. Cardiac silhouette remains enlarged. Mediastinal contours are stable. Pulmonary vascularity is prominent. Impression: Continued evidence of mild to moderate CHF without significant change. - Date of Exam: 05/03/18 Type of Exam: XR chest 2V FINDINGS: Improving aeration of the lungs with decreasing groundglass opacities. No new or worsening airspace consolidation. Trace left effusion is smaller. No pneumothorax. Cardiac silhouette remains significantly enlarged. Mediastinal contours are stable. Impression: Improving congestive failure. History of Present Illness HPI: Kristin is an 82-year-old female with significant dementia, who resides at [facility] in [place]. She is nonverbal, so is unable to contribute her history today. Emergency department records, the patient has demonstrated a decreased level of consciousness over the last 48 hours or so. She has a known history of COPD and CHF, but does not require oxygen therapy normally. In addition to altered mental status, she has become hypoxic, requiring 3 L of oxygen. She has been sent into the ER for further evaluation and treatment. While in the emergency department, workup revealed a subacute left frontal stroke with edema. In addition, she does have a significant UTI (versus chronic bacteriuria), and concern for heart failure exacerbation. Due to multiple significant medical concerns, she has been admitted for further evaluation and treatment. For complete details of the H&P refer to that document. Objective Vital signs: Temperature 98.0 F 05/03/18 15:42 Pulse Rate 76 05/03/18 15:42 Respiratory Rate 24 05/03/18 15:42 Blood Pressure 71/42 05/03/18 15:42 Pulse Oximetry 90 05/03/18 15:42 Rhythm: Atrial Fibrillation with Normal Ventricular Rate Height/Weight/BMI: Height 1.68 m Weight 59.1 kg Body Mass Index 24.1 Hospital Course This is a general summary of the patient's hospital course. For more details refer to the complete medical record. Hospital course: 04/28/18 Admit, inpatient. Workup of stroke will be somewhat limited due to patient's severe dementia. She is quite agitated with basic cares, I do not believe she will hold still for us to get an MRI. We may want to consider serial CT of the head instead. We'll obtain an echo today to establish baseline EF. Assess bilateral lower extremity venous Doppler due to edema, however I suspect the stroke may be due to her atrial fib. Increase her aspirin to 325 mg by mouth daily. Assess lipid panel. Due to her advanced age and significant dementia, will hold off on statin therapy at this point. Will ask speech therapy to evaluate patient. I don 't believe she has the cognitive status to work with physical or occupational therapy. She does have some edema, however on labs she appears mildly dry. She did get 20mg of Lasix in the ER, but is currently on gentle IV fluids. We'll need to monitor her fluid status closely. O2 sats are documented down to 73% on room air following her admission. Will DC the IV fluids, and provide diuresis. Levaquin 750mg given in ER for UTI, possible pneumonia. Will hold off on future doses due to dementia, behavioral changes, and cerebral edema. Await urinary cultures to further delineate abx need. She does not appear septic. Afebrile, normal WBC count. Patient is noted to be a full code. Due to her severe dementia, we will need to further discuss with her DPOA regarding their wishes on aggressive care versus a more palliative approach. Guardian: Ashley Pablito [phone]. 04/29/18 Patient has significantly improved overnight. Much more alert, pleasant, conversive. Urine cx did show E.Coli > 100k. Will resume Levaquin for treatment. Await final culture. Breathing is much better. Weight down almost 4 kg overnoc. Continue IV Lasix today, and change back to oral Lasix at home dosing in AM. Continue to hold metoprolol as BP is low normal. Watch HR. Continue dig. May need to up dig if HR becomes elevated. Edema is improved. Legs are still mildly reddened- monitor. Doppler was negative for DVT. 04/30/18 Suki continues to improve. Her weight is down another 2 kg. Mild increase in CO2- likely contraction alkalosis from duresis. Lasix changed back to daily oral dosing. Was not cooperative for ABG this morning. Continue Levaquin for significant UTI. She seems to be tolerating it well at this point. She remains in known atrial fib. Holding metoprolol. Continue digoxin. Restart BB when BP will allow. ASA only due to high risk for anticoagulation. 05/01/18 Continues to have variable behaviors; discussed with guardian who reports that patient is intermittently agitated/combative at the nursing facility. Additionally discussed question of frontal CVA on initial CT and whether to pursue additional workup, guardian felt patient's underlying disease compromises her function enough that further workup was not warranted. She is aware that aspirin dose was increased on admission and response to CT findings and that the CT finding may all be artifactual. HCO3 better today after Lasix dose decreased but minimal change in weight and continues to require 3 L O2. Single dose of Diamox to be given today to help with alkalosis and promote diuresis in conjunction with IV Lasix now. Day 4 Levaquin for UTI, discontinue after 5 days. Blood pressure and heart rate stable off metoprolol. 05/02/18 Weight is down over 6 kg since admission. Continues to require 3 L O2 (no O2 requirements at home). Single dose of IV Diamox 250mg given yesterday and this am. CO2 42-->36-->33. Will give additional 500mg po this afternoon. D/C IVF. She has completed 5 days of Levaquin for UTI today - can stop Levaquin. Labs and VS's stable. Restart home metoprolol tomorrow. 05/03/18 Respiratory status improving - O2 need decreased to 1L. CXR showing improvement of edema. Lab stable. With resolution of UTI and improving respiratory and mental status, can discharge to [facility] for continuation of care. PT/OT/Speech to help maximize functional status. Continue [facility] Soft diet with Syrup thick liquids. F/U with Dr Woods in 1 week. See orders for details. Time spent with patient: discharge greater than 30 minutes Resuscitation Status: Full Code Discharge Plan - Discharge Disposition Discharge Date: 05/03/18 Disposition: 03 To [facility] Not [facility] (SNF) *Condition: Stable Reason For Visit (Visit label in EMR): CVA,UTI,CHF exacerbation - Discharge Medications *Discharge Medications: New Aspirin *EC* [Ecotrin] 325 mg PO DAILY tab Albuterol/Ipratropium [Duoneb] 3 ml AEROSOL Q4HR PRN each PRN Reason: Shortness Of Air Continue Ibuprofen [Ibu] 600 mg PO PRN PRN PRN Reason: Pain Acetaminophen [Acetaminophen 8 Hour] 650 mg PO PRN PRN PRN Reason: Pain Sertraline [Zoloft] 25 mg PO DAILY Metoprolol Succinate [Toprol Xl] 50 mg PO DAILY Potassium Chloride [Klor-Con M20] 20 meq PO DAILY Levothyroxine Sodium 50 mcg PO DAILY Digoxin [Lanoxin] 125 mcg PO DAILY Ondansetron HCl 4 mg PO PRN PRN PRN Reason: Nausea Milk of Magnesia [Mom] 30 ml PO PRN PRN PRN Reason: Constipation Furosemide [Lasix] 40 mg PO DAILY Discontinued Aspirin [Ecotrin] 81 mg PO DAILY - Discharge Packet/Instructions *Diet: Mechanical soft with Syrup thick liquids *Activity: Increase as able *Pain Management/Treatment: Continue prior home pain medications *Wound Care: Apply bandages to skin tears as needed. Additional Instructions: N/A *Expected Signs/Symptoms: Improvement of breathing and functional status *Notify Physician if: Temp > 100.4. Increasing SOA or cough *During Business Hours Contact: Nursing staff at [facility] *After Business Hours Contact: Nursing staff at [facility] *Pending Lab/Results: No Pending Lab - Referrals/Follow Up *Referrals/Follow Up: Ayana Woods MD [Primary Care Provider] - 1 Week ([facility] follow up for CVA, UTI, CHF exacerbation) - Patient Handouts Patient Handouts: [facility] Congestive Heart Failure, Urinary Tract Infection in Women (GEN), Ischemic Stroke (GEN) - Dismissal Complete Discharge Instructions are:: Complete Physician Narrative - Narrative Physician: Dmitri Pulido MD Attestation Narrative: Date: 05/03/18 Time: 2105 I have independently interviewed and examined patient prior to discharge. See my progress note for details. Medically stable for discharge to skilled care.
== END 2018-05-03 18:10 | DRG 64 ==
LOC: ED 04:44 → EDHOLD 07:04 → SUATTDRO 07:04 → MED 07:43
PROVIDERS: ADMIT Internal Medicine; ATTEND Hospitalist